=== PATIENT | female | born 1935 | race Caucasian/White ===

== ENCOUNTER 2018-11-22 20:02 | Inpatient (IN) | payer MEDICARE ==
[~2018-11-22] VITALS: Ht 149.9 cm; Wt 59.1 kg
[~2018-11-22 20:02] MED LIST: AMBIEN10 MG PO; ATENOLOL-CHLOR1 EACH PO; ATENOLOL50 MG PO; BUPROPION HCL150 MG PO; CITALOPRAM HBR20 MG PO; CLONIDINE HCL0.2 MG PO; COLCRYS0.6 MG PO; GLYBURIDE5 MG PO; HYDROCODON-ACE1 EA12 PO; KLOR-CON 88 MEQ PO; LISINOPRIL PO; OMEPRAZOLE20 MG PO; POTASSIUM CHLOR8 ME1 PO; PROMETHAZINE HC25 M1 PO; ULTRAM50 MG PO
[2018-11-22] MEDS ORDERED: SODIUM CHLORIDE 0.9% 500ML 500 ML IV ONE (20:30)
[2018-11-22] MEDS ORDERED: ACETAMINOPHEN 325 MG TAB PO ONE (20:45)
[2018-11-22 20:52] LABS: BASOPHILS % 0.3 % (0.0-1.0); EOSINOPHILS # (AUTO) 0.1 (0.0-0.4); EOSINOPHILS % 0.8 % (0.0-6.0); HEMATOCRIT 27.2 % (34.2-44.1); HEMOGLOBIN 9.1 g/dL (12.0-16.0); LYMPHOCYTES # (AUTO) 1.4 (1.0-3.2); LYMPHOCYTES % 14.6 % (18.0-39.1); MEAN CORPUSCULAR HEMOGLOBIN 30.7 pg (28-32); MEAN CORPUSCULAR HGB CONC 33.5 g/dL (31-35); MEAN CORPUSCULAR VOLUME 91.9 fL (81-99); MONOCYTES # (AUTO) 0.7 (0.2-0.8); MONOCYTES % 7.5 % (4.4-11.3); NEUTROPHILS # (AUTO) 7.1 (2.1-6.9); NEUTROPHILS % 76.3 % (38.7-80.0); PLATELET COUNT 198 x10e3/uL (140-360); RED BLOOD COUNT 2.96 x10e6/uL (3.6-5.1); RED CELL DISTRIBUTION WIDTH 13.6 % (11.7-14.4)
[2018-11-22 21:01] LABS: INR 0.99; PROTHROMBIN TIME 13.6 seconds (11.9-14.5)
[2018-11-22 21:02] LABS: PARTIAL THROMBOPLASTIN TIME 31.7 seconds (23.8-35.5)
[2018-11-22 21:09] LABS: ALBUMIN 3.2 g/dL (3.5-5.0); ALBUMIN/GLOBULIN RATIO 0.9 (0.8-2.0); ALKALINE PHOSPHATASE 100 IU/L (40-150); ANION GAP 13.1 mmol/L (8-16); BLOOD UREA NITROGEN 20 mg/dL (7-26); BUN/CREATININE RATIO 14 (6-25); CALCIUM 8.4 mg/dL (8.4-10.2); CARBON DIOXIDE 23 mmol/L (22-29); CHLORIDE 105 mmol/L (98-107); CREATINE KINASE 79 IU/L (29-168); CREATININE, SERUM 1.44 mg/dL (0.57-1.11); EST GLOMERULAR FILTRATION RATE 35 ML/MIN (60-); GLUCOSE 109 mg/dL (74-118); POTASSIUM 3.1 mmol/L (3.5-5.1); SODIUM 138 mmol/L (136-145)
--- NOTE | 2018-11-22 21:09 | Diagnostic Imaging Report ---
EXAMINATION: Head CT without contrast. HISTORY:Fall. COMPARISON:None. TECHNIQUE: Multidetector axial images were obtained from the foramen magnum to the vertex without contrast. The images were reconstructed using brain and bone algorithms. Thin section brain images were reformatted into coronal and sagittal planes. Dose modulation, iterative reconstruction, and/or weight based adjustment of the mA/kV was utilized to reduce the radiation dose to as low as reasonably achievable. Intravenous contrast: None IMAGE QUALITY: Acceptable. FINDINGS: Skull/scalp: No lytic or blastic. lesions. No surgical changes. 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 Nonspecific bilateral frontoparietal confluent and patchy white matter hypodensity are likely related to small vessel ischemic changes. No acute hemorrhage, mass or acute major vascular territorial infarct. Arteries: No density suggestive of thrombosis. Atherosclerotic calcification in bilateral carotid siphon. Dural sinuses: No abnormal density suggestive of thrombosis. Ventricles: No hydrocephalus or displacement. Extra-axial spaces: No abnormal density. Brain volume: Generalized age-related cerebral volume loss. Craniocervical junction: No mass, Chiari malformation, or basilar invagination. Sella: No mass. Paranasal/mastoid sinuses: Imaged portions unremarkable. IMPRESSION: 1. No acute posttraumatic intracranial abnormality. 2. Generalized age-related cerebral volume loss. 3. Moderate supratentorial white matter microvascular ischemic changes. Signed by: Dr. Pamela Forman M.D. on 11/22/2018 9:06 PM
[2018-11-22 21:10] LABS: ALANINE AMINOTRANSFERASE < 6 IU/L (0-55)
--- NOTE | 2018-11-22 21:15 | Diagnostic Imaging Report ---
History: Fall. Comparison studies: None Technique: Axial images were obtained through the cervical region.. Coronal and sagittal images reconstructed from the axial data. Dose modulation, iterative reconstruction, and/or weight based adjustment of the mA/kV was utilized to reduce the radiation dose to as low as reasonably achievable. Intravenous contrast: None Findings: Fractures: None. Soft tissue injuries: None. Atlantoaxial articulation: Intact. Alignment: Loss of normal cervical lordosis is either positional or due to muscle spasm. No scoliosis. 2 mm grade 1 anterolisthesis at C3-C4 and 1.5 mm grade 1 retrolisthesis at C4-C5 are likely degenerative. Cervicomedullary junction: No abnormalities. The foramen magnum is patent. Soft tissues: No abnormalities. Vertebrae: No fractures, infection or neoplasm. Degenerative changes: C3-C4: Mild to moderate degenerative disc disease. Mild right foraminal stenosis due to facet and uncovertebral arthrosis. C4-C5: Severe degenerative disc disease. Posterior disc osteophyte complex without significant canal stenosis. Moderate bilateral foraminal stenosis due to facet and uncovertebral arthrosis. C5-C6: Severe degenerative disc disease. Posterior disc osteophyte complex without canal stenosis. Severe right and moderate left foraminal stenosis due to facet and uncovertebral arthrosis. C6-C7: Severe degenerative disc disease. C7-T1: Moderate to severe degenerative disc disease. IMPRESSION: 1. No acute cervical spine fracture or dislocation. Loss of normal cervical lordosis is either positional or due to muscle spasm. 2. Ligament, spinal cord and or vascular abnormalities cannot be excluded on the basis of this examination. 3. Grade 1 anterolisthesis at C3-C4 and grade 1 L listhesis at C4-C5 is likely degenerative. 4. Cervical spondylosis as detailed above. Signed by: Dr. Pamela Forman M.D. on 11/22/2018 9:11 PM
--- NOTE | 2018-11-22 21:28 | Diagnostic Imaging Report ---
HIP LEFT 2-3 VW (+/- PELVIS) - 3 views HISTORY: Pain. Fall. COMPARISON: None available. FINDINGS: Bones: No acute displaced fracture. Impacted left femoral neck. Osseous alignment is within normal limits. Joints: The joint spaces are well-maintained. Soft tissues: The soft tissues appear unremarkable. IMPRESSION: Impacted left femoral neck, concerning for possible fracture. Lateral view were suboptimal. Signed by: Dr. Leo Linder M.D. on 11/22/2018 9:25 PM
--- NOTE | 2018-11-22 21:29 | Diagnostic Imaging Report ---
EXAMINATION: CHEST SINGLE (PORTABLE) INDICATION: ^FALL, FEVER COMPARISON: Chest x-ray 08/05/2014. FINDINGS: AP view TUBES and LINES: None. LUNGS: Lungs are well inflated. Bilateral peribronchial cuffing. There is no evidence of pneumonia or pulmonary edema. PLEURA: No pleural effusion or pneumothorax. HEART AND MEDIASTINUM: The cardiomediastinal silhouette is unremarkable. BONES AND SOFT TISSUES: No acute osseous lesion. Soft tissues are unremarkable. Left axillary surgical clips. UPPER ABDOMEN: No free air under the diaphragm. There are cholecystectomy clips. IMPRESSION: Bilateral peribronchial cuffing, which could represent viral etiology or reactive airway disease. Signed by: Dr. Leo Linder M.D. on 11/22/2018 9:26 PM
--- NOTE | 2018-11-22 21:30 | Diagnostic Imaging Report ---
FEMUR ONE VIEW LEFT - 1 views HISTORY: Pain. Fall COMPARISON: None available. FINDINGS: Bones: No acute displaced fracture. Impacted left femoral neck. Osseous alignment is within normal limits. Joints: Moderate to severe degenerative changes in the knee. Soft tissues: The soft tissues appear unremarkable. IMPRESSION: 1. Impacted left femoral neck, concerning for possible fracture. 2. Moderate to severe degenerative changes of the left knee. Signed by: Dr. Leo Linder M.D. on 11/22/2018 9:27 PM
[2018-11-22] MEDS ORDERED: POTASSIUM CHLORIDE 20 MEQ TAB CR PO ONE (21:45)
--- NOTE | 2018-11-22 22:29 | Diagnostic Imaging Report ---
EXAM: CT Chest WITHOUT contrast INDICATION: ^FEVER, ? RUL MASS COMPARISON: Chest x-ray 11/22/2017. 07/16/2014. CT chest 05/23/2014. TECHNIQUE: Chest was scanned utilizing a multidetector helical scanner from the lung apex through the level of the adrenal glands without administration of IV contrast. Absence of intravenous contrast decreases sensitivity for detection of lymphadenopathy and vascular pathology. Coronal and sagittal reformations were obtained. Routine protocol was performed. IV CONTRAST: None COMPLICATIONS: None RADIATION DOSE: Total DLP: 371.93 mGy*cm Estimated effective dose: (DLP x 0.014 x size factor) mSv CTDIvol has been reviewed. It is below the limits set by the Radiation Protocol Committee (RPC). Dose modulation, iterative reconstruction, and/or weight based adjustment of the mA/kV was utilized to reduce the radiation dose to as low as reasonably achievable. FINDINGS: LINES/ TUBES: None. LUNGS AND AIRWAYS: There is bibasilar atelectasis. Very mild bronchial wall thickening. Airways are normal. PLEURA: The pleural spaces are clear. HEART AND MEDIASTINUM: The thyroid gland is normal. No mediastinal, hilar or axillary lymphadenopathy. The heart is mildly enlarged. There is no pericardial effusion. Severe coronary artery calcifications of the LAD. Main pulmonary artery measures 2.4 cm. Ascending aorta measures 3.1 cm. UPPER ABDOMEN: Cholecystectomy. Small sliding hiatal hernia. Upper abdomen is otherwise unremarkable. BONES: The visualized bony thorax is within normal limits. SOFT TISSUES: Unremarkable. IMPRESSION: 1. Mild bronchial wall thickening, likely related to reactive airway disease. 2. Right upper lobe density seen on chest x-ray 11/22/2018 is unchanged compared to chest x-ray 07/16/[address] chest 05/23/2014. This correlates with vessels. Signed by: Dr. Leo Linder M.D. on 11/22/2018 10:26 PM
[2018-11-22] MEDS ORDERED: KCL 20MEQ/.9 SOD CHL 1,000 ML IV ONE (22:30)
[2018-11-22] MEDS: HYDRALAZINE HCL 20 MG/ML VIAL IV STA (22:30)
[2018-11-22] MEDS ORDERED: DEXTROSE 50% SYRINGE 50 ML IV PRN (22:30)
[2018-11-22] MEDS: MAGNESIUM SULFATE 2GM/50ML 50 ML IV ONE (22:32)
--- OUTSIDE RECORDS SUMMARY | 2018-11-22 23:17 | XMS REPORT ---
Author Author [facility] Address Unknown Phone Unavailable Care Team Providers [facility] Patient Care Secretary Name Role Phone Ria KOHLER Unavailable Unavailable Problems This patient has no known problems. Allergies, Adverse Reactions, Alerts This patient has no known allergies or adverse reactions. Medications This patient has no known medications. Results Test Description Test Time Test Comments Text Results Atomic Results Result Comments CT CHEST WO 2018-11-22 22:16:00 [place] [address] Patient Name: ROSEMARY POSADA MR #: [id number] : 1935 Age/Sex: 83/F Req #: [id number] Adm Physician: Ordered by: LG KOHLER MD Report #: [id number] Location: ER Room/Bed: Procedure: [id number] CT/CT CHEST WO Exam Date: 11/22/18 Exam Time: 6 REPORT STATUS: Signed EXAM: CT Chest WITHOUT contrast INDICATION: FEVER, ? RUL MASS COMPARISON: Chest x-ray 11/22/2017. 07/16/2014. CT chest 05/23/2014. TECHNIQUE: Chest was scanned utilizing a multidetector helical scanner from the lung apex through the level of the adrenal glands without administration of IV contrast. Absence of intravenous contrast decreases sensitivity for detection of lymphadenopathy and vascular pathology. Coronal and sagittal reformations were obtained. Routine protocol was performed. IV CONTRAST: None COMPLICATIONS: None RADIATION DOSE: Total DLP: 371.93 mGy*cm Estimated effective dose: (DLP x 0.014 x size factor) mSv CTDIvol has been reviewed. It is below the limits set by the Radiation Protocol Committee (RPC). Dose modulation, iterative reconstruction, and/or weight based adjustment of the mA/kV was utilized to reduce the radiation dose to as low as reasonably achievable. FINDINGS: LINES/ TUBES: None. LUNGS AND AIRWAYS: There is bibasilar atelectasis. Very mild bronchial wall thickening. Airways are normal. PLEURA: The pleural spaces are clear. HEART AND MEDIASTINUM: The thyroid gland is normal. No mediastinal, hilar or axillary lymphadenopathy. The heart is mildly enlarged. There is no pericardial effusion. Severe coronary artery calcifications of the LAD. Main pulmonary artery measures 2.4 cm. Ascending aorta measures 3.1 cm. UPPER ABDOMEN: Cholecystectomy. Small sliding hiatal hernia. Upper abdomen is otherwise unremarkable. BONES: The visualized bony thorax is within normal limits. SOFT TISSUES: Unre markable. IMPRESSION: 1. Mild bronchial wall thickening, likely related to reactive airway disease. 2. Right upper lobe density seen on chest x-ray 11/22/2018 is unchanged compared to chest x-ray 07/16/[address] chest 05/23/2014. This correlates with vessels. Signed by: Dr. James Linder M.D. on 11/22/2018 10:26 PM Dictated By: JAMES LINDER MD 25 Transcribed By: ELODIA on 11/22/182225 COPY TO: LG KOHLER MD FEMUR ONE VIEW LEFT 2018-11-22 21:26:00 [place] [address] Patient Name: ROSEMARY POSADA MR #: [id number] : 1935 Age/Sex: 83/F Req #: [id number] Adm Physician: Ordered by: LG KOHLER MD Report #: [id number] Location: ER Room/Bed: Procedure: DX/FEMUR ONE VIEW LEFT Exam Date: Exam Time: REPORT STATUS: Signed FEMUR ONE VIEW LEFT - 1 views HISTORY: Pain. Fall COMPARISON: None available. FINDINGS: Bones: No acute displaced fracture. Impacted left femoral neck. Osseous alignment is within normal limits. Joints: Moderate to severe degenerative changes in the knee. Soft tissues: The soft tissues appear unremarkable. IMPRESSION: 1. Impacted left femoral neck, concerning for possible fracture. 2. Moderate to severe degenerative changes of the left knee. Signed by: Dr. James Linder M.D. on 11/22/2018 9:27 PM Dictated By: JAMES LINDER MD 26 Transcribed By: ELODIA on 11/22/182126 COPY TO: LG KOHLER MD CHEST SINGLE (PORTABLE) 2018-11-22 21:25:00 [place] [address] Patient Name: ROSEMARY POSADA MR #: [id number] : 1935 Age/Sex: 83/F Req #: [id number] Adm Physician: Ordered by: LG KOHLER MD Report #: [id number] Location: ER Room/Bed: Procedure: [id number] DX/CHEST SINGLE (PORTABLE) Exam Date: 11/22/18 Exam Time: 2049 REPORT STATUS: Signed EXAMINATION: CHEST SINGLE (PORTABLE) INDICA TION: FALL, FEVER COMPARISON: Chest x-ray 08/05/2014. FINDINGS: AP view TUBES and LINES: None. LUNGS: Lungs are well inflated. Bilateral peribronchial cuffing. There is no evidence of pneumonia or pulmonary edema. PLEURA: No pleural effusion or pneumothorax. HEART AND MEDIASTINUM: The cardiomediastinal silhouette is unremarkable. BONES AND SOFT TISSUES: No acute osseous lesion. Soft tissues are unremarkable. Left axillary surgical clips. UPPER ABDOMEN: No free air under the diaphragm. There are cholecystectomy clips. IMPRESSION: Bilateral peribronchial cuffing, which could represent viral etiology or reactive airway disease. Signed by: Dr. James Linder M.D. on 11/22/2018 9:26 PM Dictated By: JAMES LINDER MD 25 Transcribed By: ELODIA on 11/22/182125 COPY TO: LG KOHLER MD HIP LEFT 2-3 VW (+/- PELVIS) 2018-11-22 21:24:00 [place] [address] Patient Name: ROSEMARY POSADA MR #: [id number] : 1935 Age/Sex: 83/F Req #: [id number] Adm Physician: Ordered by: LG KOHLER MD Report #: [id number] Location: ER Room/Bed: Procedure: [id number] DX/HIP LEFT 2-3 VW (+/- PELVIS) Exam Date: Exam Time: REPORT STATUS: Signed HIP LEFT 2-3 VW (+/- PELVIS) - 3 views HISTORY: Pain. Fall. COMPARISON: None available. FINDINGS: Bones: No acute displaced fracture. Impacted left femoral neck. Osseous alignment is within normal limits. Joints: The joint spaces are well-maintained. Soft tissues: The soft tissues appear unremarkable. IMPRESSION: Impacted left femoral neck, concerning for possible fracture. Lateral view were suboptimal. Signed by: Dr. James Linder M.D. on 11/22/2018 9:25 PM Dictated By: JAMES LINDER MD 24 Transcribed By: ELODIA on 11/22/182124 COPY TO: LG KOHLER MD CT CERVICAL SPINE WO 2018-11-22 21:06:00 [place] [address] Patient Name: ROSEMARY POSADA MR #: [id number] : 1935 Age/Sex: 83/F Req #: [id number] Adm Physician: Ordered by: LG KOHLER MD Report #: [id number] Location: ER Room/Bed: Procedure: [id number] CT/CT CERVICAL SPINE WO Exam Date: 11/22/18 Exam Time: 2046 REPORT STATUS: Signed History: Fall. Comparison studies: None Tech nique: Axial images were obtained through the cervical region.. Coronal and sagittal images reconstructed from the axial data. Dose modulation, iterative reconstruction, and/or weight based adjustment of the mA/kV was utilized to reduce the radiation dose to as low as reasonably achievable. Intravenous contrast: None Findings: Fractures: None. Soft tissue injuries: None. Atlantoaxial articulation: Intact. Alignment: Loss of normal cervical lordosis is either positional or due to muscle spasm. No scoliosis. 2 mm grade 1 anterolisthesis at C3-C4 and 1.5 mm grade 1 retrolisthesis at C4-C5 are likely degenerative. Cervicomedullary junction: No abnormalities. The foramen magnum is patent. Soft tissues: No abnormalities. Vertebrae: No fractures, infection or neoplasm. Degenerative changes: C3-C4: Mild to moderate degenerative disc disease. Mild right foraminal stenosis due to facet and uncovertebral arthrosis. C4-C5: Severe degenerative disc disease. Posterior disc osteophyte complex without significant canal stenosis. Moderate bilateral foraminal stenosis due to facet and uncovertebral arthrosis. C5-C6: Severe degenerative disc disease. Posterior disc osteophyte complex without canal stenosis. Severe right and moderate left foraminal stenosis due to facet and uncovertebral arthrosis. C6-C7: Severe degenerative disc disea se. C7-T1: Moderate to severe degenerative disc disease. IMPRESSION: 1. No acute cervical spine fracture or dislocation. Loss of normal cervical lordosis is either positional or due to muscle spasm. 2. Ligament, spinal cord and or vascular abnormalities cannot be excluded on the basis of this examination. 3. Grade 1 anterolisthesis at C3-C4 and grade 1 L listhesis at C4-C5 is likely degenerative. 4. Cervical spondylosis as detailed above. Signed by: Dr. Pamela Forman M.D. on 11/22/2018 9:11 PM Dictated By: PAMELA FORMAN MD 10 Transcribed By: ELODIA on 11/22/182110 COPY TO: LG KOHLER MD CT BRAIN WO 2018-11-22 21:02:00 [place] [address] Patient Name: ROSEMARY POSADA MR #: [id number] : 1935 Age/Sex: 83/F Req #: [id number] Adm Physician: Ordered by: LG KOHLER MD Report #: [id number] Location: Room/Bed: Procedure: [id number] CT/CT BRAIN WO Exam Date: 11/22/18 Exam Time: 2046 REPORT STATUS: Signed EXAMINATION: Head CT without contrast. HISTORY:Fall. COMPARISON:None. TECHNIQUE: Multidetector axial images were obtained from the foramen magnum to the vertex without contrast. The images were reconstructed using brain and bone algorithms. Thin section brain images were reformatted into coronal and sagittal planes. Dose modulation, iterative reconstruction, and/or weight based adjustment of the mA/kV was utilized to reduce the radiation dose to as low as reasonably achievable. Intravenous contrast: None IMAGE QUALITY: Acceptable. FINDINGS: Skull/scalp: No lytic or blastic. lesions. No surgical changes. 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 Nonspecific bilateral frontoparietal confluent and patchy white matter hypodensity are likely related to small vessel ischemic changes. No acute hemorrhage, mass or acute major vascular territorial infarct. Arteries: No density suggestive of thrombosis. Atherosclerotic calcification in bilateral carotid siphon. Dural sinuses: No abnormal density suggestive of thrombosis. Ventricles: No hydrocephalus or displacement. Extra- axial spaces: No abnormal density. Brain volume: Generalized age-related cerebral volume loss. Craniocervical junction: No mass, Chiari malformation, or basilar invagination. Sella: No mass. Paranasal/mastoid sinuses: Imaged portions unremarkable. IMPRESSION: 1. No acute posttraumatic intracranial abnormality. 2. Generalized age- related cerebral volume loss. 3. Moderate supratentorial white matter microvascular ischemic changes. Signed by: Dr. Pamela Forman M.D. on 11/22/2018 9:06 PM Dictated By: PAMELA FORMAN MD 05 Transcribed By: ELODIA on 11/22/182105 COPY TO: LG KOHLER MD
[2018-11-22 23:55] LABS: BILIRUBIN,URINE NEGATIVE (NEGATIVE); CLARITY,URINE CLEAR (CLEAR); COLOR,URINE YELLOW (YELLOW); KETONES,URINE NEGATIVE (NEGATIVE); LEUKOCYTE ESTERASE ,URINE NEGATIVE (NEGATIVE); NITRITE,URINE NEGATIVE (NEGATIVE); PROTEIN,URINE DIPSTICK NEGATIVE (NEGATIVE); URINE UROBILINOGEN 0.2 mg/dL (0.2 - 1)
--- NOTE | 2018-11-22 23:55 | NUR ---
Received from Emergency Room via stretcher.Patient is alert and oriented. Assisted transfer to bed. Oriented to room. Call light within reach.
[2018-11-22 23:59] LABS: EPITHELIAL CELLS,URINE RARE /LPF; RBC,URINE 0-5 /HPF (0-5); WBC,URINE (MAN) 0-5 /HPF (0-5)
[2018-11-23] VITALS (10 sets, daily range): BP systolic 164–190; BP diastolic 70–80
--- NOTE | 2018-11-23 00:15 | NUR ---
Foot pumps, JENNIFER hose, bucks traction applied to both lower extremities as ordered.
[2018-11-23] MEDS: MORPHINE SULFATE INJ 4 MG/ML INJ 1ML IV PRN ×5 (00:51→17:54)
[2018-11-23] MEDS: ONDANSETRON HCL INJ 2MG/ML 2ML 2 MG/ML VIAL IV PRN ×4 (01:25→17:54)
[2018-11-23] MEDS ORDERED: ATENOLOL50 MG PO (04:26)
[2018-11-23] MEDS ORDERED: DICYCLOMINE HCL10 MG (04:32)
[2018-11-23] MEDS ORDERED: CITALOPRAM HBR20 MG PO (04:32)
[2018-11-23] MEDS: HYDRALAZINE HCL 20 MG/ML VIAL IV PRN ×3 (05:23→16:20)
[2018-11-23] MEDS ORDERED: TRAMADOL HCL 50 MG TAB PO PRN (06:30)
[2018-11-23 06:37] LABS: BASOPHILS # (AUTO) 0.1 (0.0-0.1); BASOPHILS % 0.5 % (0.0-1.0); EOSINOPHILS # (AUTO) 0.2 (0.0-0.4); EOSINOPHILS % 1.3 % (0.0-6.0); HEMOGLOBIN 9.7 g/dL (12.0-16.0); LYMPHOCYTES # (AUTO) 2.4 (1.0-3.2); LYMPHOCYTES % 21.4 % (18.0-39.1); MEAN CORPUSCULAR HGB CONC 32.3 g/dL (31-35); MEAN CORPUSCULAR VOLUME 92.9 fL (81-99); MONOCYTES # (AUTO) 0.9 (0.2-0.8); MONOCYTES % 7.6 % (4.4-11.3); NEUTROPHILS # (AUTO) 7.7 (2.1-6.9); NEUTROPHILS % 68.7 % (38.7-80.0); PLATELET COUNT 235 x10e3/uL (140-360); RED BLOOD COUNT 3.23 x10e6/uL (3.6-5.1); RED CELL DISTRIBUTION WIDTH 13.8 % (11.7-14.4)
[2018-11-23 06:46] LABS: ALBUMIN 3.3 g/dL (3.5-5.0); ALBUMIN/GLOBULIN RATIO 0.9 (0.8-2.0); ANION GAP 11.7 mmol/L (8-16); CALCIUM 8.8 mg/dL (8.4-10.2); CREATININE, SERUM 1.38 mg/dL (0.57-1.11); MAGNESIUM 1.7 MG/DL (1.3-2.1); POTASSIUM 4.7 mmol/L (3.5-5.1)
[2018-11-23 07:08] LABS: CREATINE KINASE MB 3.2 ng/mL (0-5.0)
[2018-11-23] MEDS: INSULIN LISPRO 100 UNIT/1 ML 3ML VIAL SQ SCH ×4 (07:30→21:00)
[2018-11-23] MEDS: POTASSIUM CHLORIDE 20 MEQ TAB CR PO SCH (08:48)
[2018-11-23] MEDS: ATENOLOL 100 MG TAB PO SCH (08:48)
[2018-11-23] MEDS ORDERED: CHLORTHALIDONE 25 MG TAB PO SCH (09:00)
[2018-11-23] MEDS ORDERED: PANTOPRAZOLE SOD 40 MG TABEC PO SCH (09:00)
--- NOTE | 2018-11-23 11:17 | History and Physical ---
CHIEF COMPLAINT: An 83-year-old female comes in with status post fall and sustaining a left femoral fracture. HISTORY OF PRESENTING ILLNESS: Ms. Sherrell Bass with a history of hypertension, history of diet-controlled diabetes mellitus, was in usual state of health until the patient was going to the bathroom, sat down on the commode and she got up, she fell and sustained a left hip injury. The patient stayed at home for about a day. The pain was not bearable and exacerbated on walking. The patient came in, was found to have left femoral hip fracture. PAST MEDICAL HISTORY: History of hypertension, history of diabetes mellitus, history of reflux esophagitis, history of chronic insomnia, history of endometrial cancer. PAST SURGICAL HISTORY: History of hysterectomy and cholecystectomy. The patient had a hysterectomy in 2008. MEDICATIONS: She takes at home, atenolol 50 mg daily, atenolol/chlorthalidone 100/25, citalopram 20, clonidine 0.2 mg at bedtime, dicyclomine 10 mg as needed, omeprazole 20 mg daily, potassium chloride 80 mEq daily, tramadol 50 mg daily p.r.n. as needed, and zolpidem 10 mg at bedtime and 40 mg of lisinopril. ALLERGIES: THE PATIENT IS NOT ALLERGIC TO ANY MEDICATION. REVIEW OF SYSTEMS: Negative for chest pain. No shortness of breath. No nausea. No vomiting. No diarrhea. No constipation. No rectal bleeding. No hematochezia. No hematemesis. The patient has a history of chronic fever especially at nighttime and has been having this. No etiology has been noted. PHYSICAL EXAMINATION: VITAL SIGNS: Temperature is 97, blood pressure is 184/80, and pulse oximetry is 95%. CVS: S1, S2 normal. Regular rate and rhythm. ABDOMEN: Nontender and nondistended. EXTREMITIES: Right lower extremity in traction, tender to palpate in the hip. LABORATORY DATA: Initial white count is 2.33, hemoglobin of 9.1, hematocrit of 27.2, no left shift present. Chemistry; sodium of 138, potassium 3.1, magnesium is 1. Coags; PT, INR normal. Urine all within normal limits. Influenza A and B negative. ASSESSMENT: Right hip closed fracture. Orthopedic consult with Dr. Hdz has been done. The patient's hypokalemia has been corrected. Hypomagnesemia has been corrected. Fever, we will continue to monitor the patient. Tylenol is on order. For hypertension, we will restart all her medications. For diabetes, we will do Chem sticks q.a.c. and at bedtime and continue to monitor the patient. Further recommendation per clinical course, and also the patient will be on-call surgery depending on Dr. Hdz. MD ROGELIO Azevedo/MIRTAL /[id number]
[2018-11-23] MEDS: TRAMADOL HCL 50 MG TAB PO PRN (11:50)
--- NOTE | 2018-11-23 14:08 | NUR ---
PT REQUESTING MEDICATION FOR INDIGESTION. PAGED DR. FREEMAN AT THIS TIME. AWAITING CALL BACK.
[2018-11-23] MEDS: PANTOPRAZOLE SOD 40 MG TABEC PO SCH (14:56)
[2018-11-23 15:00] LABS: CREATINE KINASE MB 4.3 ng/mL (0-5.0)
[2018-11-23] MEDS: CLONIDINE HCL 0.2 MG TAB PO SCH (20:55)
[2018-11-23] MEDS: CITALOPRAM HYDROBROMIDE 20 MG TAB PO SCH (20:55)
[2018-11-23] MEDS: DIPHENHYDRAMINE HCL 25 MG CAP PO PRN (20:55)
[2018-11-23] MEDS: ZOLPIDEM TARTRATE 10 MG TAB PO SCH (20:55)
[2018-11-24] VITALS (8 sets, daily range): BP systolic 120–190; BP diastolic 56–79
[2018-11-24 06:04] LABS: BASOPHILS % 0.3 % (0.0-1.0); EOSINOPHILS % 0.3 % (0.0-6.0); HEMATOCRIT 29.5 % (34.2-44.1); HEMOGLOBIN 9.2 g/dL (12.0-16.0); LYMPHOCYTES % 7.5 % (18.0-39.1); MEAN CORPUSCULAR HEMOGLOBIN 30.1 pg (28-32); MEAN CORPUSCULAR HGB CONC 31.2 g/dL (31-35); MONOCYTES % 7.7 % (4.4-11.3); NEUTROPHILS # (AUTO) 11.2 (2.1-6.9); NEUTROPHILS % 83.7 % (38.7-80.0); PLATELET COUNT 219 x10e3/uL (140-360); RED BLOOD COUNT 3.06 x10e6/uL (3.6-5.1); RED CELL DISTRIBUTION WIDTH 14.3 % (11.7-14.4)
[2018-11-24 06:08] LABS: MEAN CORPUSCULAR VOLUME 96.4 fL (81-99)
[2018-11-24 06:25] LABS: ANION GAP 13.7 mmol/L (8-16); CALCIUM 9.5 mg/dL (8.4-10.2); CREATININE, SERUM 2.07 mg/dL (0.57-1.11); POTASSIUM 4.7 mmol/L (3.5-5.1)
[2018-11-24] MEDS: ONDANSETRON HCL INJ 2MG/ML 2ML 2 MG/ML VIAL IV PRN ×4 (07:19→20:09)
[2018-11-24] MEDS: INSULIN LISPRO 100 UNIT/1 ML 3ML VIAL SQ SCH ×4 (07:30→21:00)
[2018-11-24] MEDS: PANTOPRAZOLE SOD 40 MG TABEC PO SCH ×2 (09:00→16:30)
[2018-11-24] MEDS: POTASSIUM CHLORIDE 20 MEQ TAB CR PO SCH (09:00)
[2018-11-24] MEDS: ATENOLOL 100 MG TAB PO SCH (09:01)
--- NOTE | 2018-11-24 10:06 | Progress Note ---
DATE: 11/24/2018 SUBJECTIVE: An 83-year-old female comes in with a hip fracture. The patient is currently asymptomatic. Slept well. The patient is on traction at this time. No chest pain. No shortness of breath. No nausea, vomiting, or diarrhea. No palpitation. PHYSICAL EXAMINATION: VITAL SIGNS: Temperature is 99.0. The patient's T-max is 99.8 that was yesterday at 1930, blood pressure is 146/72, respirations of 20, and pulse of 96. HEENT: Normocephalic, atraumatic. CVS: S1 and S2 regular. ABDOMEN: Nontender, nondistended. EXTREMITIES: No clubbing, no cyanosis, and no edema. The patient is on traction at this time and hip tenderness is noted. LABORATORY DATA: Today's white count is 13,000, hemoglobin of 9.2, and hematocrit of 29.5. There was left shift present today. Chemistry shows 140 sodium, potassium 4.7, BUN of 23, creatinine of 2.07 compared to yesterday's 1.38. MICROBIOLOGY: Urine culture preliminary shows no growth. Blood culture has been negative too. ASSESSMENT AND PLAN: Right hip fracture. The patient has been seen by Dr. Hdz. Consult has been put. The patient is scheduled for surgery in the morning. Hypomagnesemia corrected. The patient's fever, we will continue to monitor. Continue with Tylenol. The patient is diabetic. Chemsticks and insulin sliding scale. Hypertension, we will restart her medications. Her kidney functions have gone a little on the lower side. We will go ahead and increase her hydration to 100 mL an hour and check her labs in the morning. The patient also has irregular rhythm at this time. We will go ahead and have her placed on telemetry. Further recommendation per clinical course. We will continue to monitor the patient as far as renal function. We will check her BMP in the morning. MD ROGELIO Azevedo/MODL /[id number]
--- NOTE | 2018-11-24 13:38 | NUR ---
PAGED DR. PRITCHETT TO NOTIFY REGARDING NEW CONSULT. SPOKE TO
[2018-11-24] MEDS: LEVOFLOXACIN 250MG/D5W 50ML 50 ML IV SCH (14:45)
[2018-11-24] MEDS: SODIUM CHLORIDE 0.9% 1000ML 1,000 ML IV SCH (14:45)
[2018-11-24] MEDS: MORPHINE SULFATE INJ 4 MG/ML INJ 1ML IV PRN (14:45)
[2018-11-24] MEDS: DIPHENHYDRAMINE HCL 25 MG CAP PO PRN (15:00)
[2018-11-24] MEDS ORDERED: ENOXAPARIN SOD INJ 40 MG/0.4 ML SYR SC ONE (16:00)
[2018-11-24] MEDS ORDERED: ENOXAPARIN 30 MG/0.3 ML SYR SC ONE (16:00)
[2018-11-24] MEDS: HYDRALAZINE HCL 20 MG/ML VIAL IV PRN (16:30)
[2018-11-24] MEDS: ZOLPIDEM TARTRATE 10 MG TAB PO SCH (20:10)
[2018-11-24] MEDS: CITALOPRAM HYDROBROMIDE 20 MG TAB PO SCH (20:10)
[2018-11-24] MEDS: TRAMADOL HCL 50 MG TAB PO PRN (20:10)
[2018-11-24] MEDS: CLONIDINE HCL 0.2 MG TAB PO SCH (20:47)
[2018-11-24] MEDS: ACETAMINOPHEN 325 MG TAB PO PRN (21:57)
[2018-11-25] VITALS (8 sets, daily range): BP systolic 110–197; BP diastolic 56–84
[2018-11-25] MEDS: SODIUM CHLORIDE 0.9% 1000ML 1,000 ML IV SCH (03:02)
[2018-11-25] MEDS: BISACODYL 5 MG TAB EC PO SCH ×4 (06:15→23:56)
[2018-11-25 06:44] LABS: BASOPHILS % 0.4 % (0.0-1.0); EOSINOPHILS # (AUTO) 0.2 (0.0-0.4); EOSINOPHILS % 2.5 % (0.0-6.0); HEMATOCRIT 23.3 % (34.2-44.1); HEMOGLOBIN 7.3 g/dL (12.0-16.0); LYMPHOCYTES # (AUTO) 1.3 (1.0-3.2); MEAN CORPUSCULAR HEMOGLOBIN 30.3 pg (28-32); MEAN CORPUSCULAR HGB CONC 31.3 g/dL (31-35); MEAN CORPUSCULAR VOLUME 96.7 fL (81-99); MONOCYTES % 11.5 % (4.4-11.3); NEUTROPHILS # (AUTO) 6.4 (2.1-6.9); NEUTROPHILS % 71.2 % (38.7-80.0); PLATELET COUNT 162 x10e3/uL (140-360); RED BLOOD COUNT 2.41 x10e6/uL (3.6-5.1); RED CELL DISTRIBUTION WIDTH 13.9 % (11.7-14.4)
[2018-11-25 06:59] LABS: ANION GAP 10.4 mmol/L (8-16); CALCIUM 8.8 mg/dL (8.4-10.2); CREATININE, SERUM 2.14 mg/dL (0.57-1.11); POTASSIUM 4.4 mmol/L (3.5-5.1)
[2018-11-25] MEDS: INSULIN LISPRO 100 UNIT/1 ML 3ML VIAL SQ SCH ×4 (07:30→20:51)
--- NOTE | 2018-11-25 07:31 | NUR ---
infectious has cleared pt for sx
--- NOTE | 2018-11-25 07:39 | NUR ---
paged md degroot for possible sx spoke with md campos regarding low hbg count new orders received to transfuse at this time
[2018-11-25] MEDS ORDERED: SODIUM CHLORIDE 0.9% 250ML 250 ML IV ONE (08:00)
--- NOTE | 2018-11-25 08:10 | NUR ---
spoke with md degroot. has scheduled sx for tomorrow due to pt hgb status
[2018-11-25] MEDS: PANTOPRAZOLE SOD 40 MG TABEC PO SCH ×2 (09:00→16:34)
[2018-11-25] MEDS: ATENOLOL 100 MG TAB PO SCH (09:00)
[2018-11-25] MEDS: POTASSIUM CHLORIDE 20 MEQ TAB CR PO SCH (09:00)
--- NOTE | 2018-11-25 10:30 | NUR ---
1st unit of blood now started. verified with rhonda landry at bedside
--- NOTE | 2018-11-25 12:30 | NUR ---
1st unit of blood transfusion complete . pt had no s.s of a/r , will continue to monitor
[2018-11-25] MEDS: MORPHINE SULFATE INJ 4 MG/ML INJ 1ML IV PRN ×2 (12:37→18:07)
[2018-11-25] MEDS: ONDANSETRON HCL INJ 2MG/ML 2ML 2 MG/ML VIAL IV PRN (12:37)
--- NOTE | 2018-11-25 13:20 | NUR ---
2ND UNIT OF BLOOD STARTED. VERIFIED WITH RN LUIZA AT BEDSIDE
[2018-11-25] MEDS: HYDRALAZINE HCL 20 MG/ML VIAL IV PRN ×2 (13:36→23:31)
[2018-11-25] MEDS ORDERED: FUROSEMIDE INJ 10 MG/ML 2 ML VIAL IV ONE (14:30)
[2018-11-25] MEDS: LEVOFLOXACIN 250MG/D5W 50ML 50 ML IV SCH (15:53)
[2018-11-25] MEDS: ONDANSETRON HCL 4 MG ORAL DISINTEGRATING TAB PO PRN (18:07)
[2018-11-25 20:02] LABS: HEMATOCRIT 36.9 % (34.2-44.1); HEMOGLOBIN 12.4 g/dL (12.0-16.0)
[2018-11-25] MEDS: ZOLPIDEM TARTRATE 10 MG TAB PO SCH (20:50)
[2018-11-25] MEDS: CLONIDINE HCL 0.2 MG TAB PO SCH (20:50)
[2018-11-25] MEDS: CITALOPRAM HYDROBROMIDE 20 MG TAB PO SCH (20:50)
[2018-11-25] MEDS: LISINOPRIL 20 MG TAB PO SCH (20:51)
[2018-11-25] MEDS ORDERED: LISINOPRIL 40 MG PO SCH (21:00)
[2018-11-26] VITALS (14 sets, daily range): BP systolic 107–188; BP diastolic 52–105
[2018-11-26] MEDS: BISACODYL 5 MG TAB EC PO SCH ×5 (04:11→23:19)
[2018-11-26 06:02] LABS: BASOPHILS # (AUTO) 0.1 (0.0-0.1); BASOPHILS % 0.4 % (0.0-1.0); EOSINOPHILS # (AUTO) 0.1 (0.0-0.4); EOSINOPHILS % 0.8 % (0.0-6.0); HEMATOCRIT 37.8 % (34.2-44.1); LYMPHOCYTES % 7.6 % (18.0-39.1); MEAN CORPUSCULAR HEMOGLOBIN 31.1 pg (28-32); MEAN CORPUSCULAR HGB CONC 34.4 g/dL (31-35); MEAN CORPUSCULAR VOLUME 90.4 fL (81-99); MONOCYTES # (AUTO) 1.3 (0.2-0.8); MONOCYTES % 9.9 % (4.4-11.3); NEUTROPHILS # (AUTO) 10.5 (2.1-6.9); NEUTROPHILS % 80.9 % (38.7-80.0); PLATELET COUNT 207 x10e3/uL (140-360); RED BLOOD COUNT 4.18 x10e6/uL (3.6-5.1); RED CELL DISTRIBUTION WIDTH 14.1 % (11.7-14.4)
[2018-11-26 06:16] LABS: ANION GAP 16.2 mmol/L (8-16); CREATININE, SERUM 1.96 mg/dL (0.57-1.11); POTASSIUM 3.2 mmol/L (3.5-5.1)
--- NOTE | 2018-11-26 06:54 | NUR ---
INFORMED DR. FREEMAN REGARDING POTASSIUM READING 3.2. NEW ORDER RCV FOR POTASSIUM 40MG IV TO BE GIVEN OVER 4 HOURS.
[2018-11-26] MEDS ORDERED: POTASSIUM CHLORIDE 20MEQ/100ML 200 ML IV ONE (07:00)
[2018-11-26] MEDS ORDERED: CEFAZOLIN SOD 2 GM/D5W 50ML 50 ML IV ONE (07:00)
[2018-11-26] MEDS ORDERED: CEFAZOLIN SOD 1 GM VIAL IV ONE (07:00)
[2018-11-26] MEDS: PANTOPRAZOLE SOD 40 MG TABEC PO SCH ×2 (07:30→16:30)
[2018-11-26] MEDS: INSULIN LISPRO 100 UNIT/1 ML 3ML VIAL SQ SCH ×4 (07:30→21:00)
--- NOTE | 2018-11-26 07:35 | NUR ---
Rcvd patient in report this am. Patient is awake in bed at this time. Patient is NPO at this time. Patient in bucks traction as well. No s/s of distress noted
[2018-11-26] MEDS: POTASSIUM CHLORIDE 20MEQ/100ML 100 ML IV SCH ×2 (07:50→09:34)
[2018-11-26] MEDS: HYDRALAZINE HCL 20 MG/ML VIAL IV PRN (07:57)
[2018-11-26] MEDS: POTASSIUM CHLORIDE 20 MEQ TAB CR PO SCH (08:17)
[2018-11-26] MEDS: SODIUM CHLORIDE 0.9% 1000ML 1,000 ML IV SCH ×3 (08:45→14:27)
[2018-11-26] MEDS: BISACODYL 10 MG SUPP PR PRN (09:34)
[2018-11-26] MEDS: ONDANSETRON HCL 4 MG ORAL DISINTEGRATING TAB PO PRN (09:41)
[2018-11-26] MEDS: MORPHINE SULFATE INJ 4 MG/ML INJ 1ML IV PRN (09:41)
--- NOTE | 2018-11-26 10:47 | NUR ---
Patient c/o severe constipation. Suppository given and patient requesting an enema. Call placed to MD for orders. Orders noted
[2018-11-26] MEDS: MINERAL OIL 132 ML BTL PR PRN (11:13)
--- NOTE | 2018-11-26 12:57 | NUR ---
Patient went to OR at this time. Family at bedside
[2018-11-26] MEDS ORDERED: BACITRACIN 50,000 UNIT VIAL ONE (13:02)
[2018-11-26] MEDS ORDERED: LIDOCAINE HCL 2% LOCAL INJ 5 ML SDV VIAL INJ ONE (13:15)
[2018-11-26] MEDS ORDERED: SEVOFLURANE INHAL SOLN 250 ML PEN BTL ONE (13:15)
[2018-11-26] MEDS ORDERED: EPHEDRINE SULFATE INJ 50 MG/10 ML SYR ONE (13:15)
[2018-11-26] MEDS ORDERED: ONDANSETRON HCL INJ 2MG/ML 2ML 2 MG/ML VIAL ONE (13:15)
[2018-11-26] MEDS ORDERED: PROPOFOL IV EMULSION 10 MG/ML 20 ML VIAL ONE (13:15)
[2018-11-26] MEDS ORDERED: ROCURONIUM BROMIDE 10 MG/ML 5ML VIAL ONE (13:15)
[2018-11-26] MEDS: LEVOFLOXACIN 250MG/D5W 50ML 50 ML IV SCH (14:00)
[2018-11-26] MEDS ORDERED: HYDROMORPHONE 0.2MG/ML-SOD CHL 30ML PCA SYRINGE IV PRN (14:30)
[2018-11-26] MEDS ORDERED: ACETAMINOPHEN 650 MG SUPP PR PRN (14:30)
[2018-11-26] MEDS ORDERED: NALOXONE HCL INJ 0.4 MG/ML AMP IV PRN (14:30)
[2018-11-26] MEDS ORDERED: HYDROMORPHONE 0.2MG/ML-SOD CHL 30ML PCA SYRINGE IV ONE (15:50)
--- NOTE | 2018-11-26 15:51 | NUR ---
Report given to KATHERIN Hilliard. Patient to transfer to ICU after surgery. Family informed and aware
--- NOTE | 2018-11-26 16:58 | Diagnostic Imaging Report ---
Radiographs of the left hip and pelvis - 2 views HISTORY: Pain. Postop COMPARISON: 11/22/2018 FINDINGS: Bones: Osseous alignment is within normal limits. Joints: Surgical screws through the proximal left femur are intact. There are associated postsurgical changes about the left hip. Soft tissues: The soft tissues appear unremarkable. IMPRESSION: Surgical screws through the proximal left femur are intact. There are associated postsurgical changes about the left hip Signed by: Dr. Alexis Ibarra M.D. on 11/26/2018 4:55 PM
--- NOTE | 2018-11-26 17:09 | NUR ---
GAVE PACKET OF INFORMATION WITH COMMUNITY [employer]OURCES FOR ASSISTANCE WITH LOW TO NO INCOME TO PATIENT. RESOURCES THAT PATIENT MAY BE ABLE TO FOLLOW UP UPON DISCHARGE. PT EDUCATED ON EACH RESOURCE AND UNDERSTANDING HOW TO FOLLOW UP TO SEE IF QUALIFIED FOR EACH RESOURCE. Addendum: 11/27/18 at 0754 by Mariama Parry CM INCORRECT PT ENTRY THIS DOES NOT APPLY FOR THIS PT
[2018-11-26] MEDS ORDERED: PIPERACILLIN/TAZO 2.25 GM 50 ML IV SCH (18:00)
[2018-11-26] MEDS ORDERED: CEFAZOLIN SOD 1 GM/NS 50ML 50 ML IV SCH (18:00)
[2018-11-26] MEDS: ACETAMINOPHEN 1000 MG/100 ML IV SCH (18:04)
[2018-11-26] MEDS ORDERED: MIDAZOLAM HCL 2 MG/2 ML VIAL ONE (19:54)
[2018-11-26] MEDS ORDERED: FENTANYL CITRATE/PF 100MCG/2 ML INJ ONE (19:54)
[2018-11-26] MEDS: PIPERACILLIN/TAZO 2.25 GM 50 ML IV SCH (20:00)
[2018-11-26] MEDS: ZOLPIDEM TARTRATE 10 MG TAB PO SCH (21:00)
[2018-11-26] MEDS: ATENOLOL 100 MG TAB PO SCH (21:00)
[2018-11-26] MEDS: LISINOPRIL 20 MG TAB PO SCH (21:00)
[2018-11-26] MEDS: CITALOPRAM HYDROBROMIDE 20 MG TAB PO SCH (21:00)
[2018-11-26] MEDS: CLONIDINE HCL 0.2 MG TAB PO SCH (21:00)
[2018-11-27] VITALS (21 sets, daily range): BP systolic 124–163; BP diastolic 51–75
[2018-11-27] MEDS: SODIUM CHLORIDE 0.9% 1000ML 1,000 ML IV SCH ×3 (05:14→20:39)
[2018-11-27] MEDS: PIPERACILLIN/TAZO 2.25 GM 50 ML IV SCH ×3 (05:22→20:39)
[2018-11-27 05:24] LABS: HEMOGLOBIN 11.6 g/dL (12.0-16.0)
[2018-11-27] MEDS ORDERED: CHLORASEPTIC SPRAY 177 ML BTL MM PRN (05:30)
--- NOTE | 2018-11-27 05:52 | Diagnostic Imaging Report ---
Abdomen/KUB INDICATION: ^VOMITING ^[id number] ^0525 COMPARISON: CT abdomen/pelvis 11/22/2018. FINDINGS: Portable, supine image obtained at 0536 hours. Medical Devices: Nasogastric tube is looped in the distal stomach with the tip in the fundus. Cholecystectomy clips are present. Bowel: Large amount of stool in the right colon. Small bowel loops are distended measuring up to 3 cm in diameter. No pneumatosis Free air: None Calcifications: None over the renal shadows or along the expected course of the ureters Organomegaly: None Lung bases: Bibasilar atelectasis Bones: Dynamic compression screws through the proximal left femur are intact IMPRESSION: Large stool burden. Distended small bowel loops suggestive of ileus or partial small bowel obstruction. Signed by: Dr. Esther Vernon MD on 11/27/2018 5:48 AM
--- NOTE | 2018-11-27 05:58 | Diagnostic Imaging Report ---
EXAMINATION: CHEST SINGLE (PORTABLE) COMPARISON: CT chest 11/22/2018 INDICATION: ^VOMITING ^[id number] ^0525 DISCUSSION: Frontal view of the chest obtained at 0536 hours. HEART AND MEDIASTINUM: Stable cardiomegaly. Tortuous aorta LINES: Enteric tube extends past the diaphragm and is looped in the distal stomach with the tip oriented towards the fundus LUNGS: Right infrahilar airspace opacity. No new findings in the left lung. PLEURA: No pleural effusion or pneumothorax. BONES AND SOFT TISSUES: No focal osseous lesion. There are surgical clips in the left axilla. IMPRESSION: Right infrahilar airspace opacity may represent atelectasis or infiltrate. Stable cardiomegaly. No evidence of CHF. Signed by: Dr. Esther Vernon MD on 11/27/2018 5:55 AM
[2018-11-27] MEDS: ACETAMINOPHEN 1000 MG/100 ML IV SCH ×3 (06:17→12:39)
[2018-11-27 07:04] LABS: ALBUMIN 2.2 g/dL (3.5-5.0); ALBUMIN/GLOBULIN RATIO 0.6 (0.8-2.0)
[2018-11-27 07:13] LABS: BASOPHILS # (AUTO) 0.1 (0.0-0.1); BASOPHILS % 0.5 % (0.0-1.0); EOSINOPHILS % 0.1 % (0.0-6.0); HEMOGLOBIN 11.6 g/dL (12.0-16.0); LYMPHOCYTES # (AUTO) 0.6 (1.0-3.2); LYMPHOCYTES % 5.1 % (18.0-39.1); MEAN CORPUSCULAR HEMOGLOBIN 30.5 pg (28-32); MEAN CORPUSCULAR HGB CONC 32.2 g/dL (31-35); MEAN CORPUSCULAR VOLUME 94.7 fL (81-99); MONOCYTES # (AUTO) 0.7 (0.2-0.8); NEUTROPHILS # (AUTO) 10.6 (2.1-6.9); PLATELET COUNT 183 x10e3/uL (140-360); RED CELL DISTRIBUTION WIDTH 14.4 % (11.7-14.4)
[2018-11-27] MEDS: PANTOPRAZOLE SOD 40 MG TABEC PO SCH ×2 (07:30→16:30)
[2018-11-27] MEDS: INSULIN LISPRO 100 UNIT/1 ML 3ML VIAL SQ SCH ×4 (07:30→20:39)
[2018-11-27 07:34] LABS: CALCIUM 7.5 mg/dL (8.4-10.2); CREATININE, SERUM 2.87 mg/dL (0.57-1.11)
--- NOTE | 2018-11-27 07:54 | NUR ---
RECEIVED SNF ORDER FOR THIS PT WILL FOLLOW UP TO SEE IF STILL ACTIVE AND QUALIFIES
[2018-11-27] MEDS ORDERED: RIVAROXABAN 10 MG TABLET PO SCH (08:00)
--- NOTE | 2018-11-27 08:03 | NUR ---
PAGED FOR NEW CONSULT, SPOKE TO REPORTED KUB RESULTS AND LAB VALUES. RECEIVED ORDERS.
--- NOTE | 2018-11-27 08:09 | NUR ---
PAGED FOR NEW CONSULT.
[2018-11-27] MEDS: POTASSIUM CHLORIDE 20 MEQ TAB CR PO SCH (08:10)
[2018-11-27] MEDS ORDERED: MAGNESIUM SULFATE 2GM/50ML 50 ML IV ONE (08:30)
[2018-11-27] MEDS: RIVAROXABAN 10 MG TABLET PO SCH (08:55)
[2018-11-27] MEDS: BISACODYL 5 MG TAB EC PO SCH ×3 (12:00→20:40)
[2018-11-27] MEDS: BISACODYL 10 MG SUPP PR PRN (12:04)
[2018-11-27 12:28] LABS: BAND NEUTROPHILS % (MANUAL) 2 %; LYMPHOCYTES % (MANUAL) 10 % (19-48); NEUTROPHILS % (MANUAL) 88 % (40-74)
[2018-11-27 12:31] LABS: HYPOCHROMASIA SLIGHT; PLATELET ESTIMATE ADEQUATE; PLATELET MORPHOLOGY COMMENT NORMAL; RBC MORPHOLOGY COMMENT NORMAL
--- NOTE | 2018-11-27 13:02 | NUR ---
WOUND CARE PUP SCREEN STATUS: S/P Compression Fracture Left Hip with Operative Intervention. Pablo Score =11 Strict PUP Active LOS=4 days Age= 83 Alternating Pressure Air Mattress to Current Weight HOB < / = 30 Degrees Blanchable Redness to Bilateral Heels. Foot Pumps in Place. Patient Position: Left, Pillow Assist. PATIENT VISIT / SKIN CHECK: No Pressure Ulcers Identified. RECOMMENDATION: - Continue Alternating Pressure Air Mattress - Bilateral Heel Protectors / Offload Heels with Pillows while in Bed. - Continue to Turn and Reposition Every 2 Hours - Continue HOB < or = to 30 Degrees. - Continue Strict PUP Protocol Addendum: 11/27/18 at 1306 by Keith Thomas RN Amended: Links added.
--- NOTE | 2018-11-27 13:54 | Consultation ---
DATE OF CONSULTATION: 11/26/2018 REASON FOR CONSULTATION: Arrhythmia. CONSULTING PHYSICIAN: Dr. Guzman. HISTORY OF PRESENT ILLNESS: This is a pleasant 83-year-old female, who presented status post fall. According to the patient and daughter at the bedside, she was getting out of the bathroom when she accidentally fell sustaining pain to the left side of the hip. In the emergency room, she had an ultrasound done that showed left hip fracture. In 2013, she had history of AFib and was not treated with any anticoagulation. According to the daughter, she had low potassium, had AFib and it went away. She is independent and lives at home with grandson and she drives. She is status post left hip surgery and doing good. She was found with low hemoglobin and received 2 units of PRBC and ileus also. She is n.p.o. with NG tube to low suction. She also had low potassium and low magnesium, which has been replaced. She denied any chest pain, any palpitation, any diaphoresis, any headache, nausea, or vomiting. Troponin was negative. EKG showed incomplete right bundle-branch block and in and out of paroxysmal AFib. PAST MEDICAL HISTORY: Paroxysmal AFib, hypertension, diabetes, uterine cancer, GERD, reflux, chronic insomnia. PAST SURGICAL HISTORY: Hysterectomy, cholecystectomy. FAMILY HISTORY: Positive for CAD. SOCIAL HISTORY: No smoking. No drinking. She lives at home with grandson. MEDICATIONS: See med list. ALLERGIES: SHE IS NOT ALLERGIC TO ANY MEDICATION. REVIEW OF SYSTEMS: Negative except those mentioned above. PHYSICAL EXAMINATION: VITAL SIGNS: Temperature 98.1, heart rate 102, blood pressure 124/51, respirations 12, oxygen saturation 98% on 2 L nasal cannula. GENERAL: She is awake, alert, and oriented x3. HEENT: Mucous membrane dry. NECK: Supple. LUNGS: Bilateral clear to auscultation. CARDIOVASCULAR: Irregular. S1, S2 present. ABDOMEN: Soft. NEUROLOGICAL: Intact. EXTREMITIES: With no edema. LABS: Sodium 138, potassium 4.1, chloride 105, CO2 of 20, BUN 45, creatinine 2.87, glucose 136. White blood cell 12.0, hemoglobin 11.6, hematocrit 36.0, platelets 183. PT 13.6, PTT 31.5, INR 0.99. IMPRESSION: 1. Fall. 2. Status post hip replacement surgery. 3. Paroxysmal atrial fibrillation and incomplete right bundle-branch block. 4. Ileus. 5. Low potassium. 6. Low magnesium. 7. Hypertension. 8. Diabetes. 9. Anemia. PLAN: 1. Magnesium and potassium have been replaced. 2. We will go ahead and get an echocardiogram to asses the LV and the valve function. 3. We will check TSH and hemoglobin A1c. 4. She is n.p.o. with NG tube to suction. 5. She is status post hip surgery. 6. Possible p.o. anticoagulation if okay with surgeon. Further cardiac workup pending clinical course. Thank you for this consultation. Dictated by Mimi Albright NP MD BETTYE Riley/PAN /[id number]
[2018-11-27] MEDS: MINERAL OIL 132 ML BTL PR PRN (14:27)
[2018-11-27] MEDS: METOPROLOL TARTRATE INJ 1 MG/ML VIAL IV PRN (15:06)
--- NOTE | 2018-11-27 15:14 | NUR ---
FLEET ENEMA GIVEN, SMALL SIZED STOOL NOTED AFTER.
[2018-11-27] MEDS: HYDRALAZINE HCL 20 MG/ML VIAL IV PRN (18:15)
[2018-11-27] MEDS: LISINOPRIL 20 MG TAB PO SCH (20:39)
[2018-11-27] MEDS: ATENOLOL 100 MG TAB PO SCH (20:39)
[2018-11-27] MEDS: ZOLPIDEM TARTRATE 10 MG TAB PO SCH (20:39)
[2018-11-27] MEDS: CLONIDINE HCL 0.2 MG TAB PO SCH (20:39)
[2018-11-27] MEDS: CITALOPRAM HYDROBROMIDE 20 MG TAB PO SCH (20:39)
--- NOTE | 2018-11-27 23:37 | Consultation ---
DATE OF CONSULTATION: 11/24/2018 REASON FOR CONSULTATION: Fever. HISTORY OF PRESENT ILLNESS: This patient was seen on November 24, 2018. Seen and examined. Chart reviewed. However, during an audit, it was found that there was no consult done. The patient who is well-known to me, she does have history of hypertension, history of diabetes mellitus. She had history of fever before, which we did full workup on her a year ago, came back negative. The patient is coming now after a fall sustaining a left humeral fracture. The patient apparently was in usual state of health. She was getting into the bathroom, she sat down on the commode, she got up and then fell, sustained a fracture. The patient came to the Emergency Room where she was being evaluated and they have plan for her to have surgery. The patient was admitted. PAST MEDICAL HISTORY: Hypertension, diabetes mellitus, reflux esophagitis, insomnia, and endometrial cancer. PAST SURGICAL HISTORY: Hysterectomy and cholecystectomy. ALLERGIES: NKA. SOCIAL HISTORY: There is no smoking, drug abuse, or alcohol abuse. FAMILY HISTORY: Hypertension. REVIEW OF SYSTEMS: HEENT: There is no headache, visual changes, or hearing changes. GI: There is no nausea, no vomiting, no diarrhea. CARDIAC: There is no arrhythmia or chest pain. NEURO: No focal weakness. No seizure activity. SKIN: There are no other rashes. JOINT: No erythema or edema. The patient was admitted with diagnosis of right hip fracture. Orthopedic was consulted, Dr. Hdz. The patient is also known to have hypokalemia and hypomagnesemia, which were also corrected. The patient was noted to have fever and Infectious Disease was consulted. When I saw the patient on November 24, she was lying in bed comfortably. Family at the bedside. No complaints and her physical examination as mentioned above was totally normal except for the pain in the right hip. LABORATORY DATA: Reviewed her laboratory data. Since admission, all reviewed. IMPRESSION AND PLAN: Fever. As the patient had fever before, I was concerned at one point if she has collagen disease, fever. I would recommend to obtain a sedimentation rate, C-reactive protein, SANJUANA, rheumatoid factor. Observe the patient clinically. From Infectious Disease point of view, can proceed with surgery. I will recheck. If she spikes fever again, we will get the blood cultures. Discussed with the patient, answered all her questions. Time spent 60 minutes reviewing records and talking with the patient and discussing with Internal Medicine. Thank you for asking me to see this patient. MD KENN Gayle/PAN /[id number]
[2018-11-28] VITALS (24 sets, daily range): BP systolic 144–189; BP diastolic 50–98
[2018-11-28] MEDS: PIPERACILLIN/TAZO 2.25 GM 50 ML IV SCH (04:25)
[2018-11-28] MEDS: HYDRALAZINE HCL 20 MG/ML VIAL IV PRN ×3 (04:54→13:09)
[2018-11-28 05:10] LABS: BASOPHILS # (AUTO) 0.1 (0.0-0.1); BASOPHILS % 0.5 % (0.0-1.0); EOSINOPHILS % 0.2 % (0.0-6.0); HEMATOCRIT 34.5 % (34.2-44.1); HEMOGLOBIN 11.3 g/dL (12.0-16.0); LYMPHOCYTES # (AUTO) 0.7 (1.0-3.2); LYMPHOCYTES % 3.5 % (18.0-39.1); MEAN CORPUSCULAR HEMOGLOBIN 30.6 pg (28-32); MEAN CORPUSCULAR HGB CONC 32.8 g/dL (31-35); MEAN CORPUSCULAR VOLUME 93.5 fL (81-99); MONOCYTES # (AUTO) 1.1 (0.2-0.8); MONOCYTES % 5.4 % (4.4-11.3); NEUTROPHILS # (AUTO) 17.2 (2.1-6.9); PLATELET COUNT 199 x10e3/uL (140-360); RED BLOOD COUNT 3.69 x10e6/uL (3.6-5.1); RED CELL DISTRIBUTION WIDTH 14.5 % (11.7-14.4)
[2018-11-28] MEDS: SODIUM CHLORIDE 0.9% 1000ML 1,000 ML IV SCH ×2 (05:13→20:52)
[2018-11-28 05:30] LABS: ANION GAP 18.1 mmol/L (8-16); CALCIUM 7.9 mg/dL (8.4-10.2); CREATININE, SERUM 1.91 mg/dL (0.57-1.11); MAGNESIUM 1.6 MG/DL (1.3-2.1); POTASSIUM 3.1 mmol/L (3.5-5.1)
[2018-11-28] MEDS: ACETAMINOPHEN 1000 MG/100 ML IV PRN ×2 (06:19→14:22)
[2018-11-28] MEDS ORDERED: POTASSIUM CHLORIDE 20MEQ/100ML 200 ML IV ONE (06:30)
[2018-11-28] MEDS: INSULIN LISPRO 100 UNIT/1 ML 3ML VIAL SQ SCH ×4 (07:30→20:51)
[2018-11-28] MEDS: PANTOPRAZOLE SOD 40 MG TABEC PO SCH ×2 (07:30→16:30)
[2018-11-28] MEDS: POTASSIUM CHLORIDE 20MEQ/100ML 100 ML IV SCH ×2 (07:59→14:21)
--- NOTE | 2018-11-28 07:59 | Diagnostic Imaging Report ---
EXAMINATION: CHEST SINGLE (PORTABLE) INDICATION: Newly developed bronchi. COMPARISON: Chest radiograph 11/27/2018. FINDINGS: TUBES and LINES: Enteric tube loops and terminates at the gastric fundus. LUNGS: There are moderate lung volumes. There are increasing patchy opacities in the right lower lung. There are new patchy opacities in the right upper lung. Interval development of mild right greater than left interstitial opacities. PLEURA: No pleural effusion or pneumothorax. HEART AND MEDIASTINUM: The cardiomediastinal silhouette is mildly enlarged. The aorta is ectatic. BONES AND SOFT TISSUES: No acute osseous abnormality. UPPER ABDOMEN: No free air under the diaphragm. IMPRESSION: Increasing multifocal opacities in the right lung, suspicious for multifocal pneumonia. Possible mild superimposed pulmonary interstitial edema. Signed by: Dr. Jalen Coles MD on 11/28/2018 7:56 AM
[2018-11-28] MEDS: POTASSIUM CHLORIDE 20 MEQ TAB CR PO SCH (08:00)
[2018-11-28] MEDS: BISACODYL 10 MG SUPP PR PRN (08:00)
--- NOTE | 2018-11-28 08:04 | Diagnostic Imaging Report ---
KUB-portable supine INDICATION: Ileus. COMPARISON: CT abdomen/pelvis 11/22/2018, KUB 11/27/2018 FINDINGS: Enteric tube is looped in the distal stomach with the tip in the fundus. Cholecystectomy clips are present. Large amount of stool in the right colon. Persistent mildly dilated small bowel loops. Air is seen within nondistended colonic loops. No evidence of pneumatosis or free air. No evidence of abnormal calcification. Please refer to the concurrently performed chest radiograph for details of intrathoracic findings. No acute osseous abnormality. Status post ORIF of the left proximal femur with partially threaded screws. IMPRESSION: Similar appearance of mildly dilated small bowel loops with air seen in nondilated colonic loops. Findings may represent nonobstructive ileus or partial small bowel obstruction. Large amount of stool in the proximal colon. Signed by: Dr. Jalen Coles MD on 11/28/2018 8:00 AM
[2018-11-28] MEDS ORDERED: DIATRIZOATE MEGL/DIATRIZOA SOD 30 ML BTL PO ONE (09:07)
[2018-11-28 11:56] LABS: AMYLASE 250 U/L (25-125); LIPASE 11 U/L (8-78)
[2018-11-28] MEDS: BISACODYL 5 MG TAB EC PO SCH ×2 (12:00→17:39)
--- NOTE | 2018-11-28 12:01 | Diagnostic Imaging Report ---
EXAM: CT Abdomen and Pelvis WITHOUT contrast INDICATION: Possible small bowel obstruction on KUB. COMPARISON: KUB 11/28/2018. CT chest without contrast 11/22/2018. TECHNIQUE: Abdomen and pelvis were scanned utilizing a multidetector helical scanner from the lung base to the pubic symphysis without administration of IV contrast. Absence of intravenous contrast decreases sensitivity for detection of focal lesions and vascular pathology. Coronal and sagittal reformations were obtained. Routine protocol was performed. IV CONTRAST: None. ORAL CONTRAST: Gastrografin RADIATION DOSE: Total DLP: 307.5 mGy*cm Dose modulation, iterative reconstruction, and/or weight based adjustment of the mA/kV was utilized to reduce the radiation dose to as low as reasonably achievable. FINDINGS: LINES and TUBES: Enteric tube curls in the stomach, and the tip terminates in the gastric fundus. LOWER THORAX: There is patchy consolidation in the bilateral lower lobes and right middle lobe. Coronary atherosclerosis. HEPATOBILIARY: No focal hepatic lesions. No biliary ductal dilation. Status post cholecystectomy. SPLEEN: No splenomegaly. PANCREAS: Limited evaluation in the absence of contrast without definite abnormality. ADRENALS: No adrenal nodules KIDNEYS/URETERS: No hydronephrosis. No evidence of solid mass. No stones. Nonspecific bilateral perinephric stranding. Simple appearing right-sided renal cysts, measuring up to 3.1 cm. GI TRACT: No abnormal distention, wall thickening, or evidence of bowel obstruction. Moderate amount of stool in the proximal colon. Appendix is normal. PELVIC ORGANS/BLADDER: He catheter terminates in a partially decompressed bladder. Air within the bladder likely reflects instrumentation. LYMPH NODES: No lymphadenopathy. VESSELS: Unremarkable. PERITONEUM / RETROPERITONEUM: No free air or fluid. BONES: Grade 1 anterolisthesis of L4 on L5. No evidence of acute fracture. No suspicious lytic or blastic lesions. Status post ORIF of the left proximal femur with associated streak artifact. IMPRESSION: No evidence of bowel obstruction. Moderate amount of stool in the proximal colon. Patchy consolidation in the bilateral lower lobes and right middle lobe, suspicious for multifocal pneumonia. Signed by: Dr. Jalen Coles MD on 11/28/2018 11:57 AM
--- NOTE | 2018-11-28 12:02 | NUR ---
Nutrition Intervention Note RD Recommendation(s) for Physician: Consider PN if unable to initiate a PO diet within 48hrs. Plan of Care: RD following, monitoring for tolerance and adequacy Nutrition reason for involvement: LOS RD Assessment Initial encounter with patient. Patient with a post op ileus/SBO/fecal impaction with an NGT to suction and awaiting a CT scan with contrast. 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 Pt describes herself as a small eater that eats 5-6 meals a day. Daughter present at bedside who is a staff research associate at [employer]. Pt denies any difficulty chewing or swallowing. Denies any wt changes. Principal Problems/Diagnoses: Fall Hip Fx PMH: HTN, T2DM, cholecystectomy IVF: NS at 50ml/hr GI:NGT output noted Skin: surgical incision Labs: (11/28) lab results reviewed Meds: (11/28)MAR reviewed Malnutrition Evaluation (11/28/2018) The patient does not meet criteria for a specified degree of malnutrition at this time. Will re-evaluate at follow-up as appropriate. Diet Education Needs Assessment: Diet education not indicated. Ht:59 Wt:115lbs BMI:23.2kg/m2 IBW:95lbs Estimated Nutritional Needs: 1306 kcals at 25 kcals/kg/bw 53-63g of protein 1-1.2g/kg/bw Nutrition Prescription (Diet Order): NPO Food Allergies: No known food allergies Diet Adequacy: NPO Nutrition Care Level: High Nutrition Diagnosis: Altered GI function related to post op ileus as evidenced by KUB Goal:Patient will meet 75-100% of estimated needs by follow up Progress: Not Progressing Interventions: Composition, Rate, Route, IVF, Prescription medications Monitoring/Evaluation: Total energy intake, Total protein intake, Formula/Solution, IVF, Prescription medication, Weight change, Michele Neil RD, LD, CNSC
--- NOTE | 2018-11-28 12:30 | NUR ---
RN SPOKE TO AL WITH NOTIFIED OF CT RESULTS, PA STATES HE WILL CALL BACK.
[2018-11-28] MEDS: METOPROLOL TARTRATE INJ 1 MG/ML VIAL IV PRN (14:12)
--- NOTE | 2018-11-28 15:30 | NUR ---
JANET GUZMAN CALLED BACK REGARDING CT RESULTS, LEFT VM.
--- NOTE | 2018-11-28 15:36 | Consultation ---
DATE OF CONSULTATION: 11/28/2018 HISTORY OF PRESENT ILLNESS: This is an 83-year-old, who presented to the hospital initially because of hip fracture, she underwent surgery, however. She apparently has developed increasing abdominal distention. Her workup with the abdominal x-rays show a possibility of nonobstructive ileus or partial small bowel obstruction with large amount of stool in the proximal colon. She has a history of hysterectomy because of endometrial cancer in the past. An NG tube has been placed so far. PAST MEDICAL HISTORY: Her other medical problems significant for history of diabetes, history of reflux, history of chronic insomnia, endometrial cancer status post hysterectomy and cholecystectomy. MEDICATIONS: At home include atenolol, chlorthalidone, citalopram, dicyclomine, omeprazole, potassium, tramadol, zolpidem. ALLERGIES: NONE. SOCIAL HISTORY: There is no alcohol use. FAMILY HISTORY: Noncontributory. REVIEW OF SYSTEMS: At this point, she denies any chest pain. Denies any shortness of breath. Denies any dysphagia or odynophagia. Denies any dysuria, hematuria, or any kind of syncopal episode. PHYSICAL EXAMINATION: GENERAL: The patient is awake, alert, appears to be stable. VITAL SIGNS: Afebrile currently. HEENT: Head is normocephalic, atraumatic. Sclerae are anicteric. NECK: Supple. HEART: Regular. ABDOMEN: Soft, somewhat distended. Hypoactive bowel sounds. There is no rebound or mass. EXTREMITIES: Demonstrates no clubbing. LABORATORY DATA: As of today, white blood cells 19.56, hemoglobin of 11.3. Potassium 3.1, BUN 43, creatinine of 1.91. IMPRESSION: 1. Abdominal distention, possible either ileus or small bowel obstruction. 2. History of hip fracture, status post surgery. 3. History of diabetes and hypertension. RECOMMENDATION: Keep n.p.o. for now. NG tube to low intermittent suction. We will obtain a CT scan with oral contrast only to rule out possibility of small-bowel obstruction. Follow clinically. MD EMILIE Gonzalez/PAN /[id number] cc: Seamus Guzman MD
--- NOTE | 2018-11-28 17:00 | NUR ---
DUCKWORTH REMOVED. DIAPER PLACED
[2018-11-28] MEDS: RIVAROXABAN 10 MG TABLET PO SCH (17:38)
--- NOTE | 2018-11-28 17:53 | NUR ---
500 GASTRIC CONTENT NOTED, PT HAS BEEN HAVING ICE CHIPS ALL DAY.
--- NOTE | 2018-11-28 18:32 | Operative Report ---
DATE OF PROCEDURE: 11/26/2018 SURGEON: Adelso Hdz MD PREOPERATIVE DIAGNOSIS: Left hip valgus impacted femoral neck fracture. POSTOPERATIVE DIAGNOSIS: Left hip valgus impacted femoral neck fracture. OPERATION/PROCEDURE PERFORMED: The patient underwent a closed reduction and percutaneous screw fixation of the left femoral neck fracture. LIFT MECHANIC: Dolores Nash. ANESTHESIA: General endotracheal intubation anesthesia. IV FLUIDS: Per the anesthesia record. BRIEF DISCUSSION OF THE PATIENT'S OPERATIVE PROCEDURE: Ms. Bass was taken the operating room, placed in supine position on the operating table. Following induction of general anesthesia as well as endotracheal intubation, the patient's left lower extremity is placed in a well-padded longitudinal traction and the right lower extremity was placed in a well-padded lithotomy position. Fluoroscopic evaluation of the left hip joint demonstrated a valgus impacted femoral neck fracture. The patient's leg was manipulated under anesthesia and traction and this resulted in anatomic realignment of the patient's femoral neck injury. The patient's lower extremities prepped and draped in standard surgical fashion. An incision was created over the lateral hip. This incision was carried through skin only. Blunt dissection used to deepen the incision to the level of the lateral aspect of the femur. Three pins from the 7.3 cannulated screw system were inserted from lateral to medial through the neck into the head of the femur. The position of the stents was checked using fluoroscopy. Measurements were taken and three 7.3 cannulated screws were then inserted across the patient's fracture site. The patient's position of the screws as well as reduction of fracture was again assessed using fluoroscopy and found to be appropriate. The wound was copiously irrigated. The wound was closed in a multilayer fashion. Sterile dressings were applied. The patient was then awakened, taken to postanesthesia care in stable condition. Dolores Nash acted as 1st orthotic assistant for this case, was necessary for both prepping and draping the patient as well as the retraction of soft tissues, that allowed this case to be successful. Adelso Hdz MD EBR/MODL /[id number]
--- NOTE | 2018-11-28 19:00 | NUR ---
Bedside report received from Virginia PANDEY. Pt resting in bed with eyes closed, awakes and opens eyes to voice, pts daughter at the bedside, care plan reviewed at this time. Virginia PANDEY refilled SPORTS BOOKMAKER medication at this time and we checked SPORTS BOOKMAKER together (refer to paper documentation in pts chart: Pain management medication administration record and nursing flow sheet). Pt reports no pain to her left hip at this time but does report mild tenderness to her left nare where she has a NGT placed per md orders, site assessed at this time and is wdp. Pt call light within reach, bed in lowest and locked position, family to remain at the bedside. Addendum: 11/28/18 at 2102 by Mariama Starks RN Amended: Links added.
[2018-11-28] MEDS: ZOLPIDEM TARTRATE 10 MG TAB PO SCH (20:10)
[2018-11-28] MEDS: CITALOPRAM HYDROBROMIDE 20 MG TAB PO SCH (20:10)
[2018-11-28] MEDS: CLONIDINE HCL 0.2 MG TAB PO SCH (20:10)
[2018-11-28] MEDS: ATENOLOL 100 MG TAB PO SCH (20:11)
[2018-11-28] MEDS: LISINOPRIL 20 MG TAB PO SCH (20:11)
--- NOTE | 2018-11-28 22:15 | NUR ---
Bedside report given to Krupa Baez RN.
--- NOTE | 2018-11-28 22:30 | NUR ---
Assumed care. Assessment unchanged from earlier assessment. Dilaudid CAR RESTORER for pain control and NS @ 50ml/hr.
[2018-11-29] VITALS (36 sets, daily range): BP systolic 161–202; BP diastolic 55–115
--- NOTE | 2018-11-29 | NUR ---
Refused fingerstick blood sugar.
[2018-11-29] MEDS: HYDRALAZINE HCL 20 MG/ML VIAL IV PRN ×6 (00:20→22:11)
--- NOTE | 2018-11-29 05:00 | NUR ---
More alert now. Able to answer all neuro questions. Dr. Guzman here. Awaiting lab results. Addendum: 11/29/18 at 0545 by Loni Arevalo RN Error wrong chart
--- NOTE | 2018-11-29 05:00 | NUR ---
Dr. Guzman here. Pt has been unable to void. Bladder scan done. 492ml urine in bladder. Was going to straight cath but pt was able to void approx 300ml.
[2018-11-29] MEDS: BISACODYL 5 MG TAB EC PO SCH ×4 (05:04→17:15)
[2018-11-29 06:06] LABS: BASOPHILS # (AUTO) 0.1 (0.0-0.1); BASOPHILS % 0.4 % (0.0-1.0); EOSINOPHILS # (AUTO) 0.1 (0.0-0.4); EOSINOPHILS % 0.3 % (0.0-6.0); HEMATOCRIT 31.6 % (34.2-44.1); HEMOGLOBIN 10.7 g/dL (12.0-16.0); LYMPHOCYTES # (AUTO) 0.9 (1.0-3.2); LYMPHOCYTES % 4.2 % (18.0-39.1); MEAN CORPUSCULAR HEMOGLOBIN 30.8 pg (28-32); MEAN CORPUSCULAR HGB CONC 33.9 g/dL (31-35); MEAN CORPUSCULAR VOLUME 91.1 fL (81-99); MONOCYTES # (AUTO) 1.1 (0.2-0.8); MONOCYTES % 4.7 % (4.4-11.3); NEUTROPHILS # (AUTO) 18.5 (2.1-6.9); PLATELET COUNT 227 x10e3/uL (140-360); RED BLOOD COUNT 3.47 x10e6/uL (3.6-5.1); RED CELL DISTRIBUTION WIDTH 14.6 % (11.7-14.4)
[2018-11-29 06:24] LABS: CALCIUM 8.9 mg/dL (8.4-10.2); CREATININE, SERUM 1.57 mg/dL (0.57-1.11)
[2018-11-29] MEDS: INSULIN LISPRO 100 UNIT/1 ML 3ML VIAL SQ SCH ×4 (07:30→21:00)
[2018-11-29] MEDS: PANTOPRAZOLE SOD 40 MG TABEC PO SCH ×2 (07:30→17:15)
[2018-11-29] MEDS: POTASSIUM CHLORIDE 20 MEQ TAB CR PO SCH (08:15)
[2018-11-29] MEDS: ATENOLOL 100 MG TAB PO SCH ×2 (08:15→21:40)
[2018-11-29] MEDS ORDERED: POTASSIUM CHLORIDE 20MEQ/100ML 100 ML IV ONE (08:30)
[2018-11-29] MEDS ORDERED: POTASSIUM CHLORIDE 20MEQ/100ML 200 ML IV ONE (08:30)
--- NOTE | 2018-11-29 09:19 | NUR ---
updated Dr. Guzman with patient am labs and ID plan of care. no new orders. notified Audra LANG of elevated bp 200/62.administered iv prn hydralizine. new orders received to give po atenolol now (scheduled at 2100) and can give prn hydralize q2hrs instead of Q4hrs. pt c/o ngt bothering her throat. denies any pain at this time. 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 Addendum: 11/29/18 at 0922 by Korin Carter RN also new order from cardiology to give iv kcl 20meq along with po potassium.
--- NOTE | 2018-11-29 10:49 | NUR ---
patient does not want blood glucose accuchecks taken. pt states her blood glucose has been controlled for over 2 years now. she does not follow up with them at home daily either. pt educated on blood glucose accuchecks. will notify staff if she feels symptomatic. reviewed s/s hypoglycemia with patient and daughter.
[2018-11-29 14:08] LABS: BAND NEUTROPHILS % (MANUAL) 3 %; LYMPHOCYTES % (MANUAL) 1 % (19-48); METAMYELOCYTES % (MANUAL) 2 % (0-0); MONOCYTES % (MANUAL) 6 % (3.4-9.0); MYELOCYTES % (MANUAL) 2 % (0-0); NEUTROPHILS % (MANUAL) 86 % (40-74); PLATELET MORPHOLOGY COMMENT NORMAL; RBC MORPHOLOGY COMMENT NORMAL
[2018-11-29 14:09] LABS: HYPOCHROMASIA SLIGHT; PLATELET ESTIMATE ADEQUATE
[2018-11-29] MEDS: RIVAROXABAN 10 MG TABLET PO SCH (17:15)
[2018-11-29] MEDS: HYDRALAZINE HCL 25 MG TAB PO SCH (17:15)
[2018-11-29] MEDS: SODIUM CHLORIDE 0.9% 1000ML 1,000 ML IV SCH (21:32)
[2018-11-29] MEDS: ZOLPIDEM TARTRATE 10 MG TAB PO SCH (21:40)
[2018-11-29] MEDS: CITALOPRAM HYDROBROMIDE 20 MG TAB PO SCH (21:40)
[2018-11-29] MEDS: ACETAMINOPHEN 325 MG TAB PO PRN (22:23)
[2018-11-30] VITALS (22 sets, daily range): BP systolic 145–197; BP diastolic 57–93
[2018-11-30] MEDS: HYDRALAZINE HCL 20 MG/ML VIAL IV PRN ×3 (00:34→18:54)
[2018-11-30] MEDS: BISACODYL 5 MG TAB EC PO SCH ×3 (00:34→12:00)
[2018-11-30 05:33] LABS: BASOPHILS # (AUTO) 0.1 (0.0-0.1); BASOPHILS % 0.4 % (0.0-1.0); EOSINOPHILS # (AUTO) 0.2 (0.0-0.4); EOSINOPHILS % 0.7 % (0.0-6.0); HEMATOCRIT 30.8 % (34.2-44.1); HEMOGLOBIN 10.1 g/dL (12.0-16.0); LYMPHOCYTES # (AUTO) 1.2 (1.0-3.2); LYMPHOCYTES % 5.8 % (18.0-39.1); MEAN CORPUSCULAR HEMOGLOBIN 30.2 pg (28-32); MEAN CORPUSCULAR HGB CONC 32.8 g/dL (31-35); MEAN CORPUSCULAR VOLUME 92.2 fL (81-99); MONOCYTES # (AUTO) 1.1 (0.2-0.8); MONOCYTES % 5.2 % (4.4-11.3); NEUTROPHILS # (AUTO) 18.5 (2.1-6.9); PLATELET COUNT 208 x10e3/uL (140-360); RED BLOOD COUNT 3.34 x10e6/uL (3.6-5.1); RED CELL DISTRIBUTION WIDTH 14.7 % (11.7-14.4)
[2018-11-30 06:09] LABS: ANION GAP 15.4 mmol/L (8-16); CALCIUM 9.1 mg/dL (8.4-10.2); CREATININE, SERUM 1.28 mg/dL (0.57-1.11)
[2018-11-30 06:13] LABS: POTASSIUM 2.4 mmol/L (3.5-5.1)
--- NOTE | 2018-11-30 06:17 | NUR ---
Notified Dr. Guzman of critical potassium level. New orders received.
[2018-11-30] MEDS ORDERED: POTASSIUM CHLORIDE 20MEQ/100ML 400 ML IV ONE (06:18)
[2018-11-30] MEDS: POTASSIUM CHLORIDE 20MEQ/100ML 100 ML IV SCH ×5 (07:00→14:00)
--- NOTE | 2018-11-30 07:07 | Diagnostic Imaging Report ---
Abdomen/KUB INDICATION: ^ILEUS COMPARISON: CT abdomen 11/28/2018. FINDINGS: Portable, supine image obtained at 0645 hours. Medical Devices: Enteric tube is looped in the proximal stomach with the tip at the cardia. Cholecystectomy clips are present. Cancellous screws in the proximal left femur Bowel: No dilated small bowel loops. Gaseous distention of the right colon and transverse colon is redemonstrated with the presence of enteric contrast in the right colon. No pneumatosis. Free air: None Calcifications: None Organomegaly: None Lung bases: Clear Bones: Stable degenerative changes of the lumbar spine. IMPRESSION: Gaseous distention of the large bowel. No evidence of small bowel obstruction. Signed by: Dr. Esther Vernon MD on 11/30/2018 7:04 AM
[2018-11-30] MEDS: INSULIN LISPRO 100 UNIT/1 ML 3ML VIAL SQ SCH ×4 (07:30→21:00)
[2018-11-30] MEDS: PANTOPRAZOLE SOD 40 MG TABEC PO SCH ×2 (07:45→16:24)
[2018-11-30] MEDS: HYDRALAZINE HCL 25 MG TAB PO SCH ×3 (07:45→21:24)
[2018-11-30] MEDS ORDERED: HYDRALAZINE HCL 25 MG TAB PO ONE (09:45)
[2018-11-30] MEDS: POTASSIUM CHLORIDE 20 MEQ TAB CR PO SCH (09:52)
--- NOTE | 2018-11-30 09:52 | NUR ---
PATIENT REFUSING BLOOD GLUCOSE STICKS HER DIABETES IS IN REMISSION PER PT AND FAMILY. AWARE
--- NOTE | 2018-11-30 12:36 | NUR ---
Nutrition Intervention Note RD Recommendation(s) for Physician: Consider PN if unable to initiate a PO diet within 48hrs. Weigh Pt Plan of Care: RD following, monitoring for tolerance and adequacy Nutrition reason for involvement: follow up RD Assessment 11/30: NGT clamped and ileus/SBO likely resolved. Pt is ready to eat. PO diet will probably be initiated on tomorrow. Large wt increase noted - 144.[address] may need to reassess energy and protein needs after weight is confirmed. Order to transfer to the floor noted. Initial encounter with patient. Patient with a post op ileus/SBO/fecal impaction with an NGT to suction and awaiting a CT scan with contrast. 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 Pt describes herself as a small eater that eats 5-6 meals a day. Daughter present at bedside who is a staffing recruiter at [employer]. Pt denies any difficulty chewing or swallowing. Denies any wt changes. Principal Problems/Diagnoses: Fall Hip Fx PMH: HTN, T2DM, cholecystectomy IVF: NaCl at 50ml/hr, KCL at 50ml/hr GI:NGT clamped Skin: surgical incision Labs: (11/28) lab results reviewed 11/30 lab results reviewed, Meds: (11/28)MAR reviewed 11/30 MAR reviewed Malnutrition Evaluation (11/28/2018) The patient does not meet criteria for a specified degree of malnutrition at this time. Will re-evaluate at follow-up as appropriate. Diet Education Needs Assessment: Diet education not indicated. Ht:59 Wt:115lbs 11/30 144.44 BMI:23.2kg/m2 IBW:95lbs Estimated Nutritional Needs: 1306 kcals at 25 kcals/kg/bw 53-63g of protein 1-1.2g/kg/bw Nutrition Prescription (Diet Order): NPO Food Allergies: No known food allergies Diet Adequacy: NPO Nutrition Care Level: High Nutrition Diagnosis: Altered GI function related to post op ileus as evidenced by KUB Goal:Patient will meet 75-100% of estimated needs by follow up Progress: Not Progressing Interventions: Composition, Rate, Route, IVF, Prescription medications Monitoring/Evaluation: Total energy intake, Total protein intake, Formula/Solution, IVF, Prescription medication, Weight change, Michele Neil RD, LD, CNSC
[2018-11-30] MEDS: RIVAROXABAN 10 MG TABLET PO SCH (16:24)
--- NOTE | 2018-11-30 18:47 | NUR ---
call placed to concrete stone fabricator MD for GI, awaiting return call
[2018-11-30] MEDS: SODIUM CHLORIDE 0.9% 1000ML 1,000 ML IV SCH (18:54)
[2018-11-30 19:35] LABS: ANION GAP 16.6 mmol/L (8-16); CALCIUM 8.9 mg/dL (8.4-10.2); CREATININE, SERUM 1.19 mg/dL (0.57-1.11); POTASSIUM 3.6 mmol/L (3.5-5.1)
[2018-11-30] MEDS: MORPHINE SULFATE INJ 4 MG/ML INJ 1ML IV PRN (20:31)
[2018-11-30] MEDS: ZOLPIDEM TARTRATE 10 MG TAB PO SCH (21:22)
[2018-11-30] MEDS: CITALOPRAM HYDROBROMIDE 20 MG TAB PO SCH (21:24)
[2018-11-30] MEDS: ATENOLOL 100 MG TAB PO SCH (21:24)
--- NOTE | 2018-11-30 21:45 | NUR ---
Report taken from Padmini Oh.
--- NOTE | 2018-11-30 22:07 | NUR ---
Received pt from [facility] room #187 in a hospital bed.assessment done.no resp.distress.no pain voiced.iv Ns dripping @50 ml\hr.tele #[address]dressing at the left hip is open to air.bed locked and in lowest position.phone and call light within reach.instructed to call for assistance as needed.family member at bed side.
--- NOTE | 2018-11-30 22:42 | NUR ---
Report given to KATHERIN Galvez. Patient transferred to med-surg I(103) by bed @ 2200 with stable condition. Family member went with patient.
[2018-12-01] VITALS (7 sets, daily range): BP systolic 157–218; BP diastolic 69–91
--- NOTE | 2018-12-01 03:00 | NUR ---
Repositioned .had small amount of bowel movement .cleaned and put new diaper .left hip dressing changed.tolerated well.family member at bedside.
[2018-12-01] MEDS: HYDRALAZINE HCL 20 MG/ML VIAL IV PRN ×2 (03:35→16:42)
[2018-12-01 06:31] LABS: CALCIUM 8.4 mg/dL (8.4-10.2); CREATININE, SERUM 1.13 mg/dL (0.57-1.11)
--- NOTE | 2018-12-01 06:50 | NUR ---
Report given to the oncoming rn.walking rounds done.stable condition.
[2018-12-01 07:17] LABS: BASOPHILS # (AUTO) 0.1 (0.0-0.1); BASOPHILS % 0.5 % (0.0-1.0); EOSINOPHILS # (AUTO) 0.2 (0.0-0.4); EOSINOPHILS % 1.1 % (0.0-6.0); HEMOGLOBIN 9.7 g/dL (12.0-16.0); LYMPHOCYTES # (AUTO) 1.1 (1.0-3.2); LYMPHOCYTES % 6.6 % (18.0-39.1); MEAN CORPUSCULAR HEMOGLOBIN 30.2 pg (28-32); MEAN CORPUSCULAR HGB CONC 32.3 g/dL (31-35); MEAN CORPUSCULAR VOLUME 93.5 fL (81-99); MONOCYTES # (AUTO) 1.5 (0.2-0.8); MONOCYTES % 8.8 % (4.4-11.3); NEUTROPHILS # (AUTO) 12.9 (2.1-6.9); NEUTROPHILS % 77.1 % (38.7-80.0); PLATELET COUNT 212 x10e3/uL (140-360); RED BLOOD COUNT 3.21 x10e6/uL (3.6-5.1); RED CELL DISTRIBUTION WIDTH 14.6 % (11.7-14.4)
--- NOTE | 2018-12-01 07:20 | NUR ---
RECEIVED PATIENT AND WALKING ROUNDS COMPLETE. PATIENT ASLEEP AT THIS TIME, NO SIGNS OF DISTRESS. CALL LIGHT IN REACH WILL CONTINUE TO MONITOR.
[2018-12-01] MEDS: HYDRALAZINE HCL 25 MG TAB PO SCH ×3 (07:27→20:41)
[2018-12-01] MEDS: INSULIN LISPRO 100 UNIT/1 ML 3ML VIAL SQ SCH ×4 (07:30→21:00)
[2018-12-01] MEDS ORDERED: POTASSIUM CHLORIDE 20MEQ/100ML 200 ML IV ONE ×2 (08:30→11:45)
--- NOTE | 2018-12-01 09:15 | NUR ---
PATIENT A/O X3, EVEN RESPIRATIONS ON RA. BOWEL SOUNDS ACTIVE, SKIN INTACT. LEFT HIP DRESSING DRY/INTACT. LEFT UA 20 GAUGE IV WITH NS @ 100 CC/HR. DIET ADVANCED TO ADA. PATIENT IS UP WITH ASSIST, VOIDS IN BEDPAN. CALL LIGHT IN REACH, WILL CONTINUE TO MONITOR.
[2018-12-01] MEDS: POTASSIUM CHLORIDE 20 MEQ TAB CR PO SCH (09:23)
[2018-12-01] MEDS: AMLODIPINE BESYLATE 10 MG TAB PO SCH (09:23)
[2018-12-01] MEDS: PANTOPRAZOLE SOD 40 MG TABEC PO SCH ×2 (09:23→16:42)
--- NOTE | 2018-12-01 11:45 | NUR ---
SPOKE WITH DR. NAPIER. NEW ORDER FOR 40 MEQ IV POTASSIUM, REPEAT POTASSIUM LAB THIS AFTERNOON.
[2018-12-01] MEDS: SPIRONOLACTONE 25 MG TAB PO SCH (12:09)
[2018-12-01] MEDS: SODIUM CHLORIDE 0.9% 1000ML 1,000 ML IV SCH (14:21)
[2018-12-01] MEDS: MORPHINE SULFATE INJ 4 MG/ML INJ 1ML IV PRN (14:32)
[2018-12-01] MEDS: ONDANSETRON HCL 4 MG ORAL DISINTEGRATING TAB PO PRN (14:40)
[2018-12-01] MEDS: RIVAROXABAN 10 MG TABLET PO SCH (16:42)
[2018-12-01] MEDS: CITALOPRAM HYDROBROMIDE 20 MG TAB PO SCH (20:40)
[2018-12-01] MEDS: ZOLPIDEM TARTRATE 10 MG TAB PO SCH (20:40)
[2018-12-01] MEDS: ATENOLOL 100 MG TAB PO SCH (20:42)
[2018-12-02] VITALS (8 sets, daily range): BP systolic 130–189; BP diastolic 61–78
--- NOTE | 2018-12-02 00:10 | NUR ---
Repositioned.voided in the bed rojas.no pain voiced.left hip dressing site is dry.family member at bed side.bed locked and in lowest position.phone and call light within reach.requested to call for assistance as needed.
[2018-12-02 06:14] LABS: BASOPHILS # (AUTO) 0.1 (0.0-0.1); BASOPHILS % 0.7 % (0.0-1.0); EOSINOPHILS # (AUTO) 0.2 (0.0-0.4); HEMOGLOBIN 8.8 g/dL (12.0-16.0); LYMPHOCYTES # (AUTO) 1.2 (1.0-3.2); LYMPHOCYTES % 10.2 % (18.0-39.1); MEAN CORPUSCULAR HEMOGLOBIN 30.1 pg (28-32); MEAN CORPUSCULAR HGB CONC 32.6 g/dL (31-35); MEAN CORPUSCULAR VOLUME 92.5 fL (81-99); MONOCYTES # (AUTO) 1.4 (0.2-0.8); MONOCYTES % 11.4 % (4.4-11.3); NEUTROPHILS # (AUTO) 8.1 (2.1-6.9); NEUTROPHILS % 66.8 % (38.7-80.0); PLATELET COUNT 190 x10e3/uL (140-360); RED BLOOD COUNT 2.92 x10e6/uL (3.6-5.1); RED CELL DISTRIBUTION WIDTH 14.4 % (11.7-14.4)
[2018-12-02 06:34] LABS: ANION GAP 11.2 mmol/L (8-16); CALCIUM 7.5 mg/dL (8.4-10.2); CREATININE, SERUM 0.97 mg/dL (0.57-1.11); POTASSIUM 3.2 mmol/L (3.5-5.1)
--- NOTE | 2018-12-02 06:50 | NUR ---
REPORT GIVEN TO THE ONCOMING RN.WALKING ROUNDS DONE.STABLE CONDITION
[2018-12-02] MEDS: INSULIN LISPRO 100 UNIT/1 ML 3ML VIAL SQ SCH ×4 (07:30→19:59)
[2018-12-02 07:52] LABS: EOSINOPHILS % (MANUAL) 1 % (0-7); LYMPHOCYTES % (MANUAL) 9 % (19-48); METAMYELOCYTES % (MANUAL) 1 % (0-0); MONOCYTES % (MANUAL) 5 % (3.4-9.0); MYELOCYTES % (MANUAL) 1 % (0-0); NEUTROPHILS % (MANUAL) 83 % (40-74)
[2018-12-02 07:53] LABS: RBC MORPHOLOGY COMMENT NORMAL
[2018-12-02] MEDS ORDERED: POTASSIUM CHLORIDE 20 MEQ TAB CR PO NR (08:00)
[2018-12-02] MEDS: AMLODIPINE BESYLATE 10 MG TAB PO SCH (09:00)
[2018-12-02] MEDS: HYDRALAZINE HCL 25 MG TAB PO SCH ×3 (09:00→19:58)
[2018-12-02] MEDS: POTASSIUM CHLORIDE 20 MEQ TAB CR PO SCH (09:00)
[2018-12-02] MEDS: PANTOPRAZOLE SOD 40 MG TABEC PO SCH ×2 (09:00→16:00)
[2018-12-02] MEDS: SPIRONOLACTONE 25 MG TAB PO SCH (09:00)
--- NOTE | 2018-12-02 09:00 | NUR ---
assessment complete no distress noted, updated on poc vocied understanding, denies pain at this time, dsg to l hip c/d/i, ivf infusing to l ac 20g no ss of infiltration noted, no other co voiced call light in reach will continue to monitor
--- NOTE | 2018-12-02 09:14 | NUR ---
EDUCATED ABOUT IMM SIGNED COPY LEFT IN CHART WITH COPY LEFT WITH PT AT BEDSIDE.
--- NOTE | 2018-12-02 10:18 | NUR ---
SPOKE WITH DAUGHTER ETTA SHE STATES PLAN IS TO RETURN HOME WITH HOME HEALTH TO FOLLOW UP WITH PT AND PRISON, SHE CHOOSE [facility], WILL FAX CLINICALS AND CONFIRM RECEIPT.
--- NOTE | 2018-12-02 10:29 | NUR ---
SOCIAL WORK INITIAL ASSESSMENT Validation Architect to bedside to discuss plan of care with patient/family. CM/SW role and care transitions discussed. Anticipated discharge plan discussed along with duration of care. CM/SW discussed patients right to make decisions in care. CM/SW work hours given. Patient lives: IN OWN HOME BY SELF WILL HAVE GRANDSON COME STAY AFTER DISCHARGE Admit/Transfer: VIA ED FOR FALL POA/Emergency contact: DAUGHTER ETTA MALLOY Current/Previous Home Health: NONE PCP/Follow-up Care: LYDIA Current/Previous DME: NONE Other Services: NONE Employment Status: RETIRED Areas of Concerns: WILL NEED HOME HEALTH AND A YOUTH WALKER Referral Needs: DAUGHTER CHOSE [facility] Education Needs: NA IMM/HARRIS given and signed (if applicable): IMM Goal for discharge: RETURN HOME CM/SW left business card at the bedside with contact information. Name and number was also written on the patients whiteboard. Patient verbalized understanding of discussion. CM will follow-up with ongoing discharge and transition of care needs.
[2018-12-02] MEDS: MORPHINE SULFATE INJ 4 MG/ML INJ 1ML IV PRN ×2 (11:30→19:42)
[2018-12-02] MEDS: ONDANSETRON HCL 4 MG ORAL DISINTEGRATING TAB PO PRN (11:30)
[2018-12-02] MEDS ORDERED: POTASSIUM CHLORIDE 10MEQ EA PO ONE (13:00)
--- NOTE | 2018-12-02 13:34 | NUR ---
Informed Dr. Guzman that pt does not want to go to SNF on discharge. Wants to go home with home health. gave order for home health.
[2018-12-02] MEDS: RIVAROXABAN 10 MG TABLET PO SCH (16:00)
--- NOTE | 2018-12-02 16:10 | NUR ---
[facility] CALLED AND LET KNOW THEY ARE ACCEPTING THE PATIENT. WILL NEED TO CALL WHEN DISCHARGED SO THEY CAN SERVICES ACCOUNT MANAGER AND SEE PT THE NEXT DAY.
[2018-12-02] MEDS: BISACODYL 5 MG TAB EC PO PRN (19:42)
[2018-12-02] MEDS: ATENOLOL 100 MG TAB PO SCH (19:58)
[2018-12-02] MEDS: ZOLPIDEM TARTRATE 10 MG TAB PO SCH (19:58)
[2018-12-02] MEDS: CITALOPRAM HYDROBROMIDE 20 MG TAB PO SCH (19:58)
[2018-12-03] VITALS (7 sets, daily range): BP systolic 138–176; BP diastolic 64–75
[2018-12-03] MEDS: HYDRALAZINE HCL 20 MG/ML VIAL IV PRN (04:49)
--- NOTE | 2018-12-03 07:05 | NUR ---
BEDSIDE REPORT GIVEN AT THIS TIME. NO SIGNS OF ANY DISCOMFORT.
[2018-12-03] MEDS: INSULIN LISPRO 100 UNIT/1 ML 3ML VIAL SQ SCH ×4 (07:30→20:15)
--- NOTE | 2018-12-03 08:37 | NUR ---
CALLED NURSE AND ASKED HER TO PUT IN ORDER FOR ROLLING WALKER DISCUSSED IN PRIOR ROUNDS, WILL GET WALKER FOR PT SOON GET ORDER.
[2018-12-03] MEDS: POTASSIUM CHLORIDE 20 MEQ TAB CR PO SCH (09:00)
[2018-12-03] MEDS: PANTOPRAZOLE SOD 40 MG TABEC PO SCH ×2 (09:30→16:30)
[2018-12-03] MEDS: SPIRONOLACTONE 25 MG TAB PO SCH (09:45)
[2018-12-03] MEDS: AMLODIPINE BESYLATE 10 MG TAB PO SCH (09:45)
[2018-12-03] MEDS: HYDRALAZINE HCL 25 MG TAB PO SCH ×3 (09:45→20:15)
[2018-12-03] MEDS: MORPHINE SULFATE INJ 4 MG/ML INJ 1ML IV PRN (10:00)
--- NOTE | 2018-12-03 10:00 | NUR ---
PT REPOSITIONED EARLIER. PT CO OF PAIN IN LT KNEE. MEDICATED ORDERED.
--- NOTE | 2018-12-03 10:55 | NUR ---
DELIVERED YOUTH WALKER TO PATIENT GOT GREEN SHEET SIGNED PLACED ON CHART WITH FACE SHEET AND ORDER TO BE SIGNED BY MD AND THEN FILED IN PACU. THERAPY WAS IN ROOM TO ASSIST WITH WALKER SET UP.
[2018-12-03] MEDS ORDERED: METHYLPREDNISOLONE ACETATE 80 MG/ML VIAL IM ONE (13:15)
--- NOTE | 2018-12-03 14:34 | NUR ---
DR CALDERA CAME AND TOLD PT SHE IS NOT ABLE TO RETURN HOME ON OWN EVEN WITH HOME HEALTH, SHE IS IN AGREEMENT TO GO TO [facility], DAUGHTER ETTA SIGNED CHOICE FOR [facility] AFTER BEING OFFERED TO GO TO [facility]. CALLED REP LEVI WHOM IS GOING TO COME [facility] CLINICALS AND EVAL THE PT.
--- NOTE | 2018-12-03 14:50 | NUR ---
PT GIVEN DEPO-MEDROL 80MG IM IN RT BUTTOCKS ORDERED.
--- NOTE | 2018-12-03 16:55 | NUR ---
PT REPOSITIONED AFTER USING THE BEDPAN. PT TOLERATES FAIR/
[2018-12-03] MEDS: RIVAROXABAN 10 MG TABLET PO SCH (17:00)
[2018-12-03] MEDS: DOCUSATE SODIUM 100 MG CAP PO SCH (20:00)
[2018-12-03] MEDS: ZOLPIDEM TARTRATE 10 MG TAB PO SCH (20:15)
[2018-12-03] MEDS: CITALOPRAM HYDROBROMIDE 20 MG TAB PO SCH (20:15)
[2018-12-03] MEDS: ATENOLOL 100 MG TAB PO SCH (20:15)
[2018-12-03] MEDS: BISACODYL 5 MG TAB EC PO PRN (20:16)
[2018-12-04] VITALS (8 sets, daily range): BP systolic 157–177; BP diastolic 69–79
--- NOTE | 2018-12-04 07:23 | NUR ---
Rcvd patient in report this am. Patient is asleep in bed at this time. No s/s of distress noted
[2018-12-04] MEDS: INSULIN LISPRO 100 UNIT/1 ML 3ML VIAL SQ SCH (07:30)
[2018-12-04] MEDS: HYDRALAZINE HCL 25 MG TAB PO SCH ×3 (08:22→20:42)
[2018-12-04] MEDS: POTASSIUM CHLORIDE 20 MEQ TAB CR PO SCH (08:22)
[2018-12-04] MEDS: AMLODIPINE BESYLATE 10 MG TAB PO SCH (08:22)
[2018-12-04] MEDS: SPIRONOLACTONE 25 MG TAB PO SCH (08:22)
[2018-12-04] MEDS: DOCUSATE SODIUM 100 MG CAP PO SCH (08:22)
[2018-12-04] MEDS: PANTOPRAZOLE SOD 40 MG TABEC PO SCH ×2 (08:22→16:39)
[2018-12-04 08:23] LABS: BASOPHILS # (AUTO) 0.1 (0.0-0.1); BASOPHILS % 0.4 % (0.0-1.0); EOSINOPHILS # (AUTO) 0.2 (0.0-0.4); EOSINOPHILS % 1.7 % (0.0-6.0); HEMATOCRIT 28.6 % (34.2-44.1); HEMOGLOBIN 9.5 g/dL (12.0-16.0); LYMPHOCYTES # (AUTO) 1.4 (1.0-3.2); LYMPHOCYTES % 10.1 % (18.0-39.1); MEAN CORPUSCULAR HEMOGLOBIN 30.8 pg (28-32); MEAN CORPUSCULAR HGB CONC 33.2 g/dL (31-35); MEAN CORPUSCULAR VOLUME 92.9 fL (81-99); MONOCYTES # (AUTO) 1.2 (0.2-0.8); MONOCYTES % 8.8 % (4.4-11.3); NEUTROPHILS # (AUTO) 9.7 (2.1-6.9); NEUTROPHILS % 70.6 % (38.7-80.0); PLATELET COUNT 227 x10e3/uL (140-360); RED BLOOD COUNT 3.08 x10e6/uL (3.6-5.1); RED CELL DISTRIBUTION WIDTH 14.1 % (11.7-14.4)
[2018-12-04 08:53] LABS: ALBUMIN 1.8 g/dL (3.5-5.0); ALBUMIN/GLOBULIN RATIO 0.5 (0.8-2.0); ANION GAP 11.8 mmol/L (8-16); CALCIUM 7.8 mg/dL (8.4-10.2); CREATININE, SERUM 1.02 mg/dL (0.57-1.11); POTASSIUM 3.8 mmol/L (3.5-5.1)
--- NOTE | 2018-12-04 10:30 | NUR ---
WAS CALLED AND CONFIRMED WITH AMITA THAT AUTH IS PENDING FOR [facility], CALLED AND TOLD DR FREEMAN STATES PT NEED TO GO [facility] AND TO CHANGE LOCATION, HE SPOKE WITH PT PT AT 430 AM PER DAUGHTER AND WILL AGREE TO [facility] TO CONTINUE WITH HIS SERVICE WILL FAX CLINICALS TO [facility]. SPOKE WITH LALA AT [facility] TO INITIATE REFERRAL.
--- NOTE | 2018-12-04 11:53 | NUR ---
Patient is AAOx3. Post op left ORIF to hip. Dressing clean and dry. Lung lozano clear to auscultation. Bowel sounds present x4. Patient having loose stools. Toe touch weight bearing only. Patient encouraged to sit in chair for lunch but she refused. No c/o pain in her hip. No s/s of distress noted
[2018-12-04 14:25] LABS: EOSINOPHILS % (MANUAL) 1 % (0-7); HYPOCHROMASIA MODERATE; LYMPHOCYTES % (MANUAL) 11 % (19-48); METAMYELOCYTES % (MANUAL) 3 % (0-0); MONOCYTES % (MANUAL) 4 % (3.4-9.0); MYELOCYTES % (MANUAL) 3 % (0-0); NEUTROPHILS % (MANUAL) 78 % (40-74); RBC MORPHOLOGY COMMENT NORMAL
--- NOTE | 2018-12-04 14:25 | NUR ---
Dressing to left hip changed. Meg clean and dry. No drainage noted. No redness noted. patient tolerated well and assisted back to bed
[2018-12-04 14:26] LABS: ANISOCYTOSIS SLIGHT; PLATELET ESTIMATE ADEQUATE; PLATELET MORPHOLOGY COMMENT NORMAL
[2018-12-04] MEDS: HYDROCODONE/APAP 10MG-325MG TAB PO PRN (15:15)
[2018-12-04] MEDS: ONDANSETRON HCL 4 MG ORAL DISINTEGRATING TAB PO PRN (15:16)
[2018-12-04] MEDS: RIVAROXABAN 10 MG TABLET PO SCH (16:39)
--- NOTE | 2018-12-04 18:32 | Consultation ---
DATE OF CONSULTATION: 12/04/2018 REASON FOR CONSULTATION: 1. Status post left femur fracture secondary to fall. 2. Postop ileus. 3. Hypertension. 4. Diabetes. HISTORY: An 83-year-old female, who was in her normal state of health when she fell and fractured her left hip. She was able to get up and go back to bed, but came in the hospital about a day later, found to have hip fracture, underwent surgery by Dr. Hdz. She is doing better, but unfortunately started having an ileus type of symptoms and was also seen by Dr. Nielson, has atrial fibrillation and incomplete right bundle branch block, as well as electrolyte abnormalities, hypertension, and diabetes. I am being asked to evaluate for rehab needs. PAST MEDICAL HISTORY: Hypertension, diabetes, reflux, chronic insomnia, and endometrial cancer. PAST SURGICAL HISTORY: Include hysterectomy and cholecystectomy. ALLERGIES: NO KNOWN DRUG ALLERGIES. HABITS: Denies smoking or drinking. SOCIAL HISTORY: Lives with her grandson, otherwise independent with gait and transfers and ADLs, did not use any kind of assistive device. There is a one Johnny home, grandson stays with her for the most part. FAMILY HISTORY: Positive for coronary artery disease. REVIEW OF SYSTEMS: CONSTITUTIONAL: As per the patient essentially negative except for the above findings. She said she was physically healthy prior to that. LABORATORY DATA: White cell count 13.7, hemoglobin 9.5, hematocrit 28.6, platelets of 227. Sodium is 133, potassium of 3.8, BUN of 15, creatinine 1.02. PHYSICAL EXAMINATION: GENERAL: The patient is awake and alert. No apparent distress at this time. Follows commands. EYES: Gaze conjugate. ORAL: Tongue is midline. NECK: Supple. HEART: Regular. LUNGS: Fair air entry. ABDOMEN: Nontender, nondistended. EXTREMITIES: Functional range of motion to arms as well as the legs. Sensory dos santos denies any numbness or tingling in the hands, feet, or face. Manual muscle testing, upper extremity strength is 4/5 strength bilaterally. Right lower extremity demonstrates 4+/5 strength. Left leg, hip and knee flexion extension was limited with movement secondary to the surgery. She also had 4-/5 strength in left leg. PT dos santos yesterday she did not ambulate with therapy, mod max assist with therapy otherwise with bed mobilities, but gait has not been achieved just yet. IMPRESSION: 1. Left femur fracture secondary to fall. 2. The patient with postop ileus. 3. Anemia. 4. Leukocytosis, which is now down. RECOMMENDATION: I would recommend inpatient rehab not only because of fracture, but because or active ongoing medical issues. We will work on transfers, gait, ADLs in anticipation of mobility and need for mobility training and transfers. We will follow along with you and adjust therapies as indicated. Thank you once again for allowing me to participate in care of this very interesting patient. Precautions, falls. Dallas Fischer DO RPL/MODL /[id number]
[2018-12-04] MEDS: ZOLPIDEM TARTRATE 10 MG TAB PO SCH (20:42)
[2018-12-04] MEDS: CITALOPRAM HYDROBROMIDE 20 MG TAB PO SCH (20:42)
[2018-12-04] MEDS: ATENOLOL 100 MG TAB PO SCH (20:43)
[2018-12-05] VITALS (7 sets, daily range): BP systolic 142–180; BP diastolic 63–79
[2018-12-05] MEDS: HYDRALAZINE HCL 20 MG/ML VIAL IV PRN (01:15)
--- NOTE | 2018-12-05 05:15 | NUR ---
CHANGED DRESSING TO LEFT HIP. NO BLEEDING NOTED. DAILY INTACT.
[2018-12-05 06:02] LABS: BASOPHILS # (AUTO) 0.1 (0.0-0.1); BASOPHILS % 0.6 % (0.0-1.0); EOSINOPHILS # (AUTO) 0.3 (0.0-0.4); EOSINOPHILS % 2.1 % (0.0-6.0); HEMATOCRIT 29.8 % (34.2-44.1); HEMOGLOBIN 9.6 g/dL (12.0-16.0); LYMPHOCYTES # (AUTO) 1.4 (1.0-3.2); LYMPHOCYTES % 11.4 % (18.0-39.1); MEAN CORPUSCULAR HEMOGLOBIN 30.1 pg (28-32); MEAN CORPUSCULAR HGB CONC 32.2 g/dL (31-35); MEAN CORPUSCULAR VOLUME 93.4 fL (81-99); MONOCYTES % 7.6 % (4.4-11.3); NEUTROPHILS # (AUTO) 9.2 (2.1-6.9); PLATELET COUNT 272 x10e3/uL (140-360); RED BLOOD COUNT 3.19 x10e6/uL (3.6-5.1)
--- NOTE | 2018-12-05 07:17 | NUR ---
Rcvd patient in report this am. Patient is asleep in bed at this time. No s/s of distress noted
[2018-12-05] MEDS: PANTOPRAZOLE SOD 40 MG TABEC PO SCH ×2 (08:23→16:28)
[2018-12-05] MEDS: SPIRONOLACTONE 25 MG TAB PO SCH (08:23)
[2018-12-05] MEDS: AMLODIPINE BESYLATE 10 MG TAB PO SCH (08:23)
[2018-12-05] MEDS: HYDRALAZINE HCL 25 MG TAB PO SCH ×3 (08:23→21:13)
[2018-12-05] MEDS: POTASSIUM CHLORIDE 20 MEQ TAB CR PO SCH (08:23)
[2018-12-05] MEDS: DOCUSATE SODIUM 100 MG CAP PO SCH (08:23)
[2018-12-05 10:18] LABS: EOSINOPHILS % (MANUAL) 3 % (0-7); LYMPHOCYTES % (MANUAL) 9 % (19-48); METAMYELOCYTES % (MANUAL) 1 % (0-0); MONOCYTES % (MANUAL) 6 % (3.4-9.0); MYELOCYTES % (MANUAL) 2 % (0-0); NEUTROPHILS % (MANUAL) 79 % (40-74)
[2018-12-05 10:19] LABS: ANISOCYTOSIS SLIGHT; HYPOCHROMASIA MODERATE; PLATELET ESTIMATE ADEQUATE; PLATELET MORPHOLOGY COMMENT NORMAL; RBC MORPHOLOGY COMMENT NORMAL
--- NOTE | 2018-12-05 10:57 | NUR ---
Patient is AAOx3. Patient lung lozano clear to auscultation. Bowel sounds present x4. Patient is post op left hip pinning. Meg to left hip clean and dry. Dressing clean and dry. No c/o pain at this time. Patient resting in bed. Patient is toe touch weight bearing to left leg. No s/s of distress noted
--- NOTE | 2018-12-05 13:02 | NUR ---
per Mayda Mccallum with [facility], still pending insurance auth.
[2018-12-05] MEDS: HYDROCODONE/APAP 10MG-325MG TAB PO PRN (16:29)
--- NOTE | 2018-12-05 17:18 | Progress Note ---
DATE: 12/05/2018 SUBJECTIVE: She is doing okay. She states she does not feel that great, feeling weak, feeling tired. White cell count of 12.5, hemoglobin 9.6, hematocrit 29.8, and platelets of 272. OBJECTIVE: VITAL SIGNS: Temperature 98.2, respirations 20, heart rate 75, blood pressure of 165/70. HEART: Regular. LUNGS: Fair air entry. ABDOMEN: Nontender, nondistended. NECK: No JVD. . Review of the PT notes from yesterday show moderate assist for supine to sit transfers. Slow progression, but she is trying to make progress. Awaiting insurance approval for transfer to inpatient rehab, as she could benefit from a multidisciplinary rehab aspect of the rehab program. Dallas Fischer DO RPL/MODL /[id number]
[2018-12-05] MEDS: ATENOLOL 100 MG TAB PO SCH (21:13)
[2018-12-05] MEDS: ZOLPIDEM TARTRATE 10 MG TAB PO SCH (21:13)
[2018-12-05] MEDS: CITALOPRAM HYDROBROMIDE 20 MG TAB PO SCH (21:13)
[2018-12-06] VITALS (10 sets, daily range): BP systolic 135–183; BP diastolic 63–79
--- NOTE | 2018-12-06 07:00 | NUR ---
BEDSIDE ROUNDING DONE. PT RESTING QUIETLY.
[2018-12-06] MEDS: PANTOPRAZOLE SOD 40 MG TABEC PO SCH ×2 (07:30→16:30)
--- NOTE | 2018-12-06 08:30 | NUR ---
Pt. expressed no spiritual or emotional concerns. Grassroots Organizer provided hospitality and empathic listening. No need to follow at this time. CAMILA SALES Grassroots Organizer Spiritual Care Department O: [phone] Pager: [phone] ([phone] number calling from)
[2018-12-06] MEDS: AMLODIPINE BESYLATE 10 MG TAB PO SCH (09:00)
[2018-12-06] MEDS: DOCUSATE SODIUM 100 MG CAP PO SCH (09:00)
[2018-12-06] MEDS: POTASSIUM CHLORIDE 20 MEQ TAB CR PO SCH (09:00)
[2018-12-06] MEDS: HYDRALAZINE HCL 25 MG TAB PO SCH ×3 (09:00→21:14)
[2018-12-06] MEDS: SPIRONOLACTONE 25 MG TAB PO SCH (09:00)
[2018-12-06 09:42] LABS: ALBUMIN 2.1 g/dL (3.5-5.0); ALBUMIN/GLOBULIN RATIO 0.6 (0.8-2.0); ANION GAP 13.2 mmol/L (8-16); CALCIUM 7.1 mg/dL (8.4-10.2); CREATININE, SERUM 1.13 mg/dL (0.57-1.11); POTASSIUM 4.2 mmol/L (3.5-5.1)
--- NOTE | 2018-12-06 10:00 | NUR ---
PT UP AMBULATING WITH PT AND WALKER.
[2018-12-06] MEDS: HYDROCODONE/APAP 10MG-325MG TAB PO PRN (13:00)
--- NOTE | 2018-12-06 13:34 | NUR ---
Nutrition Intervention Note RD Recommendation(s) for Physician: -Continue current diet. -Re weigh pt Plan of Care: RD following, monitoring for tolerance and adequacy Nutrition reason for involvement:follow up RD Assessment 12/06: Follow up: Pt has been advanced to an 1800 ADA diet. Pt reports she is tolerating the diet well and eating at least 40% of meals. Pt stated she is eating small bites. Pt has no c/o N/V/C/D or any chewing or swallowing issues at this time. According to EMR on 12/06; weight is 70 lbs. Will recommend another weight check, weights appear abnormal. Will continue to monitor. 11/30: NGT clamped and ileus/SBO likely resolved. Pt is ready to eat. PO diet will probably be initiated on tomorrow. Large wt increase noted - 144.[address] may need to reassess energy and protein needs after weight is confirmed. Order to transfer to the floor noted. Initial encounter with patient. Patient with a post op ileus/SBO/fecal impaction with an NGT to suction and awaiting a CT scan with contrast. 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 Pt describes herself as a small eater that eats 5-6 meals a day. Daughter present at bedside who is a senior staff consultant at [employer]. Pt denies any difficulty chewing or swallowing. Denies any wt changes. Principal Problems/Diagnoses: Fall Hip Fx PMH: HTN, T2DM, cholecystectomy IVF: ---- GI: LBM: 12/06 Skin: intact Labs: 12/06: Na 133, Co2 21, Creat 1.13, Ca 7.1 Meds: spironolactone, colace, K-DUR given, protonix, celexa, Malnutrition Evaluation (11/28/2018) The patient does not meet criteria for a specified degree of malnutrition at this time. Will re-evaluate at follow-up as appropriate. Diet Education Needs Assessment: Diet education not indicated. Ht:59 Wt:115lbs 11/30 144.44 12/06: 70.3 lbs BMI:14.1 IBW:95lbs Estimated Nutritional Needs: 8262-4107 kcals at 25 -35kcals/kg/bw (used 52 kg) (115 lbs) 52-78g of protein 1-1.5g/kg/bw (used 52 kg) (115 lbs) Nutrition Prescription (Diet Order): ADA diet 1800 Food Allergies: No known food allergies Diet Adequacy: Meeting calorie needs, Meeting protein needs Nutrition Care Level: Mod Nutrition Diagnosis: Altered GI function related to post op ileus as evidenced by KUB Goal:Patient will meet 75-100% of estimated needs by follow up Progress: Progressing Interventions: carbmodified diet, Recommended Modifications, Prescription medication Monitoring/Evaluation: Total energy intake, Total protein intake, Prescription medication, Weight change,
--- NOTE | 2018-12-06 15:44 | NUR ---
Pt was denied for inpatient rehab. Dr. Fischer was to do P2P today. CM placed call to liaison Carley Melchor to get an update. Left a voicemail with callback number.
--- NOTE | 2018-12-06 16:00 | NUR ---
Updated pt and her son at bedside regarding status of inpatient rehab.
--- NOTE | 2018-12-06 18:45 | NUR ---
NO CHANGES AT THIS TIME IN PT STATUS
[2018-12-06] MEDS: ATENOLOL 100 MG TAB PO SCH (21:14)
[2018-12-06] MEDS: CITALOPRAM HYDROBROMIDE 20 MG TAB PO SCH (21:14)
[2018-12-06] MEDS: ZOLPIDEM TARTRATE 10 MG TAB PO SCH (21:14)
[2018-12-07] VITALS (8 sets, daily range): BP systolic 139–174; BP diastolic 65–77
--- NOTE | 2018-12-07 05:33 | NUR ---
DRESSING TO LEFT HIP DONE.
--- NOTE | 2018-12-07 08:28 | Progress Note ---
DATE: 12/07/2018 SUBJECTIVE: The patient is status post left hip fracture, status post repair, open reduction and internal fixation. The patient also had a small bowel obstruction, which is resolved. The patient has also debility, which she is undergoing physical therapy for and currently with no complaints. OBJECTIVE: GENERAL: Very pleasant lady, alert and oriented x3. VITAL SIGNS: Temperature is 98.7, pulse of 81, respirations of 19, and blood pressure is 164/72. HEENT: Normocephalic, atraumatic. Pupils are reactive to light and accommodation. CVS: S1, S2 normal. Left hip surgical wound is normal, looked dry. No edema. ABDOMEN: Soft. EXTREMITIES: No clubbing, no cyanosis, or no edema. LABORATORY DATA: None done since . On , the white count is 12.57, hemoglobin of 9.6, and hematocrit of 29.8. Chemistry shows sodium of 133 yesterday and potassium 4.2. BUN is normal and creatinine is 1.13. ASSESSMENT: 1. Left hip fracture, status post open reduction and internal fixation. The patient is on antibiotics. 2. Small bowel obstruction, which has resolved. 3. The patient also has type 2 diabetes mellitus. Continue same medications. 4. Leukocytosis, resolving. MEDICATIONS: Currently on hydralazine, atenolol, zolpidem, citalopram, pantoprazole, hydrocodone, Aldactone, amlodipine, potassium, acetaminophen, metoprolol p.r.n., diphenhydramine p.r.n.. PLAN: Plan is to continue monitoring the patient. DISPOSITION: Plan to move to rehab facility is on order. Continue monitoring the patient. MD MARICRUZ AzevedoJ/MODL /[id number]
[2018-12-07] MEDS: PANTOPRAZOLE SOD 40 MG TABEC PO SCH ×2 (08:40→17:40)
[2018-12-07] MEDS: AMLODIPINE BESYLATE 10 MG TAB PO SCH (10:30)
[2018-12-07] MEDS: DOCUSATE SODIUM 100 MG CAP PO SCH (10:30)
[2018-12-07] MEDS: SPIRONOLACTONE 25 MG TAB PO SCH (10:30)
[2018-12-07] MEDS: POTASSIUM CHLORIDE 20 MEQ TAB CR PO SCH (10:30)
[2018-12-07] MEDS: HYDRALAZINE HCL 25 MG TAB PO SCH ×3 (10:30→21:46)
[2018-12-07] MEDS: HYDROCODONE/APAP 10MG-325MG TAB PO PRN (13:54)
--- NOTE | 2018-12-07 19:32 | NUR ---
Received patient in bedside report. No pain reported at this time. No S&S of distress noted. Family member at bedside. Bed locked in lowest position, call light in reach.
[2018-12-07] MEDS: ONDANSETRON HCL 4 MG ORAL DISINTEGRATING TAB PO PRN (20:11)
[2018-12-07] MEDS: CITALOPRAM HYDROBROMIDE 20 MG TAB PO SCH (21:46)
[2018-12-07] MEDS: ATENOLOL 100 MG TAB PO SCH (21:46)
[2018-12-07] MEDS: ZOLPIDEM TARTRATE 10 MG TAB PO PRN (22:58)
--- NOTE | 2018-12-07 23:00 | NUR ---
Spoke to Dr Craft concerning medication, new orders received.
[2018-12-08] VITALS (8 sets, daily range): BP systolic 122–168; BP diastolic 60–72
--- NOTE | 2018-12-08 06:20 | NUR ---
Dressing to L hip changed at this time. Dressing and incision noted to be C/D/I. No redness or drainage. Sterile gauze applied, affixed with Medfix retention tape. Patient tolerated well.
--- NOTE | 2018-12-08 07:00 | NUR ---
bedside rounds complete no distress noted, updated on poc voiced understanding, denies pain at this time, call light in reach will continue to monitor
--- NOTE | 2018-12-08 09:14 | Progress Note ---
DATE: 12/08/2018 SUBJECTIVE: The patient is here for fall with hip fracture, status post open reduction internal fixation. The patient has been walking a bit. No complaints have been noted. The patient's pain is about 2/10 and at the max 5/10 on ambulation. OBJECTIVE: VITAL SIGNS: Temperature is 97.2, pulse of 72, respirations of 19, blood pressure is 152/69, and pulse oximetry of 95%. HEENT: Normocephalic, atraumatic. Pupils are reactive to light and accommodation. CVS: S1 and S2, normal. Regular rate and rhythm. ABDOMEN: Nontender, nondistended. EXTREMITIES: Hip is tender on palpation, but dry wounds. ASSESSMENT: 1. Left hip fracture, status post open reduction and internal fixation. The patient is on antibiotics. 2. Small bowel obstruction, which has resolved. 3. Diabetes mellitus. Continue medications. 4. Leukocytosis, which has resolved. PLAN: Plan is to continue to monitor the patient. The patient is in transition to move to rehab. Dr. Fischer has seen the patient and possible move to [facility] is considered. MD ROGELIO Azevedo/MODL /[id number]
[2018-12-08] MEDS: POTASSIUM CHLORIDE 20 MEQ TAB CR PO SCH (09:25)
[2018-12-08] MEDS: HYDRALAZINE HCL 25 MG TAB PO SCH ×3 (09:25→20:05)
[2018-12-08] MEDS: PANTOPRAZOLE SOD 40 MG TABEC PO SCH ×2 (09:25→16:30)
[2018-12-08] MEDS: SPIRONOLACTONE 25 MG TAB PO SCH (09:25)
[2018-12-08] MEDS: DOCUSATE SODIUM 100 MG CAP PO SCH (09:25)
[2018-12-08] MEDS: AMLODIPINE BESYLATE 10 MG TAB PO SCH (09:25)
--- NOTE | 2018-12-08 09:25 | NUR ---
assessment complete no distress noted, updated on poc voiced understanding, denies pain at this time, l ac 20g no ss of infiltration noted, no other co vocied call light in reach will continue to monitor
--- NOTE | 2018-12-08 19:10 | NUR ---
BEDSIDE SHIFT REPORT PERFORMED. RECEIVED PT (R) SIDE LAYING IN BED, PT IS AAOX3, RR EVEN AND NON-LABORED, ON RA. NO S/SX OF DISTRESS NOTED. LEFT PT (R) SIDE LAYING IN BED, BED IN LOW LOCKED POSITION, SIDE RAILS UPX2, CALL LIGHT AND PHONE WITHIN REACH.
[2018-12-08] MEDS: ZOLPIDEM TARTRATE 10 MG TAB PO PRN (20:05)
[2018-12-08] MEDS: CITALOPRAM HYDROBROMIDE 20 MG TAB PO SCH (20:05)
[2018-12-08] MEDS: ATENOLOL 100 MG TAB PO SCH (20:05)
[2018-12-09] VITALS (8 sets, daily range): BP systolic 121–154; BP diastolic 58–69
[2018-12-09] MEDS: ACETAMINOPHEN 325 MG TAB PO PRN (05:06)
--- NOTE | 2018-12-09 06:27 | NUR ---
DRESSING TO (R) HIP CHANGED AT THIS TIME. REMOVED OLD DRESSING. INCISION NOTED TO BE CDI, DAILY INTACT. APPLIED STERILE 2X2 AND SECURED WITH MEDFIX RETENTION TAPE.
[2018-12-09 06:31] LABS: BASOPHILS # (AUTO) 0.1 (0.0-0.1); BASOPHILS % 0.5 % (0.0-1.0); EOSINOPHILS # (AUTO) 0.2 (0.0-0.4); EOSINOPHILS % 1.2 % (0.0-6.0); HEMATOCRIT 26.8 % (34.2-44.1); HEMOGLOBIN 8.6 g/dL (12.0-16.0); LYMPHOCYTES # (AUTO) 1.3 (1.0-3.2); LYMPHOCYTES % 11.1 % (18.0-39.1); MEAN CORPUSCULAR HGB CONC 32.1 g/dL (31-35); MEAN CORPUSCULAR VOLUME 93.4 fL (81-99); MONOCYTES % 8.6 % (4.4-11.3); NEUTROPHILS # (AUTO) 9.4 (2.1-6.9); NEUTROPHILS % 77.9 % (38.7-80.0); PLATELET COUNT 297 x10e3/uL (140-360); RED BLOOD COUNT 2.87 x10e6/uL (3.6-5.1); RED CELL DISTRIBUTION WIDTH 13.9 % (11.7-14.4)
[2018-12-09] MEDS: HYDROCODONE/APAP 10MG-325MG TAB PO PRN ×2 (06:38→11:16)
[2018-12-09] MEDS: AMLODIPINE BESYLATE 10 MG TAB PO SCH (08:49)
[2018-12-09] MEDS: POTASSIUM CHLORIDE 20 MEQ TAB CR PO SCH (08:49)
[2018-12-09] MEDS: HYDRALAZINE HCL 25 MG TAB PO SCH ×3 (08:49→21:18)
[2018-12-09] MEDS: SPIRONOLACTONE 25 MG TAB PO SCH (08:49)
[2018-12-09] MEDS: PANTOPRAZOLE SOD 40 MG TABEC PO SCH ×2 (08:49→17:23)
[2018-12-09] MEDS: DOCUSATE SODIUM 100 MG CAP PO SCH (08:49)
--- NOTE | 2018-12-09 10:30 | NUR ---
Received message from Mayda Mccallum with [facility] that they have received formal email that denial was upheld after p2p, but pt has been pre-approved for SNF. Spoke to pt and her daughter in law at bedside. Gave them a list of in network facilities. Will follow up later today for choice.
--- NOTE | 2018-12-09 13:29 | NUR ---
Spoke with pt's son, [id number], and pt at bedside. Also had pt's daughter Deidre on the phone. Pt and Deidre decided they do not want pt to go to a SNF. Wants to go home with home health thru [facility]. Pt has walker, BSC, wheelchair at home. Deidre states pt's grandson Parag will stay with her during the day and all the kids will rotate at night. CM will refax orders/clinicals to [facility]. Pt to follow up with Dr. Hdz in 10 days.
[2018-12-09] MEDS: ONDANSETRON HCL 4 MG ORAL DISINTEGRATING TAB PO PRN (19:50)
[2018-12-09] MEDS: CITALOPRAM HYDROBROMIDE 20 MG TAB PO SCH (21:18)
[2018-12-09] MEDS: ZOLPIDEM TARTRATE 10 MG TAB PO PRN (21:19)
[2018-12-09] MEDS: ATENOLOL 100 MG TAB PO SCH (21:19)
[2018-12-10 04:00] VITALS: BP 163/73
[2018-12-10 08:23] VITALS: BP 160/66
--- NOTE | 2018-12-10 09:16 | NUR ---
Called and spoke with Elida at [facility]. Informed her that pt will be discharging today. Updated clinicals faxed. Addendum: 12/10/18 at 0920 by Ana Cesar CM IMM letter delivered and explained to pt. She verbalized understanding of her rights. Signed copy placed in chart. Copy to pt.
[2018-12-10] MEDS: HYDRALAZINE HCL 25 MG TAB PO SCH (09:55)
[2018-12-10] MEDS: SPIRONOLACTONE 25 MG TAB PO SCH (09:55)
[2018-12-10] MEDS: DOCUSATE SODIUM 100 MG CAP PO SCH (09:55)
[2018-12-10] MEDS: PANTOPRAZOLE SOD 40 MG TABEC PO SCH (09:55)
[2018-12-10] MEDS: AMLODIPINE BESYLATE 10 MG TAB PO SCH (09:55)
--- NOTE | 2018-12-12 07:18 | Discharge Summary ---
DISCHARGE DIAGNOSES: 1. Right hip fracture, status post fall, status post repair. 2. Anemia. 3. Ileus. HISTORY OF PRESENT ILLNESS AND HOSPITAL COURSE: See hospital chart for full details. The patient is an elderly lady, who unfortunately tripped at home, fell, sustained a right hip fracture. She came in and had a repair and that went well, but the patient did have evidence of an ileus and an episode of emesis x1 with an NG tube placement of some gastric content of about 500 mL. The patient was placed on prophylactic antibiotics for aspiration pneumonia and the patient did well with this without any respiratory compromise. She also had some ileus, it took 3 days to resolve once the patient is starting to pass gas and and she is able to continue rest of the her hospitalization. The patient was able to start with therapy. She due to insurance reasons. The patient did not want to stay at facility, so the patient was then transferred to home per her wishes as well as family wishes with home physical therapy. The patient did well overall and she is to follow up in 1 to 2 weeks with me as well as with Dr. Hdz of orthopedics. Please see hospital chart for full details. MD CAROL Elkins/PAN /[id number]
== END 2018-12-10 10:30 | disposition home health service (06) | DRG 480 ==
LOC: ER 20:02 → ERHOLD 23:10 → MED/SURG 11-23 00:09 → ICU 11-26 15:50 → IMCU 11-30 15:00 → MED/SURG 11-30 22:00
PROVIDERS: ADMIT Internal Medicine; ATTEND Internal Medicine
PROC: 0QSC04Z Reposition Left Lower Femur with Internal Fixation Device, Open Approach (ICD-10-PCS; principal; 2018-11-22)
PROC: 0QHC05Z Insertion of External Fixation Device into Left Lower Femur, Open Approach (ICD-10-PCS; 2018-11-22)
DX: S72.002A Fracture of unspecified part of neck of left femur, initial encounter for closed fracture (principal); J69.0 Pneumonitis due to inhalation of food and vomit; K56.7 Ileus, unspecified; K91.89 Other postprocedural complications and disorders of digestive system; E83.42 Hypomagnesemia; E87.6 Hypokalemia; I10 Essential (primary) hypertension; W01.0XXA Fall on same level from slipping, tripping and stumbling without subsequent striking against object, initial encounter; I48.0 Paroxysmal atrial fibrillation; Z79.01 Long term (current) use of anticoagulants; K21.9 Gastro-esophageal reflux disease without esophagitis; G47.00 Insomnia, unspecified; I45.10 Unspecified right bundle-branch block; D64.9 Anemia, unspecified; E11.22 Type 2 diabetes mellitus with diabetic chronic kidney disease; I12.9 Hypertensive chronic kidney disease with stage 1 through stage 4 chronic kidney disease, or unspecified chronic kidney disease; N18.3 Chronic kidney disease, stage 3 (moderate); R19.7 Diarrhea, unspecified; M25.572 Pain in left ankle and joints of left foot
CPT/HCPCS: 36415; 70450; 71045; 71250; 72125; 74018; 74176; 80048; 80053; 81001; 82150; 82550; 82553; 82948; 83036; 83605; 83690; 83735; 84132; 84443; 84484; 85014; 85018; 85025; 85610; 85651; 85730; 86039; 86140; 86431; 86850; 86900; 86920; 87040; 87086; 87400; 93005; 93306; 93970; 93971; 97139; 99284; C1713; J0360; J0690; J1040; J1650; J1940; J1956; J2001; J2250; J2270; J2405; J2543; J3475; J3480; J7030; J7040; J7050; P9016

== ENCOUNTER → 2020-02-06 | Outpatient (CLI) | payer MEDICARE ==
[~2020-02-06] MED LIST changes: +DIATRIZOATE MEGL/DIATRIZOA SOD 30 ML BTL PO ONE; +DICYCLOMINE HCL10 MG
--- NOTE | 2020-02-06 13:32 | Diagnostic Imaging Report ---
EXAM: CT Abdomen and Pelvis WITHOUT intravenous contrast INDICATION: Acute abdomen COMPARISON: CT abdomen and pelvis of 11/28/2018 TECHNIQUE: Abdomen and pelvis were scanned utilizing a multidetector helical scanner from the lung base to the pubic symphysis without administration of IV contrast. Coronal and sagittal reformations were obtained. IV CONTRAST: None ORAL CONTRAST: Gastrografin COMPLICATIONS: None RADIATION DOSE: Total DLP: 159 mGy*cm Dose modulation, iterative reconstruction, and/or weight based adjustment of the mA/kV was utilized to reduce the radiation dose to as low as reasonably achievable. FINDINGS: LOWER THORAX: No focal lung base consolidation. HEPATOBILIARY: No focal liver lesion. Status post cholecystectomy. SPLEEN: No splenomegaly. PANCREAS: No focal masses or ductal dilatation. ADRENALS: No adrenal nodules. KIDNEYS/URETERS: Hypodense 1.5 cm posterior right midpole lesion most likely represents a cyst. PELVIC ORGANS/BLADDER: Unremarkable. PERITONEUM / RETROPERITONEUM: No free air or fluid. LYMPH NODES: No lymphadenopathy. VESSELS: Diffuse atherosclerotic calcifications of the nonaneurysmal abdominal aorta and major branches. GI TRACT: Diverticulosis without CT evidence of diverticulitis. No abnormal bowel thickening. No bowel obstruction. Normal appendix. BONES AND SOFT TISSUES: No acute osseous injury. No suspicious lytic or blastic lesions. Partially visualized ORIF hardware of the right proximal femur. Mild degenerative changes of the visualized spine with grade 1 anterolisthesis at L4-5. IMPRESSION: No acute findings in the abdomen or pelvis. Diverticulosis without CT evidence of diverticulitis. The above findings were discussed with Dr. Guzman on 02/06/2020 1:22 PM, who responded indicating that the communication was understood. Signed by: Indigo Le MD on 02/06/2020 1:29 PM
== END ==
LOC: CT 12:06
PROVIDERS: ATTEND Internal Medicine
DX: R10.0 Acute abdomen (principal)
CPT/HCPCS: 74176

== ENCOUNTER → 2020-08-19 | Outpatient (CLI) | payer OTHER ==
[~2020-08-19] MED LIST changes: +COVID-19 VACC, MRNA(MODERNA)/PF 100 MCG/0.5 ML VIAL IM ONE; -DIATRIZOATE MEGL/DIATRIZOA SOD 30 ML BTL PO ONE
== END ==
LOC: VACCPMC 16:00
DX: Z23 Encounter for immunization (principal); Z20.822 Contact with and (suspected) exposure to COVID-19

== ENCOUNTER → 2020-09-17 | Outpatient (CLI) | payer OTHER | END | DRG 951 | LOC: VACCPMC 10:09 | DX: Z23 Encounter for immunization (principal); Z20.822 Contact with and (suspected) exposure to COVID-19 | CPT/HCPCS: 0012A; 91301 ==

== ENCOUNTER 2023-12-01 14:39 | Inpatient (IN) | payer MEDICARE ==
[~2023-12-01] VITALS: Ht 149.9 cm; Wt 44.5 kg
[~2023-12-01 14:39] MED LIST changes: -COVID-19 VACC, MRNA(MODERNA)/PF 100 MCG/0.5 ML VIAL IM ONE; +LEVOTHYROXINE50 MCG PO; +METOCLOPRAMIDE10 MG PO; +MONTELUKAST SOD10 MG PO; +PROTONIX20 MG PO
[2023-12-01] MEDS ORDERED: PROMETHAZINE 12.5MG/ NACL 0.9% 12.5 MG/50 ML BAG IV ONE (17:30)
[2023-12-01] MEDS ORDERED: PROMETHAZINE HCL (IM) 25 MG/ML VIAL IM ONE (17:46)
[2023-12-01] MEDS: SODIUM CHLORIDE 0.9% 1000ML 1,000 ML IV SCH (17:46)
[2023-12-01] MEDS: PROMETHAZINE HCL (IM) 25 MG/ML VIAL IM ONE (17:46)
[2023-12-01] MEDS ORDERED: SODIUM CHLORIDE 0.9% 1000ML 0 ML ONE (17:47)
[2023-12-01] MEDS ORDERED: SODIUM CHLORIDE 0.9% 1000ML 1,000 ML IV SCH (18:00)
[2023-12-01] MEDS ORDERED: SODIUM BICARBONATE 8.4% 50 ML VIAL IV STA (18:08)
[2023-12-01] MEDS ORDERED: ZOLPIDEM TARTRATE 10 MG TAB PO PRN (18:15)
[2023-12-01] MEDS: FAMOTIDINE 20 MG/2 ML VIAL IV SCH (18:49)
[2023-12-01] MEDS ORDERED: SODIUM CHLORIDE 0.9% 1000ML 1,000 ML ONE (18:50)
[2023-12-01] MEDS ORDERED: FAMOTIDINE 20 MG/2 ML VIAL IV ONE (18:50)
[2023-12-01] MEDS ORDERED: SODIUM BICARBONATE 4.2% 10 ML SYRINGE ONE (18:50)
[2023-12-01] MEDS ORDERED: SODIUM BICARBONATE 8.4% 50 ML VIAL ONE (18:50)
[2023-12-01] MEDS: SODIUM BICARBONATE 8.4% IV SCH (19:02)
[2023-12-01] MEDS: SODIUM CHLORIDE 0.9% IV SCH (19:02)
[2023-12-01 19:30] VITALS: BP_SYST 151; BP_DIAS 54; BP_DIAS 56; PULSE 99; RESP 16; TEMP 97.9; O2SAT 99
[2023-12-01 20:00] VITALS: BP 151/59; PULSE 54; RESP 15; TEMP 97.9; O2SAT 99
[2023-12-01] MEDS ORDERED: MAGOX 400400 MG PO (20:42)
[2023-12-01] MEDS ORDERED: ONDANSETRON ODT8 MG PO (20:46)
[2023-12-02] VITALS (8 sets, daily range): BP systolic 106–142; BP diastolic 47–68; PULSE 51–66; RESP 17–20; TEMP 97.5–98.8; O2SAT 99–100
[2023-12-02] MEDS: SODIUM CHLORIDE 0.9% 1000ML 1,000 ML IV SCH (05:37)
[2023-12-02 08:48] LABS: BASOPHILS # (AUTO) 0.1 (0.0-0.1); BASOPHILS % 0.8 % (0.0-1.0); EOSINOPHILS # (AUTO) 0.2 (0.0-0.4); EOSINOPHILS % 2.4 % (0.0-6.0); HEMOGLOBIN 7.4 g/dL (12.0-16.0); LYMPHOCYTES # (AUTO) 1.4 (1.0-3.2); LYMPHOCYTES % 17.8 % (18.0-39.1); MEAN CORPUSCULAR HEMOGLOBIN 31.5 pg (28-32); MEAN CORPUSCULAR HGB CONC 32.5 g/dL (31-35); MONOCYTES # (AUTO) 0.6 (0.2-0.8); NEUTROPHILS # (AUTO) 5.4 (2.1-6.9); NEUTROPHILS % 70.6 % (38.7-80.0); PLATELET COUNT 239 x10e3/uL (140-360); RED BLOOD COUNT 2.35 x10e6/uL (3.6-5.1); RED CELL DISTRIBUTION WIDTH 13.2 % (11.7-14.4); WHITE BLOOD COUNT 7.59 x10e3/uL (4.8-10.8)
[2023-12-02 08:52] LABS: HEMATOCRIT 22.8 % (34.2-44.1)
[2023-12-02 09:07] LABS: ALBUMIN 2.5 g/dL (3.5-5.0); ANION GAP 14.8 mmol/L (8-16); BILIRUBIN,TOTAL 0.5 mg/dL (0.2-1.2); CALCIUM 7.7 mg/dL (8.4-10.2); CREATININE, SERUM 5.73 mg/dL (0.57-1.11); MAGNESIUM 2.2 MG/DL (1.3-2.1); POTASSIUM 4.8 mmol/L (3.5-5.1); TOTAL PROTEIN 4.9 g/dL (6.5-8.1)
[2023-12-02] MEDS: SODIUM BICARBONATE 8.4% 50 ML in SODIUM CHLORIDE 0.9% 1000ML 1,000 ML IV SCH (15:41)
[2023-12-02 22:50] LABS: % IRON SATURATION 51 % (15-50); IRON 58 ug/dL (50-170); TOTAL IRON BINDING CAPACITY 113 ug/dL (261-478); TRANSFERRIN 81 mg/dL (180-382)
[2023-12-02] MEDS: DICYCLOMINE HCL 20 MG TAB PO STA (23:05)
[2023-12-02] MEDS: METOCLOPRAMIDE HCL 10 MG/2ML VIAL IV SCH (23:06)
[2023-12-03] VITALS (13 sets, daily range): BP systolic 140–192; BP diastolic 52–67; PULSE 57–67; RESP 16–18; TEMP 98.1–98.9; O2SAT 99–100
[2023-12-03 05:39] LABS: BASOPHILS # (AUTO) 0.1 (0.0-0.1); BASOPHILS % 0.9 % (0.0-1.0); EOSINOPHILS # (AUTO) 0.2 (0.0-0.4); EOSINOPHILS % 2.5 % (0.0-6.0); HEMATOCRIT 23.9 % (34.2-44.1); HEMOGLOBIN 7.6 g/dL (12.0-16.0); LYMPHOCYTES # (AUTO) 1.4 (1.0-3.2); LYMPHOCYTES % 16.6 % (18.0-39.1); MEAN CORPUSCULAR HEMOGLOBIN 31.3 pg (28-32); MEAN CORPUSCULAR HGB CONC 31.8 g/dL (31-35); MEAN CORPUSCULAR VOLUME 98.4 fL (81-99); MONOCYTES # (AUTO) 0.7 (0.2-0.8); MONOCYTES % 7.7 % (4.4-11.3); NEUTROPHILS # (AUTO) 6.1 (2.1-6.9); NEUTROPHILS % 71.8 % (38.7-80.0); PLATELET COUNT 250 x10e3/uL (140-360); RED BLOOD COUNT 2.43 x10e6/uL (3.6-5.1); WHITE BLOOD COUNT 8.55 x10e3/uL (4.8-10.8)
[2023-12-03 06:24] LABS: ANION GAP 13.1 mmol/L (8-16); CALCIUM 7.8 mg/dL (8.4-10.2); CREATININE, SERUM 4.78 mg/dL (0.57-1.11); POTASSIUM 4.1 mmol/L (3.5-5.1)
[2023-12-03] MEDS ORDERED: ZOLPIDEM TARTRATE 10 MG TAB ONE (10:00)
[2023-12-03] MEDS ORDERED: Sodium Chloride 0.9% 50ML Bag ONE (10:00)
[2023-12-03] MEDS ORDERED: METOCLOPRAMIDE HCL 10 MG/2ML VIAL ONE (10:00)
[2023-12-03] MEDS ORDERED: FOLIC ACID 1 MG TAB ONE (10:00)
[2023-12-03] MEDS ORDERED: DICYCLOMINE HCL 10 MG CAP ONE (10:00)
[2023-12-03] MEDS ORDERED: MULTIVITAMINS IV SCH (10:45)
[2023-12-03] MEDS ORDERED: [UNRECOGNIZED DRUG - OTHER] IV SCH (10:45)
[2023-12-03] MEDS ORDERED: FOLIC ACID IV SCH (10:45)
[2023-12-03] MEDS: [UNRECOGNIZED DRUG - OTHER] IV SCH (11:00)
[2023-12-03] MEDS: MULTIVITAMINS IV SCH (11:00)
[2023-12-03] MEDS: FOLIC ACID IV SCH (11:00)
[2023-12-03] MEDS: DICYCLOMINE HCL 20 MG TAB PO SCH (12:37)
[2023-12-03] MEDS: FOLIC ACID 1 MG TAB PO SCH (12:37)
[2023-12-03] MEDS: HYDRALAZINE HCL 20 MG/ML VIAL IV PRN (16:38)
[2023-12-03] MEDS: SODIUM CHLORIDE 0.9% 250ML 250 ML IV ONE (19:05)
[2023-12-03] MEDS: ZOLPIDEM TARTRATE 10 MG TAB PO PRN (23:10)
[2023-12-04] VITALS (9 sets, daily range): BP systolic 131–218; BP diastolic 46–99; PULSE 64–70; RESP 16–20; TEMP 98.3–100.5; O2SAT 93–100
[2023-12-04] MEDS: AMLODIPINE BESYLATE 5 MG TAB PO SCH (04:54)
[2023-12-04 05:43] LABS: BASOPHILS # (AUTO) 0.1 (0.0-0.1); BASOPHILS % 0.6 % (0.0-1.0); EOSINOPHILS # (AUTO) 0.1 (0.0-0.4); EOSINOPHILS % 1.1 % (0.0-6.0); HEMATOCRIT 30.3 % (34.2-44.1); HEMOGLOBIN 10.1 g/dL (12.0-16.0); LYMPHOCYTES # (AUTO) 1.7 (1.0-3.2); LYMPHOCYTES % 16.3 % (18.0-39.1); MEAN CORPUSCULAR HEMOGLOBIN 31.1 pg (28-32); MEAN CORPUSCULAR HGB CONC 33.3 g/dL (31-35); MEAN CORPUSCULAR VOLUME 93.2 fL (81-99); MONOCYTES % 9.4 % (4.4-11.3); NEUTROPHILS # (AUTO) 7.4 (2.1-6.9); NEUTROPHILS % 71.8 % (38.7-80.0); PLATELET COUNT 208 x10e3/uL (140-360); RED BLOOD COUNT 3.25 x10e6/uL (3.6-5.1); RED CELL DISTRIBUTION WIDTH 14.9 % (11.7-14.4); WHITE BLOOD COUNT 10.24 x10e3/uL (4.8-10.8)
[2023-12-04 06:07] LABS: ALBUMIN 2.6 g/dL (3.5-5.0); ANION GAP 15.1 mmol/L (8-16); BILIRUBIN,TOTAL 0.8 mg/dL (0.2-1.2); CREATININE, SERUM 3.98 mg/dL (0.57-1.11); POTASSIUM 4.1 mmol/L (3.5-5.1); TOTAL PROTEIN 5.3 g/dL (6.5-8.1)
[2023-12-04] MEDS: NIFEDIPINE CR 30 MG TAB PO SCH (13:12)
[2023-12-04] MEDS: CLONIDINE HCL 0.2 MG/24 HR 1 EA PATCH TOP SCH (13:13)
[2023-12-04 17:16] LABS: BILIRUBIN,URINE NEGATIVE (NEGATIVE); CLARITY,URINE CLEAR (CLEAR); COLOR,URINE YELLOW (YELLOW); GLUCOSE, URINE NEGATIVE (NEGATIVE); KETONES,URINE NEGATIVE (NEGATIVE); LEUKOCYTE ESTERASE ,URINE TRACE (NEGATIVE); NITRITE,URINE NEGATIVE (NEGATIVE); PH,URINE 6.5 (5 - 7); PROTEIN,URINE DIPSTICK 1+ (NEGATIVE); URINE UROBILINOGEN 0.2 mg/dL (0.2 - 1)
[2023-12-04 17:30] LABS: BACTERIA,URINE FEW /HPF; EPITHELIAL CELLS,URINE FEW /LPF; RBC,URINE 0-5 /HPF (0-5); RENAL EPITHELIAL CELLS,URINE FEW
[2023-12-04] MEDS: SIMETHICONE 80 MG CHEW PO PRN (18:53)
[2023-12-04] MEDS: ACETAMINOPHEN 325 MG TAB PO PRN (18:53)
[2023-12-04] MEDS: BUMETANIDE INJ 0.25MG/ML 4ML VIAL IV ONE ×2 (19:14→22:06)
[2023-12-04] MEDS ORDERED: BUMETANIDE 1 MG TAB PO ONE (19:55)
[2023-12-04] MEDS: SODIUM BICARBONATE 8.4% SYRING 150 ML in DEXTROSE 5% 1,000 ML IV SCH (22:05)
[2023-12-04] MEDS ORDERED: FOLIC ACID IV SCH (23:00)
[2023-12-04] MEDS ORDERED: MULTIVITAMINS IV SCH (23:00)
[2023-12-04] MEDS ORDERED: [UNRECOGNIZED DRUG - OTHER] IV SCH (23:00)
[2023-12-05] VITALS (7 sets, daily range): BP systolic 124–144; BP diastolic 50–75; PULSE 69–102; RESP 16–19; TEMP 97.4–98.9; O2SAT 94–100
[2023-12-05 05:40] LABS: BASOPHILS # (AUTO) 0.1 (0.0-0.1); BASOPHILS % 0.6 % (0.0-1.0); EOSINOPHILS # (AUTO) 0.2 (0.0-0.4); EOSINOPHILS % 1.8 % (0.0-6.0); HEMATOCRIT 33.3 % (34.2-44.1); HEMOGLOBIN 10.8 g/dL (12.0-16.0); LYMPHOCYTES # (AUTO) 2.4 (1.0-3.2); LYMPHOCYTES % 18.6 % (18.0-39.1); MEAN CORPUSCULAR HEMOGLOBIN 29.8 pg (28-32); MEAN CORPUSCULAR HGB CONC 32.4 g/dL (31-35); MONOCYTES # (AUTO) 1.1 (0.2-0.8); MONOCYTES % 8.7 % (4.4-11.3); NEUTROPHILS # (AUTO) 8.9 (2.1-6.9); NEUTROPHILS % 69.8 % (38.7-80.0); PLATELET COUNT 230 x10e3/uL (140-360); RED BLOOD COUNT 3.62 x10e6/uL (3.6-5.1); RED CELL DISTRIBUTION WIDTH 14.9 % (11.7-14.4); WHITE BLOOD COUNT 12.79 x10e3/uL (4.8-10.8)
[2023-12-05 06:01] LABS: ALBUMIN 2.7 g/dL (3.5-5.0); ALBUMIN/GLOBULIN RATIO 0.9 (0.8-2.0); ANION GAP 15.5 mmol/L (8-16); BILIRUBIN,TOTAL 0.4 mg/dL (0.2-1.2); CALCIUM 8.2 mg/dL (8.4-10.2); CREATININE, SERUM 3.52 mg/dL (0.57-1.11); POTASSIUM 3.5 mmol/L (3.5-5.1); TOTAL PROTEIN 5.6 g/dL (6.5-8.1); URIC ACID 9.9 mg/dL (2.6-8.0)
[2023-12-05] MEDS ORDERED: DICYCLOMINE HCL 20 MG TAB ONE ×2 (08:23→10:23)
[2023-12-05] MEDS ORDERED: NIFEDIPINE CR 30 MG TAB ONE (08:23)
[2023-12-05] MEDS ORDERED: METOCLOPRAMIDE HCL 10 MG/2ML VIAL ONE (08:23)
[2023-12-05] MEDS ORDERED: FOLIC ACID 1 MG TAB ONE (08:23)
[2023-12-05] MEDS ORDERED: Sodium Chloride 0.9% 50ML Bag ONE (08:23)
[2023-12-05] MEDS ORDERED: BUMETANIDE INJ 0.25MG/ML 4ML VIAL ONE ×2 (08:23→10:11)
[2023-12-05] MEDS ORDERED: POTASSIUM CHLORIDE 20 MEQ TAB CR PO ONE (08:23)
[2023-12-05] MEDS: POTASSIUM CHLORIDE 20 MEQ TAB CR PO ONE (10:16)
[2023-12-05] MEDS: BUMETANIDE INJ 0.25MG/ML 4ML VIAL IV ONE (10:17)
[2023-12-05] MEDS: SODIUM BICARBONATE 650 MG TAB PO SCH (17:45)
[2023-12-06] VITALS (9 sets, daily range): BP systolic 121–191; BP diastolic 50–91; PULSE 64–82; RESP 16–19; TEMP 98–98.9; O2SAT 94–98
[2023-12-06 05:57] LABS: BASOPHILS # (AUTO) 0.1 (0.0-0.1); BASOPHILS % 0.9 % (0.0-1.0); EOSINOPHILS # (AUTO) 0.4 (0.0-0.4); EOSINOPHILS % 3.2 % (0.0-6.0); HEMATOCRIT 31.6 % (34.2-44.1); HEMOGLOBIN 10.8 g/dL (12.0-16.0); LYMPHOCYTES # (AUTO) 2.7 (1.0-3.2); LYMPHOCYTES % 23.4 % (18.0-39.1); MEAN CORPUSCULAR HGB CONC 34.2 g/dL (31-35); MEAN CORPUSCULAR VOLUME 90.8 fL (81-99); MONOCYTES # (AUTO) 1.1 (0.2-0.8); MONOCYTES % 9.8 % (4.4-11.3); NEUTROPHILS # (AUTO) 7.1 (2.1-6.9); NEUTROPHILS % 62.3 % (38.7-80.0); PLATELET COUNT 213 x10e3/uL (140-360); RED BLOOD COUNT 3.48 x10e6/uL (3.6-5.1); RED CELL DISTRIBUTION WIDTH 14.6 % (11.7-14.4); WHITE BLOOD COUNT 11.37 x10e3/uL (4.8-10.8)
[2023-12-06 06:58] LABS: ALBUMIN 2.7 g/dL (3.5-5.0); ANION GAP 15.7 mmol/L (8-16); BILIRUBIN,TOTAL 0.5 mg/dL (0.2-1.2); CALCIUM 8.2 mg/dL (8.4-10.2); CREATININE, SERUM 3.53 mg/dL (0.57-1.11); POTASSIUM 3.7 mmol/L (3.5-5.1); TOTAL PROTEIN 5.5 g/dL (6.5-8.1)
[2023-12-06] MEDS ORDERED: FOLIC ACID 1 MG TAB PO ONE (08:38)
[2023-12-06] MEDS ORDERED: SODIUM BICARBONATE 650 MG TAB PO ONE (08:38)
[2023-12-06] MEDS ORDERED: DICYCLOMINE HCL 20 MG TAB PO ONE ×2 (08:39→20:40)
[2023-12-06] MEDS ORDERED: NIFEDIPINE CR 30 MG TAB PO ONE (08:39)
[2023-12-06] MEDS ORDERED: Sodium Chloride 0.9% 50ML Bag IV ONE (08:39)
[2023-12-06] MEDS ORDERED: ACETAMINOPHEN 325 MG TAB PO ONE (11:12)
[2023-12-06] MEDS: PROMETHAZINE HCL (IM) 25 MG/ML VIAL IM PRN (17:45)
[2023-12-06] MEDS ORDERED: METOCLOPRAMIDE HCL 10 MG/2ML VIAL IV ONE (20:39)
[2023-12-06] MEDS ORDERED: ZOLPIDEM TARTRATE 10 MG TAB PO ONE (20:40)
[2023-12-07] VITALS (7 sets, daily range): BP systolic 137–168; BP diastolic 51–66; PULSE 68–79; RESP 17–18; TEMP 98–98.8; O2SAT 95–100
[2023-12-07 06:30] LABS: BASOPHILS # (AUTO) 0.1 (0.0-0.1); BASOPHILS % 0.8 % (0.0-1.0); EOSINOPHILS # (AUTO) 0.4 (0.0-0.4); EOSINOPHILS % 3.1 % (0.0-6.0); HEMATOCRIT 35.8 % (34.2-44.1); HEMOGLOBIN 11.6 g/dL (12.0-16.0); LYMPHOCYTES # (AUTO) 3.7 (1.0-3.2); LYMPHOCYTES % 27.4 % (18.0-39.1); MEAN CORPUSCULAR HEMOGLOBIN 30.6 pg (28-32); MEAN CORPUSCULAR HGB CONC 32.4 g/dL (31-35); MEAN CORPUSCULAR VOLUME 94.5 fL (81-99); MONOCYTES # (AUTO) 1.2 (0.2-0.8); MONOCYTES % 8.9 % (4.4-11.3); NEUTROPHILS # (AUTO) 7.9 (2.1-6.9); NEUTROPHILS % 59.4 % (38.7-80.0); PLATELET COUNT 220 x10e3/uL (140-360); RED BLOOD COUNT 3.79 x10e6/uL (3.6-5.1); RED CELL DISTRIBUTION WIDTH 14.2 % (11.7-14.4); WHITE BLOOD COUNT 13.34 x10e3/uL (4.8-10.8)
[2023-12-07 07:24] LABS: ALBUMIN 2.9 g/dL (3.5-5.0); ALBUMIN/GLOBULIN RATIO 0.9 (0.8-2.0); ANION GAP 20.1 mmol/L (8-16); BILIRUBIN,TOTAL 0.5 mg/dL (0.2-1.2); CALCIUM 8.3 mg/dL (8.4-10.2); CREATININE, SERUM 3.71 mg/dL (0.57-1.11); POTASSIUM 4.1 mmol/L (3.5-5.1); TOTAL PROTEIN 6.2 g/dL (6.5-8.1)
[2023-12-07] MEDS: DEXTROSE 5%/0.45% SOD CHL 1,000 ML IV SCH (17:30)
[2023-12-08] VITALS (8 sets, daily range): BP systolic 138–185; BP diastolic 57–84; PULSE 70–81; RESP 17–20; TEMP 97.6–99.8; O2SAT 96–100
[2023-12-08 06:38] LABS: BASOPHILS # (AUTO) 0.1 (0.0-0.1); BASOPHILS % 0.7 % (0.0-1.0); EOSINOPHILS # (AUTO) 0.3 (0.0-0.4); EOSINOPHILS % 3.5 % (0.0-6.0); HEMATOCRIT 30.6 % (34.2-44.1); LYMPHOCYTES # (AUTO) 2.2 (1.0-3.2); LYMPHOCYTES % 27.4 % (18.0-39.1); MEAN CORPUSCULAR HEMOGLOBIN 30.8 pg (28-32); MEAN CORPUSCULAR HGB CONC 32.7 g/dL (31-35); MEAN CORPUSCULAR VOLUME 94.2 fL (81-99); MONOCYTES # (AUTO) 0.7 (0.2-0.8); MONOCYTES % 8.6 % (4.4-11.3); NEUTROPHILS # (AUTO) 4.8 (2.1-6.9); NEUTROPHILS % 59.6 % (38.7-80.0); PLATELET COUNT 173 x10e3/uL (140-360); RED BLOOD COUNT 3.25 x10e6/uL (3.6-5.1); WHITE BLOOD COUNT 8.07 x10e3/uL (4.8-10.8)
[2023-12-08 07:11] LABS: ALBUMIN 2.3 g/dL (3.5-5.0); ALBUMIN/GLOBULIN RATIO 0.9 (0.8-2.0); ANION GAP 14.1 mmol/L (8-16); BILIRUBIN,TOTAL 0.3 mg/dL (0.2-1.2); CALCIUM 7.4 mg/dL (8.4-10.2); CREATININE, SERUM 3.45 mg/dL (0.57-1.11)
[2023-12-08 07:20] LABS: POTASSIUM 3.1 mmol/L (3.5-5.1)
[2023-12-08] MEDS: FOLIC ACID 1 MG TAB ONE (08:29)
[2023-12-08] MEDS: METOCLOPRAMIDE HCL 10 MG/2ML VIAL ONE (08:29)
[2023-12-08] MEDS: NIFEDIPINE CR 30 MG TAB ONE (08:30)
[2023-12-08] MEDS: NIFEDIPINE CR 30 MG TAB PO SCH (17:19)
[2023-12-08] MEDS: POTASSIUM CHLORIDE 20 MEQ TAB CR PO ONE (17:19)
[2023-12-09] VITALS (7 sets, daily range): BP systolic 130–152; BP diastolic 62–74; PULSE 76–92; RESP 16–17; TEMP 97.8–98.7; O2SAT 97–100
[2023-12-09 08:10] LABS: BASOPHILS # (AUTO) 0.1 (0.0-0.1); BASOPHILS % 0.7 % (0.0-1.0); EOSINOPHILS # (AUTO) 0.3 (0.0-0.4); EOSINOPHILS % 2.6 % (0.0-6.0); HEMATOCRIT 32.6 % (34.2-44.1); HEMOGLOBIN 10.4 g/dL (12.0-16.0); LYMPHOCYTES # (AUTO) 2.5 (1.0-3.2); LYMPHOCYTES % 23.7 % (18.0-39.1); MEAN CORPUSCULAR HEMOGLOBIN 29.9 pg (28-32); MEAN CORPUSCULAR HGB CONC 31.9 g/dL (31-35); MEAN CORPUSCULAR VOLUME 93.7 fL (81-99); MONOCYTES # (AUTO) 0.9 (0.2-0.8); MONOCYTES % 8.3 % (4.4-11.3); NEUTROPHILS # (AUTO) 6.8 (2.1-6.9); PLATELET COUNT 189 x10e3/uL (140-360); RED BLOOD COUNT 3.48 x10e6/uL (3.6-5.1); RED CELL DISTRIBUTION WIDTH 13.8 % (11.7-14.4); WHITE BLOOD COUNT 10.61 x10e3/uL (4.8-10.8)
[2023-12-09 08:21] LABS: ALBUMIN 2.4 g/dL (3.5-5.0); ALBUMIN/GLOBULIN RATIO 0.8 (0.8-2.0); ANION GAP 14.4 mmol/L (8-16); BILIRUBIN,TOTAL 0.3 mg/dL (0.2-1.2); CALCIUM 7.4 mg/dL (8.4-10.2); CREATININE, SERUM 3.06 mg/dL (0.57-1.11); POTASSIUM 3.4 mmol/L (3.5-5.1); TOTAL PROTEIN 5.4 g/dL (6.5-8.1)
[2023-12-09] MEDS: POTASSIUM CHLORIDE 20 MEQ TAB CR PO ONE (09:40)
[2023-12-09] MEDS ORDERED: PROMETHAZINE 12.5MG/ NACL 0.9% 12.5 MG/50 ML BAG IV PRN (10:30)
[2023-12-09] MEDS: [UNRECOGNIZED DRUG - OTHER] IV PRN (12:15)
[2023-12-09] MEDS: PROMETHAZINE IV PRN (12:15)
[2023-12-10] VITALS: BP 139/61; PULSE 84; RESP 16; TEMP 97.7; O2SAT 97
[2023-12-10 05:28] LABS: BASOPHILS # (AUTO) 0.1 (0.0-0.1); BASOPHILS % 0.6 % (0.0-1.0); EOSINOPHILS # (AUTO) 0.2 (0.0-0.4); EOSINOPHILS % 2.4 % (0.0-6.0); HEMATOCRIT 30.1 % (34.2-44.1); HEMOGLOBIN 9.4 g/dL (12.0-16.0); LYMPHOCYTES % 22.1 % (18.0-39.1); MEAN CORPUSCULAR HEMOGLOBIN 29.8 pg (28-32); MEAN CORPUSCULAR HGB CONC 31.2 g/dL (31-35); MEAN CORPUSCULAR VOLUME 95.6 fL (81-99); MONOCYTES # (AUTO) 0.8 (0.2-0.8); MONOCYTES % 9.2 % (4.4-11.3); NEUTROPHILS # (AUTO) 5.9 (2.1-6.9); NEUTROPHILS % 65.5 % (38.7-80.0); PLATELET COUNT 176 x10e3/uL (140-360); RED BLOOD COUNT 3.15 x10e6/uL (3.6-5.1); RED CELL DISTRIBUTION WIDTH 13.7 % (11.7-14.4); WHITE BLOOD COUNT 9.02 x10e3/uL (4.8-10.8)
[2023-12-10 05:29] VITALS: BP 128/53; PULSE 77; RESP 18; TEMP 97.3; O2SAT 96
[2023-12-10 06:34] LABS: ALBUMIN 2.2 g/dL (3.5-5.0); ALBUMIN/GLOBULIN RATIO 0.8 (0.8-2.0); ANION GAP 14.3 mmol/L (8-16); BILIRUBIN,TOTAL 0.4 mg/dL (0.2-1.2); CREATININE, SERUM 2.9 mg/dL (0.57-1.11); TOTAL PROTEIN 4.8 g/dL (6.5-8.1)
[2023-12-10 06:35] LABS: POTASSIUM 3.3 mmol/L (3.5-5.1)
[2023-12-10 08:26] VITALS: BP 154/75; PULSE 75; RESP 18; TEMP 98.4; O2SAT 100
[2023-12-10 09:12] VITALS: BP 154/75; PULSE 75; RESP 18; TEMP 98.4; O2SAT 100
[2023-12-10 09:39] VITALS: BP 154/75; PULSE 75
== END 2023-12-10 11:07 | disposition home or self-care (01) | DRG 683 ==
LOC: FSED 14:50 → ERHOLD 18:03 → MED/SURG3 19:37
PROVIDERS: ADMIT Internal Medicine; ATTEND Internal Medicine
PROC: 30233N1 Transfusion of Nonautologous Red Blood Cells into Peripheral Vein, Percutaneous Approach (ICD-10-PCS; principal; 2023-12-03)
DX: N17.0 Acute kidney failure with tubular necrosis (principal); E44.0 Moderate protein-calorie malnutrition; E87.20 Acidosis, unspecified; K56.609 Unspecified intestinal obstruction, unspecified as to partial versus complete obstruction; Z68.1 Body mass index [BMI] 19.9 or less, adult; I12.9 Hypertensive chronic kidney disease with stage 1 through stage 4 chronic kidney disease, or unspecified chronic kidney disease; E11.22 Type 2 diabetes mellitus with diabetic chronic kidney disease; N18.4 Chronic kidney disease, stage 4 (severe); N17.9 Acute kidney failure, unspecified; D63.1 Anemia in chronic kidney disease; E86.0 Dehydration; K52.9 Noninfective gastroenteritis and colitis, unspecified; D50.0 Iron deficiency anemia secondary to blood loss (chronic); K29.80 Duodenitis without bleeding; K21.9 Gastro-esophageal reflux disease without esophagitis; R15.9 Full incontinence of feces; E03.9 Hypothyroidism, unspecified; R94.31 Abnormal electrocardiogram [ECG] [EKG]; R53.81 Other malaise; M19.90 Unspecified osteoarthritis, unspecified site; E53.8 Deficiency of other specified B group vitamins; Z79.890 Hormone replacement therapy; Z85.42 Personal history of malignant neoplasm of other parts of uterus; Z92.3 Personal history of irradiation; Z90.49 Acquired absence of other specified parts of digestive tract; Z90.710 Acquired absence of both cervix and uterus
CPT/HCPCS: 0223U; 36415; 71045; 71250; 74176; 76770; 80048; 80053; 80076; 81001; 81003; 82553; 82607; 82746; 82948; 83540; 83735; 83880; 84100; 84466; 84484; 84550; 85025; 85045; 86140; 86850; 86900; 86920; 93005; 99284; J0694; J2550; J2765; J7030; J7070; P9016

== ENCOUNTER 2024-02-28 12:29 | Inpatient (IN) | payer MEDICARE ==
[~2024-02-28] VITALS: Ht 154.9 cm; Wt 54.9 kg
[~2024-02-28 12:29] MED LIST changes: +CARAFATE1 GM/10 ML PO; +DICYCLOMINE HCL20 MG PO; +MAGOX 400400 MG PO; +ONDANSETRON ODT8 MG PO
[2024-02-28 12:34] VITALS: TEMP 98.4
[2024-02-28 13:51] LABS: BASOPHILS # (AUTO) 0.1 (0.0-0.1); BASOPHILS % 0.7 % (0.0-1.0); EOSINOPHILS # (AUTO) 0.1 (0.0-0.4); EOSINOPHILS % 1.5 % (0.0-6.0); HEMATOCRIT 37.4 % (34.2-44.1); HEMOGLOBIN 12.4 g/dL (12.0-16.0); LYMPHOCYTES # (AUTO) 1.8 (1.0-3.2); LYMPHOCYTES % 21.3 % (18.0-39.1); MEAN CORPUSCULAR HEMOGLOBIN 30.5 pg (28-32); MEAN CORPUSCULAR HGB CONC 33.2 g/dL (31-35); MEAN CORPUSCULAR VOLUME 92.1 fL (81-99); MONOCYTES # (AUTO) 0.4 (0.2-0.8); MONOCYTES % 5.4 % (4.4-11.3); NEUTROPHILS # (AUTO) 5.8 (2.1-6.9); NEUTROPHILS % 70.7 % (38.7-80.0); PLATELET COUNT 191 x10e3/uL (140-360); RED BLOOD COUNT 4.06 x10e6/uL (3.6-5.1); RED CELL DISTRIBUTION WIDTH 16.7 % (11.7-14.4); WHITE BLOOD COUNT 8.22 x10e3/uL (4.8-10.8)
[2024-02-28] MEDS: SODIUM CHLORIDE 0.9% 1000ML 1,000 ML IV ONE (13:54)
[2024-02-28] MEDS: ONDANSETRON HCL INJ 2MG/ML 2ML 2 MG/ML VIAL IV ONE (13:54)
[2024-02-28 13:55] LABS: INR 0.88; PROTHROMBIN TIME 12.6 seconds (11.9-14.5)
[2024-02-28 13:56] LABS: PARTIAL THROMBOPLASTIN TIME 30.9 seconds (23.8-35.5)
[2024-02-28] MEDS ORDERED: MAGNESIUM SULFATE 2GM/50ML 50 ML IV ONE (15:00)
[2024-02-28 15:05] LABS: ANION GAP 18.8 mmol/L (8-16); BILIRUBIN,TOTAL 0.6 mg/dL (0.2-1.2); CALCIUM 8.4 mg/dL (8.4-10.2); CREATININE, SERUM 2.66 mg/dL (0.57-1.11); MAGNESIUM 1.5 MG/DL (1.3-2.1); POTASSIUM 3.8 mmol/L (3.5-5.1)
[2024-02-28 15:06] LABS: ALBUMIN 2.8 g/dL (3.5-5.0); ALBUMIN/GLOBULIN RATIO 0.9 (0.8-2.0); TOTAL PROTEIN 5.8 g/dL (6.5-8.1); TROPONIN I 0.022 ng/mL (0-0.300)
[2024-02-28] MEDS ORDERED: ONDANSETRON HCL INJ 2MG/ML 2ML 2 MG/ML VIAL IV PRN (15:15)
[2024-02-28 15:30] LABS: BILIRUBIN,URINE SMALL (NEGATIVE); CLARITY,URINE SL CLOUDY (CLEAR); COLOR,URINE YELLOW (YELLOW); GLUCOSE, URINE NEGATIVE (NEGATIVE); KETONES,URINE TRACE (NEGATIVE); LEUKOCYTE ESTERASE ,URINE TRACE (NEGATIVE); NITRITE,URINE NEGATIVE (NEGATIVE); PH,URINE 5.5 (5 - 7); PROTEIN,URINE DIPSTICK NEGATIVE (NEGATIVE); URINE UROBILINOGEN 0.2 mg/dL (0.2 - 1)
[2024-02-28 15:31] LABS: AMORPHOUS SEDIMENT,URINE FEW (FEW); BACTERIA,URINE MODERATE /HPF
[2024-02-28] MEDS: MAGNESIUM SULF 1GRAM/DEXTROSE 100 ML IV ONE (15:42)
[2024-02-28 15:47] VITALS: PULSE 62; RESP 16
[2024-02-28] MEDS ORDERED: Vancomycin IV 1 GM in SODIUM CHLORIDE 0.9% 250ML 250 ML IV ONE (16:00)
[2024-02-28 16:56] VITALS: BP 164/71; PULSE 64; RESP 18; TEMP 97.8; O2SAT 100
[2024-02-28 17:48] VITALS: BP 164/71; PULSE 64; RESP 18; TEMP 97.8; O2SAT 100
[2024-02-28 17:52] VITALS: BP 164/71; PULSE 64; RESP 18; TEMP 97.8; O2SAT 100
[2024-02-28] MEDS: Vancomycin IV 1 GM in SODIUM CHLORIDE 0.9% 250ML 250 ML IV ONE (18:11)
[2024-02-28] MEDS: SODIUM CHLORIDE 0.9% 1000ML 1,000 ML IV SCH (18:12)
[2024-02-28 20:34] VITALS: BP 163/74; PULSE 60; RESP 17; TEMP 97.7; O2SAT 100
[2024-02-28] MEDS: ZOLPIDEM TARTRATE 5 MG TAB PO PRN (21:49)
[2024-02-29] VITALS (8 sets, daily range): BP systolic 144–211; BP diastolic 63–77; PULSE 59–97; RESP 16–20; TEMP 97.6–98.3; O2SAT 97–100
[2024-02-29] MEDS ORDERED: ONDANSETRON HCL INJ 2MG/ML 2ML 2 MG/ML VIAL IV PRN (04:45)
[2024-02-29 06:33] LABS: RED BLOOD COUNT 3.25 x10e6/uL (3.6-5.1); WHITE BLOOD COUNT 6.31 x10e3/uL (4.8-10.8)
[2024-02-29 06:34] LABS: BASOPHILS % 0.6 % (0.0-1.0); EOSINOPHILS # (AUTO) 0.2 (0.0-0.4); EOSINOPHILS % 3.2 % (0.0-6.0); HEMATOCRIT 30.7 % (34.2-44.1); HEMOGLOBIN 9.9 g/dL (12.0-16.0); LYMPHOCYTES # (AUTO) 1.5 (1.0-3.2); LYMPHOCYTES % 23.8 % (18.0-39.1); MEAN CORPUSCULAR HEMOGLOBIN 30.5 pg (28-32); MEAN CORPUSCULAR HGB CONC 32.2 g/dL (31-35); MEAN CORPUSCULAR VOLUME 94.5 fL (81-99); MONOCYTES # (AUTO) 0.4 (0.2-0.8); MONOCYTES % 6.5 % (4.4-11.3); NEUTROPHILS # (AUTO) 4.1 (2.1-6.9); NEUTROPHILS % 65.4 % (38.7-80.0); PLATELET COUNT 153 x10e3/uL (140-360); RED CELL DISTRIBUTION WIDTH 16.8 % (11.7-14.4)
[2024-02-29] MEDS: LEVOTHYROXINE SODIUM 50 MCG TAB PO SCH (06:40)
[2024-02-29 07:23] LABS: ANION GAP 16.3 mmol/L (8-16); POTASSIUM 3.3 mmol/L (3.5-5.1)
[2024-02-29 07:24] LABS: BILIRUBIN,TOTAL 0.3 mg/dL (0.2-1.2); CALCIUM 7.1 mg/dL (8.4-10.2); CREATININE, SERUM 2.13 mg/dL (0.57-1.11); TOTAL PROTEIN 4.1 g/dL (6.5-8.1)
[2024-02-29 08:41] LABS: TROPONIN I 0.018 ng/mL (0-0.300)
[2024-02-29] MEDS: MONTELUKAST SODIUM 10 MG TAB PO SCH (09:00)
[2024-02-29] MEDS: HYDRALAZINE HCL 20 MG/ML VIAL IV PRN (13:58)
[2024-02-29 16:21] LABS: TROPONIN I 0.02 ng/mL (0-0.300)
[2024-02-29] MEDS: SODIUM BICARBONATE 8.4% VIAL 100 ML in DEXTROSE 5% 1,000 ML IV SCH (17:47)
[2024-02-29] MEDS: CITALOPRAM HYDROBROMIDE 20 MG TAB PO SCH (20:22)
[2024-03-01] VITALS (7 sets, daily range): BP systolic 137–190; BP diastolic 52–85; PULSE 63–67; RESP 16–20; TEMP 98.1–98.6; O2SAT 99–100
[2024-03-01] MEDS ORDERED: ALPRAZOLAM 0.25 MG TAB PO PRN (09:15)
[2024-03-01] MEDS: ACETAMINOPHEN 325 MG TAB PO PRN (13:58)
[2024-03-01] MEDS: ALPRAZOLAM 0.25 MG TAB PO PRN ×2 (14:14→20:24)
[2024-03-01 17:42] LABS: BASOPHILS # (AUTO) 0.1 (0.0-0.1); BASOPHILS % 0.6 % (0.0-1.0); EOSINOPHILS # (AUTO) 0.1 (0.0-0.4); EOSINOPHILS % 1.2 % (0.0-6.0); HEMATOCRIT 32.9 % (34.2-44.1); HEMOGLOBIN 11.5 g/dL (12.0-16.0); LYMPHOCYTES # (AUTO) 1.7 (1.0-3.2); LYMPHOCYTES % 16.2 % (18.0-39.1); MEAN CORPUSCULAR HEMOGLOBIN 30.7 pg (28-32); MONOCYTES # (AUTO) 0.7 (0.2-0.8); MONOCYTES % 6.4 % (4.4-11.3); NEUTROPHILS # (AUTO) 7.7 (2.1-6.9); NEUTROPHILS % 75.1 % (38.7-80.0); PLATELET COUNT 203 x10e3/uL (140-360); RED BLOOD COUNT 3.74 x10e6/uL (3.6-5.1); RED CELL DISTRIBUTION WIDTH 16.6 % (11.7-14.4); WHITE BLOOD COUNT 10.29 x10e3/uL (4.8-10.8)
[2024-03-01 18:06] LABS: ALBUMIN 2.3 g/dL (3.5-5.0); ALBUMIN/GLOBULIN RATIO 0.9 (0.8-2.0); ANION GAP 18.6 mmol/L (8-16); BILIRUBIN,TOTAL 0.3 mg/dL (0.2-1.2); CALCIUM 7.6 mg/dL (8.4-10.2); CREATININE, SERUM 1.77 mg/dL (0.57-1.11); TOTAL PROTEIN 4.9 g/dL (6.5-8.1)
[2024-03-01 18:15] LABS: POTASSIUM 2.6 mmol/L (3.5-5.1)
[2024-03-01] MEDS: POTASSIUM CHLORIDE 20 MEQ TAB CR PO ONE (20:25)
[2024-03-01] MEDS: POTASSIUM CHLORIDE 20MEQ/100ML 100 ML IV ONE (20:26)
[2024-03-01] MEDS: MAALOX/LIDOCAINE/BENADRYL/NYST 30 ML BTL PO SCH (21:00)
[2024-03-02] VITALS (9 sets, daily range): BP systolic 126–188; BP diastolic 60–80; PULSE 63–92; RESP 16–18; TEMP 98.1–99.3; O2SAT 97–100
[2024-03-02 09:23] LABS: CALCIUM 7.5 mg/dL (8.4-10.2); CREATININE, SERUM 1.61 mg/dL (0.57-1.11)
[2024-03-02] MEDS: ATENOLOL 50 MG TAB PO SCH (10:20)
[2024-03-02] MEDS: ONDANSETRON HCL 4 MG ORAL DISINTEGRATING TAB PO PRN (10:21)
[2024-03-02] MEDS: CHLORTHALIDONE 25 MG TAB PO SCH (11:08)
[2024-03-02] MEDS: CLONIDINE HCL 0.1 MG TAB PO ONE (14:06)
[2024-03-02] MEDS: D5.45%NS/KCL 20MEQ 1,000 ML IV SCH (15:29)
[2024-03-02] MEDS: ACETAMINOPHEN 325 MG TAB PO PRN (15:31)
[2024-03-02] MEDS: CLONIDINE HCL 0.2 MG TAB PO SCH (20:32)
[2024-03-02] MEDS: LISINOPRIL 20 MG TAB PO SCH (20:33)
[2024-03-03] VITALS (8 sets, daily range): BP systolic 120–177; BP diastolic 59–86; PULSE 59–87; RESP 16–22; TEMP 97.5–98.6; O2SAT 96–100
[2024-03-03 05:02] LABS: EOSINOPHILS # (AUTO) 0.2 (0.0-0.4); EOSINOPHILS % 3.9 % (0.0-6.0); HEMATOCRIT 26.3 % (34.2-44.1); LYMPHOCYTES # (AUTO) 1.2 (1.0-3.2); LYMPHOCYTES % 28.6 % (18.0-39.1); MEAN CORPUSCULAR HEMOGLOBIN 30.9 pg (28-32); MEAN CORPUSCULAR HGB CONC 34.2 g/dL (31-35); MEAN CORPUSCULAR VOLUME 90.4 fL (81-99); MONOCYTES # (AUTO) 0.4 (0.2-0.8); MONOCYTES % 8.5 % (4.4-11.3); NEUTROPHILS # (AUTO) 2.4 (2.1-6.9); NEUTROPHILS % 57.8 % (38.7-80.0); PLATELET COUNT 131 x10e3/uL (140-360); RED BLOOD COUNT 2.91 x10e6/uL (3.6-5.1); RED CELL DISTRIBUTION WIDTH 16.7 % (11.7-14.4); WHITE BLOOD COUNT 4.13 x10e3/uL (4.8-10.8)
[2024-03-03 05:10] LABS: INR 1.08; PROTHROMBIN TIME 14.8 seconds (11.9-14.5)
[2024-03-03 05:41] LABS: ALBUMIN 1.7 g/dL (3.5-5.0); ALBUMIN/GLOBULIN RATIO 0.9 (0.8-2.0); ANION GAP 8.8 mmol/L (8-16); BILIRUBIN,TOTAL 0.2 mg/dL (0.2-1.2); CREATININE, SERUM 1.58 mg/dL (0.57-1.11); TOTAL PROTEIN 3.7 g/dL (6.5-8.1)
[2024-03-03 05:43] LABS: CALCIUM 6.3 mg/dL (8.4-10.2); POTASSIUM 2.8 mmol/L (3.5-5.1)
[2024-03-03] MEDS: POTASSIUM CHLORIDE 20MEQ/100ML 200 ML IV ONE (08:01)
[2024-03-03] MEDS ORDERED: ETOMIDATE 2 MG/ML 10 ML INJ IV ONE (12:05)
[2024-03-03] MEDS ORDERED: LABETALOL HCL 5 MG/ML 20ML VIAL ONE (12:05)
[2024-03-03] MEDS ORDERED: LIDOCAINE HCL 2% LOCAL INJ 5 ML SDV VIAL INJ ONE (12:05)
[2024-03-03] MEDS ORDERED: ONDANSETRON HCL INJ 2MG/ML 2ML 2 MG/ML VIAL ONE (12:05)
[2024-03-03] MEDS ORDERED: SEVOFLURANE INHAL SOLN 250 ML PEN BTL ONE (12:05)
[2024-03-03] MEDS ORDERED: SUCCINYLCHOLINE CHLORIDE 20 MG/ML 10ML VIAL ONE (12:05)
[2024-03-03] MEDS ORDERED: FENTANYL CITRATE/PF 100MCG/2 ML INJ ONE (13:18)
[2024-03-03] MEDS: POTASSIUM CHLORIDE 20MEQ/100ML 100 ML IV ONE (17:19)
[2024-03-03] MEDS: PROMETHAZINE 12.5MG/ NACL 0.9% 12.5 MG/50 ML BAG IV PRN (20:07)
[2024-03-03] MEDS: METOCLOPRAMIDE HCL 10 MG/2ML VIAL IV ONE (22:56)
[2024-03-04] VITALS (7 sets, daily range): BP systolic 96–143; BP diastolic 46–85; PULSE 72–78; RESP 18–20; TEMP 97.9–98.3; O2SAT 96–98
[2024-03-04 05:48] LABS: BASOPHILS % 0.5 % (0.0-1.0); EOSINOPHILS % 0.4 % (0.0-6.0); HEMATOCRIT 35.2 % (34.2-44.1); HEMOGLOBIN 11.6 g/dL (12.0-16.0); LYMPHOCYTES # (AUTO) 0.7 (1.0-3.2); LYMPHOCYTES % 8.5 % (18.0-39.1); MEAN CORPUSCULAR HEMOGLOBIN 30.5 pg (28-32); MEAN CORPUSCULAR VOLUME 92.6 fL (81-99); MONOCYTES # (AUTO) 0.6 (0.2-0.8); MONOCYTES % 7.3 % (4.4-11.3); NEUTROPHILS # (AUTO) 6.8 (2.1-6.9); NEUTROPHILS % 83.1 % (38.7-80.0); PLATELET COUNT 155 x10e3/uL (140-360); RED CELL DISTRIBUTION WIDTH 16.6 % (11.7-14.4)
[2024-03-04 05:51] LABS: WHITE BLOOD COUNT 8.21 x10e3/uL (4.8-10.8)
[2024-03-04 06:13] LABS: ALBUMIN 1.9 g/dL (3.5-5.0); ALBUMIN/GLOBULIN RATIO 0.8 (0.8-2.0); ANION GAP 15.2 mmol/L (8-16); BILIRUBIN,TOTAL 0.3 mg/dL (0.2-1.2); CREATININE, SERUM 1.97 mg/dL (0.57-1.11); POTASSIUM 4.2 mmol/L (3.5-5.1); TOTAL PROTEIN 4.2 g/dL (6.5-8.1)
[2024-03-04 06:35] LABS: CALCIUM 6.4 mg/dL (8.4-10.2); MAGNESIUM 0.9 MG/DL (1.3-2.1)
[2024-03-04] MEDS: MAGNESIUM SULFATE 2GM/50ML 50 ML IV ONE ×2 (08:01→13:58)
[2024-03-04] MEDS: CALCIUM GLUC 1 G/50 ML NACL 50 ML IV ONE ×2 (10:15→13:58)
[2024-03-04] MEDS: HYDROCODONE/APAP 10MG-325MG TAB PO PRN (19:28)
[2024-03-04] MEDS: ONDANSETRON HCL INJ 2MG/ML 2ML 2 MG/ML VIAL IV PRN (22:55)
[2024-03-04] MEDS: Morphine 2mg Syringe 2 MG/ML SYR IV PRN (22:55)
[2024-03-05] VITALS (87 sets, daily range): BP systolic 81–133; BP diastolic 34–69; PULSE 65–99; RESP 14–33; TEMP 97.7–99.7; O2SAT 93–99
[2024-03-05] MEDS: SODIUM CHLORIDE 0.9% 1000ML 1,000 ML IV SCH ×2 (00:13→05:03)
[2024-03-05] MEDS: SODIUM CHLORIDE 0.9% 500ML 500 ML IV ONE ×3 (02:39→08:13)
[2024-03-05 08:08] LABS: ALBUMIN 1.8 g/dL (3.5-5.0); ALBUMIN/GLOBULIN RATIO 0.6 (0.8-2.0); BILIRUBIN,TOTAL 0.3 mg/dL (0.2-1.2); CALCIUM 7.2 mg/dL (8.4-10.2); CREATININE, SERUM 2.61 mg/dL (0.57-1.11); POTASSIUM 4.8 mmol/L (3.5-5.1); TOTAL PROTEIN 4.6 g/dL (6.5-8.1)
[2024-03-05 08:26] LABS: BASOPHILS % 0.2 % (0.0-1.0); EOSINOPHILS % 0.1 % (0.0-6.0); HEMATOCRIT 26.5 % (34.2-44.1); HEMOGLOBIN 8.7 g/dL (12.0-16.0); LYMPHOCYTES # (AUTO) 0.4 (1.0-3.2); LYMPHOCYTES % 4.3 % (18.0-39.1); MEAN CORPUSCULAR HEMOGLOBIN 30.5 pg (28-32); MEAN CORPUSCULAR HGB CONC 32.8 g/dL (31-35); MONOCYTES # (AUTO) 0.6 (0.2-0.8); MONOCYTES % 6.7 % (4.4-11.3); NEUTROPHILS # (AUTO) 8.1 (2.1-6.9); NEUTROPHILS % 88.4 % (38.7-80.0); PLATELET COUNT 137 x10e3/uL (140-360); RED BLOOD COUNT 2.85 x10e6/uL (3.6-5.1); RED CELL DISTRIBUTION WIDTH 16.9 % (11.7-14.4); WHITE BLOOD COUNT 9.22 x10e3/uL (4.8-10.8)
[2024-03-05] MEDS: NOREPINEPHRINE 8 MG/D5W 250 ML 250 ML IV PRN (08:42)
[2024-03-05 08:47] LABS: ANION GAP 9.8 mmol/L (8-16)
[2024-03-05] MEDS ORDERED: ATENOLOL 50 MG TAB PO SCH (09:00)
[2024-03-05] MEDS: MUPIROCIN 2% OINT 22 GM TUBE TOP SCH (09:00)
[2024-03-05 09:10] LABS: LYMPHOCYTES % (MANUAL) 6 % (19-48); MONOCYTES % (MANUAL) 2 % (3.4-9.0); NEUTROPHILS % (MANUAL) 92 % (40-74)
[2024-03-05 09:11] LABS: PLATELET ESTIMATE SLIGHTLY DECREASED; PLATELET MORPHOLOGY COMMENT NORMAL; RBC MORPHOLOGY COMMENT NORMAL
[2024-03-05] MEDS: SODIUM CHLORIDE 0.9% 1000ML 1,000 ML IV ONE (14:55)
[2024-03-05] MEDS: PIPERACILLIN/TAZOBACTAM 4.5 GM in SODIUM CHLORIDE 0.9% 100 ML IV SCH (15:19)
[2024-03-05] MEDS ORDERED: ACETAMINOPHEN 1000 MG/100 ML IV PRN (16:45)
[2024-03-05] MEDS: ACETAMINOPHEN 1000 MG/100 ML IV PRN (17:01)
[2024-03-05 17:30] LABS: CREATININE, SERUM 2.47 mg/dL (0.57-1.11); POTASSIUM 3.5 mmol/L (3.5-5.1)
[2024-03-05 17:42] LABS: ANION GAP 12.5 mmol/L (8-16)
[2024-03-05] MEDS: BUMETANIDE INJ 0.25MG/ML 4ML VIAL IV ONE (18:02)
[2024-03-05] MEDS: SODIUM BICARBONATE 8.4% VIAL 150 ML in DEXTROSE 5% 1,000 ML IV SCH (18:29)
[2024-03-05] MEDS: CENTRAL TPN FORMULA 1 BAG IV SCH (20:00)
[2024-03-06] VITALS (71 sets, daily range): BP systolic 101–168; BP diastolic 44–75; PULSE 59–99; RESP 12–25; TEMP 97.1–99.1; O2SAT 96–99
[2024-03-06 06:33] LABS: BASOPHILS # (AUTO) 0.1 (0.0-0.1); BASOPHILS % 0.4 % (0.0-1.0); EOSINOPHILS # (AUTO) 0.1 (0.0-0.4); EOSINOPHILS % 0.8 % (0.0-6.0); HEMOGLOBIN 8.8 g/dL (12.0-16.0); LYMPHOCYTES # (AUTO) 0.8 (1.0-3.2); MEAN CORPUSCULAR HEMOGLOBIN 30.6 pg (28-32); MEAN CORPUSCULAR HGB CONC 32.6 g/dL (31-35); MEAN CORPUSCULAR VOLUME 93.8 fL (81-99); MONOCYTES # (AUTO) 0.6 (0.2-0.8); MONOCYTES % 4.9 % (4.4-11.3); NEUTROPHILS # (AUTO) 10.8 (2.1-6.9); NEUTROPHILS % 85.3 % (38.7-80.0); PLATELET COUNT 131 x10e3/uL (140-360); RED BLOOD COUNT 2.88 x10e6/uL (3.6-5.1); RED CELL DISTRIBUTION WIDTH 17.2 % (11.7-14.4); WHITE BLOOD COUNT 12.65 x10e3/uL (4.8-10.8)
[2024-03-06 06:53] LABS: ALBUMIN 1.4 g/dL (3.5-5.0); ALBUMIN/GLOBULIN RATIO 0.5 (0.8-2.0); ANION GAP 12.3 mmol/L (8-16); BILIRUBIN,TOTAL 0.3 mg/dL (0.2-1.2); CREATININE, SERUM 2.63 mg/dL (0.57-1.11)
[2024-03-06 07:06] LABS: POTASSIUM 3.3 mmol/L (3.5-5.1)
[2024-03-06 07:07] LABS: CALCIUM 6.9 mg/dL (8.4-10.2)
[2024-03-06] MEDS: POTASSIUM CHLORIDE 20MEQ/100ML 100 ML IV ONE (08:24)
[2024-03-06] MEDS: MAGNESIUM SULFATE 2GM/50ML 50 ML IV ONE (08:24)
[2024-03-06 08:32] LABS: BAND NEUTROPHILS % (MANUAL) 4 %; LYMPHOCYTES % (MANUAL) 3 % (19-48); MONOCYTES % (MANUAL) 8 % (3.4-9.0); NEUTROPHILS % (MANUAL) 85 % (40-74); PLATELET ESTIMATE SLIGHTLY DECREASED; PLATELET MORPHOLOGY COMMENT NORMAL; RBC MORPHOLOGY COMMENT NORMAL
[2024-03-06] MEDS: BUMETANIDE INJ 0.25MG/ML 4ML VIAL IV ONE (10:24)
[2024-03-06] MEDS: SODIUM BICARBONATE 8.4% SYRING 150 ML in STERILE WATER IV SOLN 1,000 ML IV SCH (11:34)
[2024-03-06] MEDS ORDERED: METRONIDAZOLE 500MG/NS 100ML 100 ML IV SCH (14:00)
[2024-03-06] MEDS: ACETAMINOPHEN 1000 MG/100 ML IV PRN (19:47)
[2024-03-06] MEDS: CENTRAL TPN FORMULA 1 BAG IV SCH (19:48)
[2024-03-07] VITALS (46 sets, daily range): BP systolic 115–184; BP diastolic 49–112; PULSE 59–78; RESP 12–25; TEMP 96.9–97.8; O2SAT 95–100
[2024-03-07 06:01] LABS: BASOPHILS % 0.4 % (0.0-1.0); EOSINOPHILS # (AUTO) 0.3 (0.0-0.4); EOSINOPHILS % 3.2 % (0.0-6.0); HEMATOCRIT 25.8 % (34.2-44.1); HEMOGLOBIN 8.5 g/dL (12.0-16.0); LYMPHOCYTES # (AUTO) 0.9 (1.0-3.2); LYMPHOCYTES % 9.3 % (18.0-39.1); MEAN CORPUSCULAR HEMOGLOBIN 30.5 pg (28-32); MEAN CORPUSCULAR HGB CONC 32.9 g/dL (31-35); MEAN CORPUSCULAR VOLUME 92.5 fL (81-99); MONOCYTES # (AUTO) 0.3 (0.2-0.8); MONOCYTES % 2.9 % (4.4-11.3); NEUTROPHILS # (AUTO) 7.8 (2.1-6.9); NEUTROPHILS % 83.9 % (38.7-80.0); PLATELET COUNT 122 x10e3/uL (140-360); RED BLOOD COUNT 2.79 x10e6/uL (3.6-5.1); RED CELL DISTRIBUTION WIDTH 16.9 % (11.7-14.4); WHITE BLOOD COUNT 9.34 x10e3/uL (4.8-10.8)
[2024-03-07 06:35] LABS: ALBUMIN 1.3 g/dL (3.5-5.0); ALBUMIN/GLOBULIN RATIO 0.5 (0.8-2.0); ANION GAP 10.1 mmol/L (8-16); BILIRUBIN,TOTAL 0.2 mg/dL (0.2-1.2); CALCIUM 7.4 mg/dL (8.4-10.2); CREATININE, SERUM 2.61 mg/dL (0.57-1.11); MAGNESIUM 2.2 MG/DL (1.3-2.1); POTASSIUM 4.1 mmol/L (3.5-5.1); TOTAL PROTEIN 3.8 g/dL (6.5-8.1)
[2024-03-07 07:37] LABS: BAND NEUTROPHILS % (MANUAL) 1 %; EOSINOPHILS % (MANUAL) 4 % (0-7); LYMPHOCYTES % (MANUAL) 8 % (19-48); NEUTROPHILS % (MANUAL) 86 % (40-74); PLATELET ESTIMATE SLIGHTLY DECREASED; PLATELET MORPHOLOGY COMMENT NORMAL; RBC MORPHOLOGY COMMENT NORMAL; REACTIVE LYMPHOCYTES 1
[2024-03-07] MEDS: METOCLOPRAMIDE HCL 10 MG/2ML VIAL IV PRN (09:28)
[2024-03-07] MEDS: CENTRAL TPN FORMULA 1 BAG IV SCH (20:45)
[2024-03-07] MEDS: ACETAMINOPHEN 1000 MG/100 ML IV PRN (20:59)
[2024-03-07] MEDS: ZOLPIDEM TARTRATE 5 MG TAB PO PRN (23:00)
[2024-03-08] VITALS (33 sets, daily range): BP systolic 88–191; BP diastolic 33–125; PULSE 63–83; RESP 14–25; TEMP 96.3–99; O2SAT 97–100
[2024-03-08 06:08] LABS: BASOPHILS # (AUTO) 0.1 (0.0-0.1); BASOPHILS % 0.4 % (0.0-1.0); EOSINOPHILS # (AUTO) 0.2 (0.0-0.4); EOSINOPHILS % 1.3 % (0.0-6.0); HEMATOCRIT 28.8 % (34.2-44.1); HEMOGLOBIN 9.6 g/dL (12.0-16.0); LYMPHOCYTES % 6.9 % (18.0-39.1); MEAN CORPUSCULAR HEMOGLOBIN 30.9 pg (28-32); MEAN CORPUSCULAR HGB CONC 33.3 g/dL (31-35); MEAN CORPUSCULAR VOLUME 92.6 fL (81-99); MONOCYTES % 7.3 % (4.4-11.3); NEUTROPHILS # (AUTO) 11.6 (2.1-6.9); NEUTROPHILS % 82.4 % (38.7-80.0); PLATELET COUNT 115 x10e3/uL (140-360); RED BLOOD COUNT 3.11 x10e6/uL (3.6-5.1); RED CELL DISTRIBUTION WIDTH 16.8 % (11.7-14.4); WHITE BLOOD COUNT 14.05 x10e3/uL (4.8-10.8)
[2024-03-08 06:28] LABS: ALBUMIN 1.6 g/dL (3.5-5.0); ALBUMIN/GLOBULIN RATIO 0.5 (0.8-2.0); ANION GAP 10.8 mmol/L (8-16); BILIRUBIN,TOTAL 0.3 mg/dL (0.2-1.2); CALCIUM 8.2 mg/dL (8.4-10.2); CREATININE, SERUM 2.57 mg/dL (0.57-1.11); MAGNESIUM 2.1 MG/DL (1.3-2.1); PHOSPHORUS 0.8 MG/DL (2.3-4.7); POTASSIUM 4.8 mmol/L (3.5-5.1); TOTAL PROTEIN 4.6 g/dL (6.5-8.1)
[2024-03-08 11:21] LABS: BAND NEUTROPHILS % (MANUAL) 1 %; LYMPHOCYTES % (MANUAL) 7 % (19-48); MONOCYTES % (MANUAL) 6 % (3.4-9.0); NEUTROPHILS % (MANUAL) 86 % (40-74)
[2024-03-08 11:23] LABS: PLATELET ESTIMATE SLIGHTLY DECREASED; PLATELET MORPHOLOGY COMMENT NORMAL; RBC MORPHOLOGY COMMENT NORMAL
[2024-03-08] MEDS: DICYCLOMINE HCL 20 MG TAB PO PRN (12:36)
[2024-03-08] MEDS: CLONIDINE HCL 0.1 MG TAB PO ONE (12:37)
[2024-03-08] MEDS: FLUCONAZOLE 200 MG/100 ML 100 ML IV SCH (13:55)
[2024-03-08] MEDS: CLONIDINE HCL 0.2 MG TAB PO SCH (14:01)
[2024-03-08] MEDS: SODIUM PHOSPHATE IV ONE (15:07)
[2024-03-08] MEDS: SODIUM CHLORIDE 0.9% IV ONE (15:07)
[2024-03-08] MEDS: CENTRAL TPN FORMULA 1 BAG IV SCH (19:56)
[2024-03-08] MEDS: ZOLPIDEM TARTRATE 5 MG TAB PO PRN (19:57)
[2024-03-08] MEDS: SODIUM CHLORIDE 0.9% 250ML 250 ML ONE (20:22)
[2024-03-09] VITALS (28 sets, daily range): BP systolic 89–173; BP diastolic 38–96; PULSE 60–73; RESP 11–35; TEMP 97.1–98.4; O2SAT 96–100
[2024-03-09 05:21] LABS: BASOPHILS % 0.3 % (0.0-1.0); EOSINOPHILS # (AUTO) 0.2 (0.0-0.4); EOSINOPHILS % 2.8 % (0.0-6.0); HEMATOCRIT 23.3 % (34.2-44.1); HEMOGLOBIN 7.5 g/dL (12.0-16.0); LYMPHOCYTES # (AUTO) 0.9 (1.0-3.2); LYMPHOCYTES % 11.3 % (18.0-39.1); MEAN CORPUSCULAR HEMOGLOBIN 30.5 pg (28-32); MEAN CORPUSCULAR HGB CONC 32.2 g/dL (31-35); MEAN CORPUSCULAR VOLUME 94.7 fL (81-99); MONOCYTES # (AUTO) 0.7 (0.2-0.8); MONOCYTES % 8.6 % (4.4-11.3); NEUTROPHILS % 75.1 % (38.7-80.0); RED BLOOD COUNT 2.46 x10e6/uL (3.6-5.1); RED CELL DISTRIBUTION WIDTH 17.1 % (11.7-14.4); WHITE BLOOD COUNT 7.99 x10e3/uL (4.8-10.8)
[2024-03-09 05:26] LABS: PLATELET COUNT 85 x10e3/uL (140-360)
[2024-03-09 05:38] LABS: ALBUMIN 1.3 g/dL (3.5-5.0); ALBUMIN/GLOBULIN RATIO 0.5 (0.8-2.0); BILIRUBIN,TOTAL 0.2 mg/dL (0.2-1.2); CALCIUM 7.6 mg/dL (8.4-10.2); CREATININE, SERUM 2.37 mg/dL (0.57-1.11); MAGNESIUM 1.9 MG/DL (1.3-2.1); TOTAL PROTEIN 3.8 g/dL (6.5-8.1)
[2024-03-09 05:48] LABS: POTASSIUM 4.4 mmol/L (3.5-5.1)
[2024-03-09 05:49] LABS: ANION GAP 12.4 mmol/L (8-16)
[2024-03-09] MEDS: CENTRAL TPN FORMULA 1 BAG IV SCH (21:10)
[2024-03-10] VITALS (30 sets, daily range): BP systolic 124–173; BP diastolic 49–79; PULSE 62–75; RESP 15–29; TEMP 98.2–98.4; O2SAT 96–100
[2024-03-10 06:44] LABS: BASOPHILS % 0.1 % (0.0-1.0); EOSINOPHILS # (AUTO) 0.2 (0.0-0.4); EOSINOPHILS % 2.5 % (0.0-6.0); HEMATOCRIT 24.2 % (34.2-44.1); HEMOGLOBIN 7.6 g/dL (12.0-16.0); LYMPHOCYTES # (AUTO) 1.3 (1.0-3.2); LYMPHOCYTES % 17.8 % (18.0-39.1); MEAN CORPUSCULAR HEMOGLOBIN 30.3 pg (28-32); MEAN CORPUSCULAR HGB CONC 31.4 g/dL (31-35); MEAN CORPUSCULAR VOLUME 96.4 fL (81-99); MONOCYTES # (AUTO) 0.7 (0.2-0.8); MONOCYTES % 10.1 % (4.4-11.3); NEUTROPHILS # (AUTO) 4.9 (2.1-6.9); NEUTROPHILS % 67.5 % (38.7-80.0); PLATELET COUNT 127 x10e3/uL (140-360); RED BLOOD COUNT 2.51 x10e6/uL (3.6-5.1); RED CELL DISTRIBUTION WIDTH 17.2 % (11.7-14.4); WHITE BLOOD COUNT 7.32 x10e3/uL (4.8-10.8)
[2024-03-10 07:04] LABS: ALBUMIN 1.5 g/dL (3.5-5.0); ALBUMIN/GLOBULIN RATIO 0.6 (0.8-2.0); ANION GAP 9.4 mmol/L (8-16); BILIRUBIN,TOTAL 0.2 mg/dL (0.2-1.2); CALCIUM 7.6 mg/dL (8.4-10.2); CREATININE, SERUM 2.31 mg/dL (0.57-1.11); MAGNESIUM 1.9 MG/DL (1.3-2.1); POTASSIUM 4.4 mmol/L (3.5-5.1); TOTAL PROTEIN 4.2 g/dL (6.5-8.1)
[2024-03-10] MEDS ORDERED: SODIUM PHOSPHATE 3 MMOL/ML INJ IV ONE (09:00)
[2024-03-10] MEDS: SODIUM PHOSPHATE 20 MMOL in SODIUM CHLORIDE 0.9% 250ML 250 ML IV ONE (09:21)
[2024-03-10 09:54] LABS: IRON 33 ug/dL (50-170); TRANSFERRIN < 70 mg/dL (180-382)
[2024-03-10] MEDS: LORAZEPAM 0.5 MG TAB PO ONE (18:17)
[2024-03-10] MEDS: CENTRAL TPN FORMULA 1 BAG IV SCH (20:44)
[2024-03-11] VITALS (42 sets, daily range): BP systolic 132–173; BP diastolic 43–81; PULSE 65–92; RESP 14–38; TEMP 98.2–98.6; O2SAT 95–100
[2024-03-11 10:13] LABS: ALBUMIN 1.7 g/dL (3.5-5.0); ALBUMIN/GLOBULIN RATIO 0.5 (0.8-2.0); ANION GAP 13.4 mmol/L (8-16); BILIRUBIN,TOTAL 0.2 mg/dL (0.2-1.2); CALCIUM 7.3 mg/dL (8.4-10.2); CREATININE, SERUM 2.18 mg/dL (0.57-1.11); MAGNESIUM 1.7 MG/DL (1.3-2.1); PHOSPHORUS 4.7 MG/DL (2.3-4.7); POTASSIUM 4.4 mmol/L (3.5-5.1); TOTAL PROTEIN 4.8 g/dL (6.5-8.1)
[2024-03-11] MEDS: MAGNESIUM SULFATE 2GM/50ML 50 ML IV ONE (11:48)
[2024-03-11] MEDS ORDERED: MAGNESIUM SULFATE 2GM/50ML 50 ML IV ONE (13:30)
[2024-03-11] MEDS: LORAZEPAM 0.5 MG TAB PO PRN (18:22)
[2024-03-12] VITALS (51 sets, daily range): BP systolic 131–193; BP diastolic 59–103; PULSE 78–104; RESP 20–33; TEMP 97.4–100; O2SAT 95–98
[2024-03-12 06:28] LABS: BASOPHILS # (AUTO) 0.1 (0.0-0.1); BASOPHILS % 0.2 % (0.0-1.0); EOSINOPHILS # (AUTO) 0.1 (0.0-0.4); EOSINOPHILS % 0.2 % (0.0-6.0); HEMATOCRIT 21.1 % (34.2-44.1); LYMPHOCYTES # (AUTO) 0.9 (1.0-3.2); LYMPHOCYTES % 4.5 % (18.0-39.1); MEAN CORPUSCULAR HEMOGLOBIN 31.1 pg (28-32); MEAN CORPUSCULAR HGB CONC 32.2 g/dL (31-35); MEAN CORPUSCULAR VOLUME 96.3 fL (81-99); MONOCYTES # (AUTO) 1.4 (0.2-0.8); MONOCYTES % 6.9 % (4.4-11.3); NEUTROPHILS # (AUTO) 17.9 (2.1-6.9); PLATELET COUNT 163 x10e3/uL (140-360); RED BLOOD COUNT 2.19 x10e6/uL (3.6-5.1); RED CELL DISTRIBUTION WIDTH 17.2 % (11.7-14.4)
[2024-03-12 06:37] LABS: ALBUMIN 1.6 g/dL (3.5-5.0); ALBUMIN/GLOBULIN RATIO 0.5 (0.8-2.0); ANION GAP 13.9 mmol/L (8-16); BILIRUBIN,TOTAL 0.3 mg/dL (0.2-1.2); CALCIUM 7.7 mg/dL (8.4-10.2); CREATININE, SERUM 2.12 mg/dL (0.57-1.11); PHOSPHORUS 4.2 MG/DL (2.3-4.7); POTASSIUM 3.9 mmol/L (3.5-5.1); TOTAL PROTEIN 4.9 g/dL (6.5-8.1)
[2024-03-12 06:39] LABS: HEMOGLOBIN 6.8 g/dL (12.0-16.0)
[2024-03-12 06:40] LABS: WHITE BLOOD COUNT 20.54 x10e3/uL (4.8-10.8)
[2024-03-12 07:54] LABS: BAND NEUTROPHILS % (MANUAL) 1 %; EOSINOPHILS % (MANUAL) 1 % (0-7); LYMPHOCYTES % (MANUAL) 4 % (19-48); MONOCYTES % (MANUAL) 6 % (3.4-9.0); NEUTROPHILS % (MANUAL) 88 % (40-74)
[2024-03-12 07:55] LABS: PLATELET ESTIMATE ADEQUATE; PLATELET MORPHOLOGY COMMENT NORMAL; RBC MORPHOLOGY COMMENT NORMAL
[2024-03-12] MEDS: CLINDAMYCIN 600MG / 50ML 50 ML IV SCH (15:18)
[2024-03-12] MEDS: BUMETANIDE INJ 0.25MG/ML 4ML VIAL IV ONE (15:18)
[2024-03-12] MEDS: Vancomycin IV 500 MG in SODIUM CHLORIDE 0.9% 100 ML IV SCH (15:18)
[2024-03-12] MEDS: DIPHENHYDRAMINE HCL INJ 50 MG/ML VIAL IV ONE (16:19)
[2024-03-12] MEDS: FAMOTIDINE 20 MG/2 ML VIAL IV ONE (16:20)
[2024-03-12] MEDS: DIPHENHYDRAMINE HCL 25 MG CAP PO ONE (16:20)
[2024-03-12] MEDS: SODIUM CHLORIDE 0.9% 250ML 250 ML IV ONE (16:28)
[2024-03-13] VITALS (78 sets, daily range): BP systolic 120–185; BP diastolic 60–102; PULSE 70–162; RESP 15–31; TEMP 98.7–101.1; O2SAT 95–98
[2024-03-13 05:52] LABS: BASOPHILS # (AUTO) 0.1 (0.0-0.1); BASOPHILS % 0.3 % (0.0-1.0); HEMATOCRIT 24.9 % (34.2-44.1); HEMOGLOBIN 8.3 g/dL (12.0-16.0); LYMPHOCYTES # (AUTO) 0.7 (1.0-3.2); LYMPHOCYTES % 2.4 % (18.0-39.1); MEAN CORPUSCULAR HEMOGLOBIN 30.5 pg (28-32); MEAN CORPUSCULAR HGB CONC 33.3 g/dL (31-35); MEAN CORPUSCULAR VOLUME 91.5 fL (81-99); MONOCYTES # (AUTO) 1.3 (0.2-0.8); MONOCYTES % 4.5 % (4.4-11.3); NEUTROPHILS % 91.5 % (38.7-80.0); PLATELET COUNT 151 x10e3/uL (140-360); RED BLOOD COUNT 2.72 x10e6/uL (3.6-5.1); RED CELL DISTRIBUTION WIDTH 17.9 % (11.7-14.4); WHITE BLOOD COUNT 29.49 x10e3/uL (4.8-10.8)
[2024-03-13 06:16] LABS: ALBUMIN 1.6 g/dL (3.5-5.0); ALBUMIN/GLOBULIN RATIO 0.4 (0.8-2.0); ANION GAP 17.7 mmol/L (8-16); BILIRUBIN,TOTAL 0.6 mg/dL (0.2-1.2); CALCIUM 7.8 mg/dL (8.4-10.2); CREATININE, SERUM 2.16 mg/dL (0.57-1.11); POTASSIUM 3.7 mmol/L (3.5-5.1); TOTAL PROTEIN 5.3 g/dL (6.5-8.1)
[2024-03-13 10:13] LABS: MONOCYTES % (MANUAL) 4 % (3.4-9.0); NEUTROPHILS % (MANUAL) 96 % (40-74); PLATELET ESTIMATE ADEQUATE; PLATELET MORPHOLOGY COMMENT NORMAL; RBC MORPHOLOGY COMMENT NORMAL
[2024-03-13] MEDS: ACETAMINOPHEN 1000 MG/100 ML IV PRN (11:43)
[2024-03-13] MEDS ORDERED: MICAFUNGIN SODIUM 100 MG IV SCH (14:15)
[2024-03-13] MEDS: BUMETANIDE INJ 0.25MG/ML 4ML VIAL IV ONE (15:10)
[2024-03-13] MEDS: MICAFUNGIN SODIUM 100 MG in SODIUM CHLORIDE 0.9% 100 ML IV SCH (15:36)
[2024-03-14] VITALS (23 sets, daily range): BP systolic 113–179; BP diastolic 63–105; PULSE 73–178; RESP 16–31; TEMP 98–100; O2SAT 96–99
[2024-03-14] MEDS ORDERED: PIPERACILLIN/TAZOBACTAM SOD 2.25 GM VIAL ONE (05:41)
[2024-03-14 06:58] LABS: BASOPHILS # (AUTO) 0.1 (0.0-0.1); BASOPHILS % 0.2 % (0.0-1.0); EOSINOPHILS # (AUTO) 0.2 (0.0-0.4); EOSINOPHILS % 0.7 % (0.0-6.0); HEMATOCRIT 23.6 % (34.2-44.1); HEMOGLOBIN 7.9 g/dL (12.0-16.0); LYMPHOCYTES # (AUTO) 0.8 (1.0-3.2); LYMPHOCYTES % 2.6 % (18.0-39.1); MEAN CORPUSCULAR HEMOGLOBIN 30.9 pg (28-32); MEAN CORPUSCULAR HGB CONC 33.5 g/dL (31-35); MEAN CORPUSCULAR VOLUME 92.2 fL (81-99); MONOCYTES % 3.1 % (4.4-11.3); NEUTROPHILS # (AUTO) 29.5 (2.1-6.9); NEUTROPHILS % 91.3 % (38.7-80.0); PLATELET COUNT 198 x10e3/uL (140-360); RED BLOOD COUNT 2.56 x10e6/uL (3.6-5.1); RED CELL DISTRIBUTION WIDTH 17.8 % (11.7-14.4); WHITE BLOOD COUNT 32.27 x10e3/uL (4.8-10.8)
[2024-03-14 07:21] LABS: ALBUMIN 1.5 g/dL (3.5-5.0); ALBUMIN/GLOBULIN RATIO 0.4 (0.8-2.0); ANION GAP 15.1 mmol/L (8-16); BILIRUBIN,TOTAL 0.3 mg/dL (0.2-1.2); CALCIUM 7.9 mg/dL (8.4-10.2); CREATININE, SERUM 2.26 mg/dL (0.57-1.11); TOTAL PROTEIN 5.5 g/dL (6.5-8.1)
[2024-03-14 07:22] LABS: POTASSIUM 3.1 mmol/L (3.5-5.1)
[2024-03-14 08:54] LABS: LYMPHOCYTES % (MANUAL) 1 % (19-48); MONOCYTES % (MANUAL) 2 % (3.4-9.0); NEUTROPHILS % (MANUAL) 97 % (40-74); PLATELET ESTIMATE ADEQUATE; PLATELET MORPHOLOGY COMMENT NORMAL; RBC MORPHOLOGY COMMENT NORMAL
[2024-03-14] MEDS: POTASSIUM CHLORIDE 20MEQ/100ML 100 ML IV SCH (12:45)
[2024-03-14] MEDS ORDERED: DIATRIZOATE MEGL/DIATRIZOA SOD 30 ML BTL PO ONE (13:22)
[2024-03-15] VITALS (23 sets, daily range): BP systolic 148–182; BP diastolic 66–100; PULSE 78–125; RESP 16–28; TEMP 97.8–99.5; O2SAT 97–99
[2024-03-15 07:00] LABS: ALBUMIN 1.5 g/dL (3.5-5.0); ALBUMIN/GLOBULIN RATIO 0.4 (0.8-2.0); ANION GAP 14.3 mmol/L (8-16); BILIRUBIN,TOTAL 0.5 mg/dL (0.2-1.2); CALCIUM 8.3 mg/dL (8.4-10.2); CREATININE, SERUM 2.09 mg/dL (0.57-1.11); MAGNESIUM 1.8 MG/DL (1.3-2.1); PHOSPHORUS 3.6 MG/DL (2.3-4.7); POTASSIUM 3.3 mmol/L (3.5-5.1); TOTAL PROTEIN 5.6 g/dL (6.5-8.1)
[2024-03-15] MEDS: POTASSIUM CHLORIDE 20MEQ/100ML 100 ML IV ONE (11:44)
[2024-03-15] MEDS: BUMETANIDE INJ 0.25MG/ML 4ML VIAL IV ONE (11:44)
[2024-03-15] MEDS ORDERED: HEPARIN SOD/DEXTROSE 5% 25000 UNIT/250 ML BAG IV SCH (13:15)
[2024-03-15] MEDS ORDERED: HEPARIN 25,000 UNIT/D5W 250ML 250 ML IV SCH (13:30)
[2024-03-15] MEDS: HEPARIN 25,000 UNIT/D5W 250ML 250 ML IV SCH (14:30)
[2024-03-16] VITALS (20 sets, daily range): BP systolic 139–171; BP diastolic 57–88; PULSE 68–94; RESP 15–34; TEMP 97.4–99.2; O2SAT 96–99
[2024-03-16 12:09] LABS: BASOPHILS # (AUTO) 0.1 (0.0-0.1); BASOPHILS % 0.4 % (0.0-1.0); EOSINOPHILS # (AUTO) 0.1 (0.0-0.4); EOSINOPHILS % 0.2 % (0.0-6.0); HEMATOCRIT 24.2 % (34.2-44.1); HEMOGLOBIN 7.8 g/dL (12.0-16.0); LYMPHOCYTES # (AUTO) 0.8 (1.0-3.2); LYMPHOCYTES % 3.7 % (18.0-39.1); MEAN CORPUSCULAR HEMOGLOBIN 30.1 pg (28-32); MEAN CORPUSCULAR HGB CONC 32.2 g/dL (31-35); MEAN CORPUSCULAR VOLUME 93.4 fL (81-99); MONOCYTES # (AUTO) 1.4 (0.2-0.8); MONOCYTES % 6.6 % (4.4-11.3); NEUTROPHILS % 87.4 % (38.7-80.0); PLATELET COUNT 342 x10e3/uL (140-360); RED BLOOD COUNT 2.59 x10e6/uL (3.6-5.1); RED CELL DISTRIBUTION WIDTH 17.3 % (11.7-14.4); WHITE BLOOD COUNT 20.66 x10e3/uL (4.8-10.8)
[2024-03-16 12:24] LABS: ANION GAP 18.9 mmol/L (8-16); CREATININE, SERUM 1.71 mg/dL (0.57-1.11)
[2024-03-16 12:48] LABS: POTASSIUM 2.9 mmol/L (3.5-5.1)
[2024-03-16 13:27] LABS: MAGNESIUM 1.6 MG/DL (1.3-2.1); PHOSPHORUS 3.5 MG/DL (2.3-4.7)
[2024-03-16] MEDS: POTASSIUM CHLORIDE 20MEQ/100ML 200 ML IV ONE (13:40)
[2024-03-16] MEDS: SODIUM BICARBONATE 8.4% SYRING 150 ML in DEXTROSE 5% 1,000 ML IV SCH (13:41)
[2024-03-16] MEDS: MAGNESIUM SULFATE 2GM/50ML 50 ML IV ONE (15:13)
[2024-03-16] MEDS: ACETAMINOPHEN 325 MG/10 ML UDC NG PRN (16:20)
[2024-03-16] MEDS ORDERED: ACETAMINOPHEN 1000 MG/100 ML 100 ML IV ONE (17:11)
[2024-03-16] MEDS ORDERED: SIMETHICONE 80 MG CHEW PO PRN (19:15)
[2024-03-16] MEDS: ZOLPIDEM TARTRATE 10 MG TAB PO PRN (20:01)
[2024-03-17] VITALS (21 sets, daily range): BP systolic 132–174; BP diastolic 55–97; PULSE 63–83; RESP 8–20; TEMP 97.1–98.3; O2SAT 96–100
[2024-03-17 07:02] LABS: BASOPHILS % 0.3 % (0.0-1.0); EOSINOPHILS # (AUTO) 0.3 (0.0-0.4); EOSINOPHILS % 1.8 % (0.0-6.0); HEMATOCRIT 23.4 % (34.2-44.1); LYMPHOCYTES # (AUTO) 0.9 (1.0-3.2); LYMPHOCYTES % 6.7 % (18.0-39.1); MEAN CORPUSCULAR HEMOGLOBIN 29.9 pg (28-32); MEAN CORPUSCULAR HGB CONC 32.1 g/dL (31-35); MEAN CORPUSCULAR VOLUME 93.2 fL (81-99); MONOCYTES # (AUTO) 1.3 (0.2-0.8); MONOCYTES % 9.1 % (4.4-11.3); NEUTROPHILS # (AUTO) 11.2 (2.1-6.9); NEUTROPHILS % 80.7 % (38.7-80.0); PLATELET COUNT 311 x10e3/uL (140-360); RED BLOOD COUNT 2.51 x10e6/uL (3.6-5.1); RED CELL DISTRIBUTION WIDTH 16.9 % (11.7-14.4); WHITE BLOOD COUNT 13.81 x10e3/uL (4.8-10.8)
[2024-03-17 07:07] LABS: HEMOGLOBIN 7.6 g/dL (12.0-16.0)
[2024-03-17 07:16] LABS: INR 1.2
[2024-03-17 07:17] LABS: PARTIAL THROMBOPLASTIN TIME 75.3 seconds (23.8-35.5)
[2024-03-17 07:30] LABS: ALBUMIN 1.5 g/dL (3.5-5.0); ALBUMIN/GLOBULIN RATIO 0.4 (0.8-2.0); ANION GAP 11.9 mmol/L (8-16); BILIRUBIN,TOTAL 0.4 mg/dL (0.2-1.2); CALCIUM 7.8 mg/dL (8.4-10.2); CREATININE, SERUM 1.71 mg/dL (0.57-1.11); MAGNESIUM 1.5 MG/DL (1.3-2.1); TOTAL PROTEIN 5.3 g/dL (6.5-8.1)
[2024-03-17 07:31] LABS: POTASSIUM 2.9 mmol/L (3.5-5.1)
[2024-03-17] MEDS: MAGNESIUM SULFATE 2GM/50ML 50 ML IV ONE (08:52)
[2024-03-17] MEDS: POTASSIUM CHLORIDE 20MEQ/100ML 100 ML IV SCH (08:53)
[2024-03-17] MEDS: NYSTATIN 15 GM POWDER UD BTL TOP SCH (10:07)
[2024-03-17] MEDS ORDERED: LIDOCAINE HCL 1% LOCAL INJ 20 ML VIAL ONE (13:19)
[2024-03-17 14:57] LABS: BODY FLUID COLOR YELLOW; BODY FLUID TYPE PLEURAL
[2024-03-17 14:58] LABS: BODY FLUID APPEARANCE SL.CLOUDY
[2024-03-17 15:26] LABS: RBC,BODY FLUID < 2000 cells/uL; WBC,BODY FLUID 94 cells/uL
[2024-03-17] MEDS: BUMETANIDE INJ 0.25MG/ML 4ML VIAL IV ONE (15:50)
[2024-03-17] MEDS: SODIUM CHLORIDE 0.9% 250ML 250 ML ONE (15:59)
[2024-03-17 16:08] LABS: ANION GAP 15.4 mmol/L (8-16); CREATININE, SERUM 1.64 mg/dL (0.57-1.11)
[2024-03-17 16:09] LABS: POTASSIUM 3.4 mmol/L (3.5-5.1)
[2024-03-17 16:31] LABS: LYMPHOCYTES,BODY FLUID 13 %; MONO/MACROPHG,BODY FLUID 15 %; NEUTROPHILS,BODY FLUID 72 %; TOTAL CELLS COUNTED (DIFF) 100
[2024-03-17] MEDS: CENTRAL TPN FORMULA 1 BAG IV SCH (20:03)
[2024-03-18] VITALS (27 sets, daily range): BP systolic 125–172; BP diastolic 57–111; PULSE 70–87; RESP 16–31; TEMP 97.7–98.7; O2SAT 95–100
[2024-03-18 07:01] LABS: BASOPHILS # (AUTO) 0.1 (0.0-0.1); BASOPHILS % 0.6 % (0.0-1.0); EOSINOPHILS # (AUTO) 0.2 (0.0-0.4); EOSINOPHILS % 1.6 % (0.0-6.0); LYMPHOCYTES # (AUTO) 1.2 (1.0-3.2); MEAN CORPUSCULAR HEMOGLOBIN 30.3 pg (28-32); MEAN CORPUSCULAR HGB CONC 31.9 g/dL (31-35); MONOCYTES # (AUTO) 1.3 (0.2-0.8); MONOCYTES % 9.8 % (4.4-11.3); NEUTROPHILS # (AUTO) 9.9 (2.1-6.9); NEUTROPHILS % 73.9 % (38.7-80.0); PLATELET COUNT 278 x10e3/uL (140-360); RED BLOOD COUNT 2.38 x10e6/uL (3.6-5.1); RED CELL DISTRIBUTION WIDTH 16.9 % (11.7-14.4); WHITE BLOOD COUNT 13.41 x10e3/uL (4.8-10.8)
[2024-03-18 07:10] LABS: HEMATOCRIT 23.1 % (34.2-44.1); HEMOGLOBIN 7.2 g/dL (12.0-16.0)
[2024-03-18 07:41] LABS: ALBUMIN 1.4 g/dL (3.5-5.0); ALBUMIN/GLOBULIN RATIO 0.4 (0.8-2.0); ANION GAP 14.4 mmol/L (8-16); BILIRUBIN,TOTAL 0.3 mg/dL (0.2-1.2); CALCIUM 7.8 mg/dL (8.4-10.2); CREATININE, SERUM 1.67 mg/dL (0.57-1.11); MAGNESIUM 2.6 MG/DL (1.3-2.1); PHOSPHORUS 3.5 MG/DL (2.3-4.7); TOTAL PROTEIN 4.9 g/dL (6.5-8.1)
[2024-03-18 07:43] LABS: POTASSIUM 3.4 mmol/L (3.5-5.1)
[2024-03-18 08:09] LABS: BASOPHILS % (MANUAL) 1 % (0-1.5); EOSINOPHILS % (MANUAL) 2 % (0-7); LYMPHOCYTES % (MANUAL) 5 % (19-48); MONOCYTES % (MANUAL) 3 % (3.4-9.0); MYELOCYTES % (MANUAL) 1 % (0-0); NEUTROPHILS % (MANUAL) 88 % (40-74); PLATELET ESTIMATE ADEQUATE; PLATELET MORPHOLOGY COMMENT NORMAL; RBC MORPHOLOGY COMMENT NORMAL
[2024-03-18] MEDS: MUPIROCIN 2% OINT 22 GM TUBE TOP SCH (08:54)
[2024-03-18] MEDS: POTASSIUM CHLORIDE 20MEQ/100ML 100 ML IV ONE (09:52)
[2024-03-18] MEDS ORDERED: POTASSIUM CHLORIDE 20MEQ/100ML 200 ML IV ONE (11:00)
[2024-03-18] MEDS: BUMETANIDE INJ 0.25MG/ML 4ML VIAL IV ONE (11:06)
[2024-03-18] MEDS: POTASSIUM CHLORIDE 20MEQ/100ML 200 ML IV ONE (11:07)
[2024-03-18] MEDS: ACETAMINOPHEN 1000 MG/100 ML IV PRN (12:43)
[2024-03-18 18:33] LABS: GLUCOSE,BODY FLUID 128 mg/dL
[2024-03-18] MEDS: LORAZEPAM 0.5 MG TAB PO PRN (23:15)
[2024-03-19] VITALS (24 sets, daily range): BP systolic 131–189; BP diastolic 54–86; PULSE 63–79; RESP 13–31; TEMP 97.9–98.3; O2SAT 97–100
[2024-03-19 09:04] LABS: BASOPHILS # (AUTO) 0.1 (0.0-0.1); BASOPHILS % 0.6 % (0.0-1.0); EOSINOPHILS # (AUTO) 0.3 (0.0-0.4); EOSINOPHILS % 2.9 % (0.0-6.0); HEMOGLOBIN 7.2 g/dL (12.0-16.0); LYMPHOCYTES # (AUTO) 1.6 (1.0-3.2); LYMPHOCYTES % 17.5 % (18.0-39.1); MEAN CORPUSCULAR HEMOGLOBIN 30.8 pg (28-32); MEAN CORPUSCULAR HGB CONC 32.3 g/dL (31-35); MEAN CORPUSCULAR VOLUME 95.3 fL (81-99); MONOCYTES # (AUTO) 0.8 (0.2-0.8); MONOCYTES % 9.5 % (4.4-11.3); NEUTROPHILS # (AUTO) 5.7 (2.1-6.9); PLATELET COUNT 369 x10e3/uL (140-360); RED BLOOD COUNT 2.34 x10e6/uL (3.6-5.1); RED CELL DISTRIBUTION WIDTH 16.8 % (11.7-14.4); WHITE BLOOD COUNT 8.86 x10e3/uL (4.8-10.8)
[2024-03-19 09:09] LABS: HEMATOCRIT 22.3 % (34.2-44.1)
[2024-03-19 09:21] LABS: ALBUMIN 1.6 g/dL (3.5-5.0); ALBUMIN/GLOBULIN RATIO 0.4 (0.8-2.0); ANION GAP 13.7 mmol/L (8-16); BILIRUBIN,TOTAL 0.3 mg/dL (0.2-1.2); CALCIUM 7.8 mg/dL (8.4-10.2); CREATININE, SERUM 1.63 mg/dL (0.57-1.11); MAGNESIUM 2.3 MG/DL (1.3-2.1); PHOSPHORUS 4.1 MG/DL (2.3-4.7); POTASSIUM 4.7 mmol/L (3.5-5.1); TOTAL PROTEIN 5.3 g/dL (6.5-8.1)
[2024-03-19] MEDS ORDERED: MAALOX/LIDOCAINE/BENADRYL/NYST 30 ML BTL PO PRN (15:15)
[2024-03-19] MEDS: CENTRAL TPN FORMULA 1 BAG IV SCH (21:03)
[2024-03-20] VITALS (28 sets, daily range): BP systolic 129–190; BP diastolic 51–113; PULSE 68–85; RESP 8–33; TEMP 97.3–98.2; O2SAT 96–100
[2024-03-20] MEDS: DIPHENHYDRAMINE HCL INJ 50 MG/ML VIAL IV PRN (00:17)
[2024-03-20] MEDS: Morphine 2mg Syringe 2 MG/ML SYR IV PRN (02:36)
[2024-03-20 06:08] LABS: BASOPHILS # (AUTO) 0.1 (0.0-0.1); BASOPHILS % 0.7 % (0.0-1.0); EOSINOPHILS # (AUTO) 0.3 (0.0-0.4); EOSINOPHILS % 2.7 % (0.0-6.0); LYMPHOCYTES # (AUTO) 1.5 (1.0-3.2); LYMPHOCYTES % 13.5 % (18.0-39.1); MEAN CORPUSCULAR HEMOGLOBIN 30.7 pg (28-32); MEAN CORPUSCULAR HGB CONC 31.5 g/dL (31-35); MEAN CORPUSCULAR VOLUME 97.7 fL (81-99); MONOCYTES % 8.8 % (4.4-11.3); NEUTROPHILS # (AUTO) 7.7 (2.1-6.9); NEUTROPHILS % 68.1 % (38.7-80.0); PLATELET COUNT 371 x10e3/uL (140-360); RED BLOOD COUNT 2.18 x10e6/uL (3.6-5.1); RED CELL DISTRIBUTION WIDTH 16.8 % (11.7-14.4); WHITE BLOOD COUNT 11.37 x10e3/uL (4.8-10.8)
[2024-03-20 06:19] LABS: HEMOGLOBIN 6.7 g/dL (12.0-16.0)
[2024-03-20 06:20] LABS: HEMATOCRIT 21.3 % (34.2-44.1)
[2024-03-20 06:29] LABS: ALBUMIN 1.5 g/dL (3.5-5.0); ALBUMIN/GLOBULIN RATIO 0.4 (0.8-2.0); BILIRUBIN,TOTAL 0.2 mg/dL (0.2-1.2); CALCIUM 7.8 mg/dL (8.4-10.2); CREATININE, SERUM 1.61 mg/dL (0.57-1.11)
[2024-03-20] MEDS: SODIUM CHLORIDE 0.9% 250ML 250 ML IV ONE (15:12)
[2024-03-20] MEDS ORDERED: ACETAMINOPHEN 1000 MG/100 ML IV PRN (16:45)
[2024-03-20] MEDS: CENTRAL TPN FORMULA 1 BAG IV SCH (20:12)
[2024-03-21] VITALS (60 sets, daily range): BP systolic 115–199; BP diastolic 53–121; PULSE 72–101; RESP 15–37; TEMP 97.7–98.5; O2SAT 97–100
[2024-03-21 06:41] LABS: BASOPHILS # (AUTO) 0.1 (0.0-0.1); BASOPHILS % 0.9 % (0.0-1.0); EOSINOPHILS # (AUTO) 0.2 (0.0-0.4); HEMATOCRIT 25.6 % (34.2-44.1); HEMOGLOBIN 8.3 g/dL (12.0-16.0); LYMPHOCYTES # (AUTO) 1.4 (1.0-3.2); LYMPHOCYTES % 12.6 % (18.0-39.1); MEAN CORPUSCULAR HEMOGLOBIN 30.7 pg (28-32); MEAN CORPUSCULAR HGB CONC 32.4 g/dL (31-35); MEAN CORPUSCULAR VOLUME 94.8 fL (81-99); NEUTROPHILS # (AUTO) 7.8 (2.1-6.9); NEUTROPHILS % 69.4 % (38.7-80.0); PLATELET COUNT 327 x10e3/uL (140-360); RED CELL DISTRIBUTION WIDTH 16.1 % (11.7-14.4); WHITE BLOOD COUNT 11.27 x10e3/uL (4.8-10.8)
[2024-03-21 07:05] LABS: ALBUMIN 2.2 g/dL (3.5-5.0); ALBUMIN/GLOBULIN RATIO 0.8 (0.8-2.0); ANION GAP 11.4 mmol/L (8-16); BILIRUBIN,TOTAL 0.2 mg/dL (0.2-1.2); CALCIUM 7.8 mg/dL (8.4-10.2); CREATININE, SERUM 1.6 mg/dL (0.57-1.11); MAGNESIUM 1.7 MG/DL (1.3-2.1); POTASSIUM 4.4 mmol/L (3.5-5.1)
[2024-03-21] MEDS: CLONIDINE HCL 0.2 MG/24 HR 1 EA PATCH TOP SCH (10:18)
[2024-03-21] MEDS: BUMETANIDE INJ 0.25MG/ML 4ML VIAL IV ONE (10:18)
[2024-03-21] MEDS: MAGNESIUM SULFATE 2GM/50ML 50 ML IV ONE (10:20)
[2024-03-21] MEDS: AMLODIPINE BESYLATE 10 MG TAB PO SCH (10:21)
[2024-03-22] VITALS (36 sets, daily range): BP systolic 130–176; BP diastolic 43–87; PULSE 70–98; RESP 16–32; TEMP 97.8–98.8; O2SAT 96–100
[2024-03-22 06:34] LABS: BASOPHILS # (AUTO) 0.1 (0.0-0.1); BASOPHILS % 0.8 % (0.0-1.0); EOSINOPHILS # (AUTO) 0.3 (0.0-0.4); EOSINOPHILS % 2.8 % (0.0-6.0); HEMATOCRIT 25.7 % (34.2-44.1); HEMOGLOBIN 8.2 g/dL (12.0-16.0); LYMPHOCYTES # (AUTO) 1.3 (1.0-3.2); LYMPHOCYTES % 10.7 % (18.0-39.1); MEAN CORPUSCULAR HEMOGLOBIN 30.8 pg (28-32); MEAN CORPUSCULAR HGB CONC 31.9 g/dL (31-35); MEAN CORPUSCULAR VOLUME 96.6 fL (81-99); MONOCYTES # (AUTO) 1.2 (0.2-0.8); MONOCYTES % 9.6 % (4.4-11.3); NEUTROPHILS # (AUTO) 8.5 (2.1-6.9); NEUTROPHILS % 70.2 % (38.7-80.0); PLATELET COUNT 332 x10e3/uL (140-360); RED BLOOD COUNT 2.66 x10e6/uL (3.6-5.1); RED CELL DISTRIBUTION WIDTH 16.2 % (11.7-14.4); WHITE BLOOD COUNT 12.05 x10e3/uL (4.8-10.8)
[2024-03-22 06:50] LABS: ALBUMIN 2.2 g/dL (3.5-5.0); ALBUMIN/GLOBULIN RATIO 0.8 (0.8-2.0); ANION GAP 11.8 mmol/L (8-16); BILIRUBIN,TOTAL 0.2 mg/dL (0.2-1.2); CALCIUM 7.8 mg/dL (8.4-10.2); CREATININE, SERUM 1.55 mg/dL (0.57-1.11); MAGNESIUM 2.2 MG/DL (1.3-2.1); POTASSIUM 3.8 mmol/L (3.5-5.1); TOTAL PROTEIN 4.9 g/dL (6.5-8.1)
[2024-03-22 12:30] LABS: BASOPHILS % (MANUAL) 1 % (0-1.5); EOSINOPHILS % (MANUAL) 2 % (0-7); LYMPHOCYTES % (MANUAL) 10 % (19-48); METAMYELOCYTES % (MANUAL) 1 % (0-0); MONOCYTES % (MANUAL) 4 % (3.4-9.0); NEUTROPHILS % (MANUAL) 82 % (40-74); PLATELET ESTIMATE ADEQUATE; PLATELET MORPHOLOGY COMMENT NORMAL; RBC MORPHOLOGY COMMENT NORMAL
[2024-03-22] MEDS ORDERED: HEPARIN 25,000 UNIT/D5W 250ML 600 UNIT in DEXTROSE 5% 250ML 250 ML IV SCH (19:00)
[2024-03-22] MEDS ORDERED: HEPARIN 25,000 UNIT/D5W 250ML 250 ML IV ONE (20:03)
[2024-03-22] MEDS: CENTRAL TPN FORMULA 1 BAG IV SCH (20:10)
[2024-03-22] MEDS: HEPARIN 25,000 UNIT/D5W 250ML 600 UNIT in DEXTROSE 5% 250ML 250 ML IV SCH (20:20)
[2024-03-23] VITALS (8 sets, daily range): BP systolic 110–158; BP diastolic 68–90; PULSE 70–90; RESP 18–20; TEMP 97.4–98.6; O2SAT 95–100
[2024-03-23 09:15] LABS: BASOPHILS % 0.3 % (0.0-1.0); EOSINOPHILS # (AUTO) 0.3 (0.0-0.4); EOSINOPHILS % 2.7 % (0.0-6.0); LYMPHOCYTES # (AUTO) 1.3 (1.0-3.2); LYMPHOCYTES % 14.1 % (18.0-39.1); MEAN CORPUSCULAR HEMOGLOBIN 30.4 pg (28-32); MEAN CORPUSCULAR HGB CONC 30.8 g/dL (31-35); MEAN CORPUSCULAR VOLUME 98.9 fL (81-99); MONOCYTES # (AUTO) 1.1 (0.2-0.8); MONOCYTES % 11.5 % (4.4-11.3); NEUTROPHILS # (AUTO) 6.1 (2.1-6.9); PLATELET COUNT 349 x10e3/uL (140-360); RED BLOOD COUNT 2.63 x10e6/uL (3.6-5.1); RED CELL DISTRIBUTION WIDTH 16.6 % (11.7-14.4); WHITE BLOOD COUNT 9.25 x10e3/uL (4.8-10.8)
[2024-03-23 09:41] LABS: ALBUMIN 2.3 g/dL (3.5-5.0); ALBUMIN/GLOBULIN RATIO 0.9 (0.8-2.0); ANION GAP 10.4 mmol/L (8-16); BILIRUBIN,TOTAL 0.3 mg/dL (0.2-1.2); CALCIUM 7.9 mg/dL (8.4-10.2); CREATININE, SERUM 1.53 mg/dL (0.57-1.11); TOTAL PROTEIN 4.9 g/dL (6.5-8.1)
[2024-03-23 09:43] LABS: POTASSIUM 3.4 mmol/L (3.5-5.1)
[2024-03-23] MEDS: ZOLPIDEM TARTRATE 10 MG TAB PO SCH (21:48)
[2024-03-23] MEDS: CENTRAL TPN FORMULA 1 BAG IV SCH (21:56)
[2024-03-24] VITALS (12 sets, daily range): BP systolic 136–150; BP diastolic 60–77; PULSE 73–96; RESP 18–23; TEMP 98–98.3; O2SAT 97–99
[2024-03-24] MEDS: POTASSIUM CHLORIDE 10MEQ/100ML 200 ML IV ONE (00:58)
[2024-03-24] MEDS: SODIUM CHLORIDE 0.9% 250ML 250 ML ONE (00:59)
[2024-03-24 06:29] LABS: BASOPHILS # (AUTO) 0.1 (0.0-0.1); BASOPHILS % 0.6 % (0.0-1.0); EOSINOPHILS # (AUTO) 0.2 (0.0-0.4); EOSINOPHILS % 2.6 % (0.0-6.0); HEMATOCRIT 23.9 % (34.2-44.1); LYMPHOCYTES # (AUTO) 1.3 (1.0-3.2); LYMPHOCYTES % 14.6 % (18.0-39.1); MEAN CORPUSCULAR HEMOGLOBIN 31.2 pg (28-32); MEAN CORPUSCULAR HGB CONC 32.2 g/dL (31-35); MEAN CORPUSCULAR VOLUME 96.8 fL (81-99); MONOCYTES # (AUTO) 1.1 (0.2-0.8); MONOCYTES % 12.6 % (4.4-11.3); NEUTROPHILS % 65.7 % (38.7-80.0); PLATELET COUNT 411 x10e3/uL (140-360); RED BLOOD COUNT 2.47 x10e6/uL (3.6-5.1); RED CELL DISTRIBUTION WIDTH 16.5 % (11.7-14.4); WHITE BLOOD COUNT 9.06 x10e3/uL (4.8-10.8)
[2024-03-24 06:45] LABS: HEMOGLOBIN 7.7 g/dL (12.0-16.0)
[2024-03-24 07:10] LABS: ALBUMIN 2.3 g/dL (3.5-5.0); ALBUMIN/GLOBULIN RATIO 0.9 (0.8-2.0); ANION GAP 11.1 mmol/L (8-16); BILIRUBIN,TOTAL 0.3 mg/dL (0.2-1.2); CREATININE, SERUM 1.38 mg/dL (0.57-1.11)
[2024-03-24 07:32] LABS: POTASSIUM 3.1 mmol/L (3.5-5.1)
[2024-03-24] MEDS: POTASSIUM CHLORIDE 20MEQ/100ML 200 ML IV ONE (10:44)
[2024-03-24] MEDS: FUROSEMIDE INJ 10 MG/ML 4 ML VIAL IV ONE (10:44)
[2024-03-25] VITALS (9 sets, daily range): BP systolic 112–145; BP diastolic 58–83; PULSE 75–87; RESP 17–22; TEMP 98–98.3; O2SAT 96–100
[2024-03-25 07:06] LABS: BASOPHILS % 0.4 % (0.0-1.0); EOSINOPHILS # (AUTO) 0.3 (0.0-0.4); EOSINOPHILS % 3.4 % (0.0-6.0); HEMATOCRIT 23.8 % (34.2-44.1); HEMOGLOBIN 7.4 g/dL (12.0-16.0); LYMPHOCYTES # (AUTO) 1.3 (1.0-3.2); LYMPHOCYTES % 15.8 % (18.0-39.1); MEAN CORPUSCULAR HEMOGLOBIN 30.6 pg (28-32); MEAN CORPUSCULAR HGB CONC 31.1 g/dL (31-35); MEAN CORPUSCULAR VOLUME 98.3 fL (81-99); MONOCYTES # (AUTO) 1.2 (0.2-0.8); MONOCYTES % 14.5 % (4.4-11.3); NEUTROPHILS # (AUTO) 5.3 (2.1-6.9); NEUTROPHILS % 62.2 % (38.7-80.0); PLATELET COUNT 329 x10e3/uL (140-360); RED BLOOD COUNT 2.42 x10e6/uL (3.6-5.1); RED CELL DISTRIBUTION WIDTH 16.4 % (11.7-14.4); WHITE BLOOD COUNT 8.43 x10e3/uL (4.8-10.8)
[2024-03-25 07:29] LABS: ALBUMIN 2.4 g/dL (3.5-5.0); ALBUMIN/GLOBULIN RATIO 0.9 (0.8-2.0); ANION GAP 11.6 mmol/L (8-16); BILIRUBIN,TOTAL 0.3 mg/dL (0.2-1.2); CALCIUM 8.2 mg/dL (8.4-10.2); CREATININE, SERUM 1.44 mg/dL (0.57-1.11); POTASSIUM 3.6 mmol/L (3.5-5.1); TOTAL PROTEIN 5.2 g/dL (6.5-8.1)
[2024-03-25] MEDS: FUROSEMIDE INJ 10 MG/ML 4 ML VIAL IV ONE (12:37)
[2024-03-25] MEDS: CENTRAL TPN FORMULA 1 BAG IV SCH (20:08)
[2024-03-26] VITALS (8 sets, daily range): BP systolic 112–153; BP diastolic 65–69; PULSE 72–82; RESP 16–20; TEMP 97.8–98.5; O2SAT 98–100
[2024-03-26 05:45] LABS: BASOPHILS % 0.2 % (0.0-1.0); EOSINOPHILS # (AUTO) 0.2 (0.0-0.4); EOSINOPHILS % 2.9 % (0.0-6.0); HEMOGLOBIN 6.9 g/dL (12.0-16.0); LYMPHOCYTES # (AUTO) 1.1 (1.0-3.2); LYMPHOCYTES % 14.2 % (18.0-39.1); MEAN CORPUSCULAR HEMOGLOBIN 31.1 pg (28-32); MEAN CORPUSCULAR HGB CONC 31.4 g/dL (31-35); MEAN CORPUSCULAR VOLUME 99.1 fL (81-99); MONOCYTES # (AUTO) 1.1 (0.2-0.8); MONOCYTES % 13.7 % (4.4-11.3); NEUTROPHILS # (AUTO) 5.4 (2.1-6.9); NEUTROPHILS % 67.4 % (38.7-80.0); PLATELET COUNT 327 x10e3/uL (140-360); RED BLOOD COUNT 2.22 x10e6/uL (3.6-5.1); RED CELL DISTRIBUTION WIDTH 16.6 % (11.7-14.4); WHITE BLOOD COUNT 8.01 x10e3/uL (4.8-10.8)
[2024-03-26 06:06] LABS: ALBUMIN 2.2 g/dL (3.5-5.0); ALBUMIN/GLOBULIN RATIO 0.8 (0.8-2.0); ANION GAP 12.4 mmol/L (8-16); BILIRUBIN,TOTAL 0.3 mg/dL (0.2-1.2); CALCIUM 8.5 mg/dL (8.4-10.2); CREATININE, SERUM 1.56 mg/dL (0.57-1.11); POTASSIUM 3.4 mmol/L (3.5-5.1); TOTAL PROTEIN 5.1 g/dL (6.5-8.1)
[2024-03-26] MEDS ORDERED: SODIUM CHLORIDE 0.9% 250ML 250 ML IV ONE (06:30)
[2024-03-26] MEDS: SODIUM CHLORIDE 0.9% 250ML 250 ML IV ONE (11:53)
[2024-03-26] MEDS: POTASSIUM CHLORIDE 20MEQ/100ML 100 ML IV ONE (14:10)
[2024-03-26] MEDS: LORAZEPAM 0.5 MG TAB PO PRN (16:30)
[2024-03-26] MEDS: CENTRAL TPN FORMULA 1 BAG IV SCH (20:05)
[2024-03-27] VITALS (9 sets, daily range): BP systolic 133–149; BP diastolic 60–74; PULSE 75–88; RESP 18–22; TEMP 98–99.1; O2SAT 95–99
[2024-03-27 06:05] LABS: HEMATOCRIT 26.8 % (34.2-44.1); HEMOGLOBIN 8.8 g/dL (12.0-16.0); MEAN CORPUSCULAR HEMOGLOBIN 31.1 pg (28-32); MEAN CORPUSCULAR HGB CONC 32.8 g/dL (31-35); MEAN CORPUSCULAR VOLUME 94.7 fL (81-99); PLATELET COUNT 299 x10e3/uL (140-360); RED BLOOD COUNT 2.83 x10e6/uL (3.6-5.1); WHITE BLOOD COUNT 11.26 x10e3/uL (4.8-10.8)
[2024-03-27 06:48] LABS: ALBUMIN 1.7 g/dL (3.5-5.0); ALBUMIN/GLOBULIN RATIO 0.5 (0.8-2.0); ANION GAP 8.6 mmol/L (8-16); BILIRUBIN,TOTAL 0.2 mg/dL (0.2-1.2); CALCIUM 8.8 mg/dL (8.4-10.2); CREATININE, SERUM 1.47 mg/dL (0.57-1.11); POTASSIUM 3.6 mmol/L (3.5-5.1); TOTAL PROTEIN 5.1 g/dL (6.5-8.1)
[2024-03-27 09:36] LABS: BASOPHILS % (MANUAL) 1 % (0-1.5); EOSINOPHILS % (MANUAL) 4 % (0-7); LYMPHOCYTES % (MANUAL) 14 % (19-48); MONOCYTES % (MANUAL) 8 % (3.4-9.0); NEUTROPHILS % (MANUAL) 73 % (40-74)
[2024-03-27 09:37] LABS: PLATELET ESTIMATE ADEQUATE; PLATELET MORPHOLOGY COMMENT NORMAL; RBC MORPHOLOGY COMMENT NORMAL
[2024-03-27] MEDS: BUMETANIDE INJ 0.25MG/ML 4ML VIAL IV ONE (10:13)
[2024-03-27] MEDS: Morphine 2mg Syringe 2 MG/ML SYR IV PRN (18:51)
[2024-03-28] VITALS (8 sets, daily range): BP systolic 120–144; BP diastolic 50–62; PULSE 71–79; RESP 12–22; TEMP 97.9–98.7; O2SAT 95–100
[2024-03-28 06:18] LABS: BASOPHILS # (AUTO) 0.1 (0.0-0.1); EOSINOPHILS # (AUTO) 0.2 (0.0-0.4); HEMATOCRIT 25.3 % (34.2-44.1); HEMOGLOBIN 8.1 g/dL (12.0-16.0); LYMPHOCYTES # (AUTO) 1.5 (1.0-3.2); LYMPHOCYTES % 14.5 % (18.0-39.1); MEAN CORPUSCULAR HEMOGLOBIN 30.6 pg (28-32); MEAN CORPUSCULAR VOLUME 95.5 fL (81-99); MONOCYTES # (AUTO) 1.3 (0.2-0.8); MONOCYTES % 13.2 % (4.4-11.3); NEUTROPHILS # (AUTO) 6.9 (2.1-6.9); NEUTROPHILS % 67.9 % (38.7-80.0); PLATELET COUNT 250 x10e3/uL (140-360); RED BLOOD COUNT 2.65 x10e6/uL (3.6-5.1); RED CELL DISTRIBUTION WIDTH 17.2 % (11.7-14.4); WHITE BLOOD COUNT 10.09 x10e3/uL (4.8-10.8)
[2024-03-28 06:35] LABS: ALBUMIN 1.7 g/dL (3.5-5.0); ALBUMIN/GLOBULIN RATIO 0.5 (0.8-2.0); ANION GAP 10.9 mmol/L (8-16); BILIRUBIN,TOTAL 0.3 mg/dL (0.2-1.2); CALCIUM 8.4 mg/dL (8.4-10.2); CREATININE, SERUM 1.51 mg/dL (0.57-1.11); POTASSIUM 3.9 mmol/L (3.5-5.1); TOTAL PROTEIN 5.1 g/dL (6.5-8.1)
[2024-03-28 07:14] LABS: MAGNESIUM 1.7 MG/DL (1.3-2.1); PHOSPHORUS 3.4 MG/DL (2.3-4.7)
[2024-03-29] VITALS (9 sets, daily range): BP systolic 126–143; BP diastolic 56–66; PULSE 75–88; RESP 16–24; TEMP 97.6–98.5; O2SAT 95–99
[2024-03-29] MEDS: ACETAMINOPHEN 325 MG TAB PO PRN (13:38)
[2024-03-30] VITALS (8 sets, daily range): BP systolic 127–148; BP diastolic 57–95; PULSE 72–78; RESP 18–19; TEMP 98–98.3; O2SAT 96–100
[2024-03-30 03:02] LABS: BASOPHILS # (AUTO) 0.1 (0.0-0.1); BASOPHILS % 0.7 % (0.0-1.0); EOSINOPHILS # (AUTO) 0.2 (0.0-0.4); EOSINOPHILS % 2.1 % (0.0-6.0); HEMATOCRIT 24.1 % (34.2-44.1); HEMOGLOBIN 7.7 g/dL (12.0-16.0); LYMPHOCYTES # (AUTO) 1.2 (1.0-3.2); LYMPHOCYTES % 12.9 % (18.0-39.1); MEAN CORPUSCULAR VOLUME 97.2 fL (81-99); MONOCYTES # (AUTO) 0.9 (0.2-0.8); MONOCYTES % 9.6 % (4.4-11.3); NEUTROPHILS # (AUTO) 6.9 (2.1-6.9); NEUTROPHILS % 73.2 % (38.7-80.0); PLATELET COUNT 267 x10e3/uL (140-360); RED BLOOD COUNT 2.48 x10e6/uL (3.6-5.1); RED CELL DISTRIBUTION WIDTH 17.1 % (11.7-14.4); WHITE BLOOD COUNT 9.46 x10e3/uL (4.8-10.8)
[2024-03-30 03:16] LABS: ALBUMIN 1.7 g/dL (3.5-5.0); ALBUMIN/GLOBULIN RATIO 0.4 (0.8-2.0); ANION GAP 14.5 mmol/L (8-16); BILIRUBIN,TOTAL 0.3 mg/dL (0.2-1.2); CALCIUM 8.3 mg/dL (8.4-10.2); CREATININE, SERUM 1.68 mg/dL (0.57-1.11); POTASSIUM 4.5 mmol/L (3.5-5.1); TOTAL PROTEIN 5.5 g/dL (6.5-8.1)
[2024-03-30 13:42] LABS: ANION GAP 15.8 mmol/L (8-16); CALCIUM 8.4 mg/dL (8.4-10.2); CREATININE, SERUM 1.72 mg/dL (0.57-1.11); POTASSIUM 4.8 mmol/L (3.5-5.1)
[2024-03-30] MEDS ORDERED: HEPARIN SOD/DEXTROSE 5% 25000 UNIT/250 ML BAG IV SCH (15:15)
[2024-03-30] MEDS: HEPARIN 25,000 UNIT/D5W 250ML 250 ML IV SCH (15:40)
[2024-03-31] VITALS (8 sets, daily range): BP systolic 120–144; BP diastolic 58–79; PULSE 70–81; RESP 16–20; TEMP 97.9–98.9; O2SAT 96–99
[2024-03-31 05:52] LABS: HEMATOCRIT 23.5 % (34.2-44.1); HEMOGLOBIN 7.5 g/dL (12.0-16.0); MEAN CORPUSCULAR HEMOGLOBIN 31.1 pg (28-32); MEAN CORPUSCULAR HGB CONC 31.9 g/dL (31-35); MEAN CORPUSCULAR VOLUME 97.5 fL (81-99); RED BLOOD COUNT 2.41 x10e6/uL (3.6-5.1); WHITE BLOOD COUNT 9.65 x10e3/uL (4.8-10.8)
[2024-03-31 05:53] LABS: BASOPHILS # (AUTO) 0.1 (0.0-0.1); BASOPHILS % 0.9 % (0.0-1.0); EOSINOPHILS # (AUTO) 0.2 (0.0-0.4); EOSINOPHILS % 1.8 % (0.0-6.0); LYMPHOCYTES # (AUTO) 1.1 (1.0-3.2); LYMPHOCYTES % 11.3 % (18.0-39.1); MONOCYTES # (AUTO) 0.9 (0.2-0.8); MONOCYTES % 8.9 % (4.4-11.3); NEUTROPHILS # (AUTO) 7.3 (2.1-6.9); NEUTROPHILS % 75.6 % (38.7-80.0); PLATELET COUNT 307 x10e3/uL (140-360); RED CELL DISTRIBUTION WIDTH 17.1 % (11.7-14.4)
[2024-03-31 06:24] LABS: ALBUMIN 1.8 g/dL (3.5-5.0); ALBUMIN/GLOBULIN RATIO 0.5 (0.8-2.0); ANION GAP 14.2 mmol/L (8-16); BILIRUBIN,TOTAL 0.3 mg/dL (0.2-1.2); CALCIUM 8.4 mg/dL (8.4-10.2); CREATININE, SERUM 1.95 mg/dL (0.57-1.11); MAGNESIUM 1.7 MG/DL (1.3-2.1); TOTAL PROTEIN 5.6 g/dL (6.5-8.1)
[2024-03-31 06:32] LABS: POTASSIUM 5.2 mmol/L (3.5-5.1)
[2024-03-31] MEDS: LIDOCAINE 4% PATCH TP SCH (08:34)
[2024-03-31] MEDS: DEXTROSE 50% SYRINGE 50 ML IV STA (10:56)
[2024-03-31] MEDS: INSULIN REGULAR, HUMAN 100 UNIT/1 ML IV ONE (10:58)
[2024-03-31] MEDS: BUMETANIDE INJ 0.25MG/ML 4ML VIAL IV SCH (14:03)
[2024-03-31] MEDS: HEPARIN 25,000 UNIT/D5W 250ML 250 ML IV SCH (15:01)
[2024-03-31] MEDS: ZOLPIDEM TARTRATE 10 MG TAB PO SCH (20:03)
[2024-03-31] MEDS: CENTRAL TPN FORMULA 1 BAG IV SCH (20:39)
[2024-03-31] MEDS ORDERED: BUMETANIDE INJ 0.25MG/ML 4ML VIAL IV SCH (21:00)
[2024-04-01] VITALS (10 sets, daily range): BP systolic 119–141; BP diastolic 50–80; PULSE 62–77; RESP 16–20; TEMP 97.7–98.9; O2SAT 95–100
[2024-04-01 06:19] LABS: BASOPHILS # (AUTO) 0.1 (0.0-0.1); BASOPHILS % 0.8 % (0.0-1.0); EOSINOPHILS # (AUTO) 0.2 (0.0-0.4); EOSINOPHILS % 1.7 % (0.0-6.0); HEMATOCRIT 24.2 % (34.2-44.1); HEMOGLOBIN 7.8 g/dL (12.0-16.0); LYMPHOCYTES # (AUTO) 1.2 (1.0-3.2); LYMPHOCYTES % 11.2 % (18.0-39.1); MEAN CORPUSCULAR HEMOGLOBIN 31.5 pg (28-32); MEAN CORPUSCULAR HGB CONC 32.2 g/dL (31-35); MEAN CORPUSCULAR VOLUME 97.6 fL (81-99); MONOCYTES # (AUTO) 0.8 (0.2-0.8); MONOCYTES % 6.9 % (4.4-11.3); NEUTROPHILS # (AUTO) 8.6 (2.1-6.9); NEUTROPHILS % 78.7 % (38.7-80.0); PLATELET COUNT 322 x10e3/uL (140-360); RED BLOOD COUNT 2.48 x10e6/uL (3.6-5.1); WHITE BLOOD COUNT 10.88 x10e3/uL (4.8-10.8)
[2024-04-01 06:40] LABS: ALBUMIN/GLOBULIN RATIO 0.5 (0.8-2.0); ANION GAP 16.4 mmol/L (8-16); BILIRUBIN,TOTAL 0.2 mg/dL (0.2-1.2); CALCIUM 8.6 mg/dL (8.4-10.2); CREATININE, SERUM 1.85 mg/dL (0.57-1.11); POTASSIUM 4.4 mmol/L (3.5-5.1); TOTAL PROTEIN 5.9 g/dL (6.5-8.1)
[2024-04-01] MEDS: CITALOPRAM HYDROBROMIDE 20 MG TAB PO SCH (09:07)
[2024-04-01] MEDS: BUMETANIDE INJ 0.25MG/ML 4ML VIAL IV SCH (15:14)
[2024-04-02] VITALS (10 sets, daily range): BP systolic 117–158; BP diastolic 60–71; PULSE 70–88; RESP 16–20; TEMP 97.7–98.3; O2SAT 95–100
[2024-04-02] MEDS: CENTRAL TPN FORMULA 1 BAG IV SCH ×2 (01:00→20:00)
[2024-04-02 07:01] LABS: BASOPHILS # (AUTO) 0.1 (0.0-0.1); BASOPHILS % 0.6 % (0.0-1.0); EOSINOPHILS # (AUTO) 0.2 (0.0-0.4); EOSINOPHILS % 1.5 % (0.0-6.0); HEMATOCRIT 26.6 % (34.2-44.1); HEMOGLOBIN 8.4 g/dL (12.0-16.0); LYMPHOCYTES # (AUTO) 1.2 (1.0-3.2); MEAN CORPUSCULAR HEMOGLOBIN 30.8 pg (28-32); MEAN CORPUSCULAR HGB CONC 31.6 g/dL (31-35); MEAN CORPUSCULAR VOLUME 97.4 fL (81-99); MONOCYTES % 7.5 % (4.4-11.3); NEUTROPHILS # (AUTO) 10.7 (2.1-6.9); NEUTROPHILS % 80.6 % (38.7-80.0); PLATELET COUNT 294 x10e3/uL (140-360); RED BLOOD COUNT 2.73 x10e6/uL (3.6-5.1); RED CELL DISTRIBUTION WIDTH 17.2 % (11.7-14.4); WHITE BLOOD COUNT 13.29 x10e3/uL (4.8-10.8)
[2024-04-02 07:25] LABS: ALBUMIN 2.1 g/dL (3.5-5.0); ALBUMIN/GLOBULIN RATIO 0.5 (0.8-2.0); ANION GAP 18.1 mmol/L (8-16); BILIRUBIN,TOTAL 0.3 mg/dL (0.2-1.2); CALCIUM 8.7 mg/dL (8.4-10.2); CREATININE, SERUM 1.93 mg/dL (0.57-1.11); MAGNESIUM 1.6 MG/DL (1.3-2.1); PHOSPHORUS 4.4 MG/DL (2.3-4.7); POTASSIUM 4.1 mmol/L (3.5-5.1); TOTAL PROTEIN 6.3 g/dL (6.5-8.1)
[2024-04-02] MEDS ORDERED: BUPIVACAINE 0.25% 30ML SDV ONE (09:10)
[2024-04-02] MEDS ORDERED: DEXTROSE IV ONE (09:45)
[2024-04-02] MEDS ORDERED: SOD CHL IV ONE (09:45)
[2024-04-02] MEDS ORDERED: NEOMYCIN/POLYMYX/BACITR OINT 0.9 GM PKT ONE (10:58)
[2024-04-02] MEDS ORDERED: ACETAMINOPHEN 1000 MG/100 ML IV PRN (11:15)
[2024-04-02] MEDS ORDERED: DEXMEDETOMIDINE HCL 2 ML ONE (11:45)
[2024-04-02] MEDS ORDERED: ACETAMINOPHEN 1000 MG/100 ML 100 ML IV ONE (11:46)
[2024-04-02] MEDS ORDERED: FENTANYL CITRATE/PF 100MCG/2 ML INJ ONE ×2 (11:46→12:36)
[2024-04-02] MEDS ORDERED: SUCCINYLCHOLINE CHLORIDE 20 MG/ML 10ML VIAL ONE (12:17)
[2024-04-02] MEDS ORDERED: DEXAMETHASONE SOD PHOS INJ 4 MG/ML SDV ONE (12:17)
[2024-04-02] MEDS ORDERED: ATROPINE SULFATE 1 MG/ML VIAL ONE (12:17)
[2024-04-02] MEDS ORDERED: ROCURONIUM BROMIDE 10 MG/ML 5ML VIAL IV ONE (12:17)
[2024-04-02] MEDS ORDERED: METOPROLOL TARTRATE INJ 1 MG/ML VIAL ONE (12:17)
[2024-04-02] MEDS ORDERED: GLYCOPYRROLATE INJ 0.2 MG/ML VIAL ONE (12:17)
[2024-04-02] MEDS ORDERED: LIDOCAINE HCL 2% LOCAL INJ 5 ML SDV VIAL INJ ONE (12:17)
[2024-04-02] MEDS ORDERED: SEVOFLURANE INHAL SOLN 250 ML PEN BTL ONE (12:17)
[2024-04-02] MEDS ORDERED: ONDANSETRON HCL INJ 2MG/ML 2ML 2 MG/ML VIAL ONE (12:17)
[2024-04-02] MEDS ORDERED: NALOXONE HCL INJ 0.4 MG/ML AMP ONE (12:17)
[2024-04-02] MEDS ORDERED: ALBUTEROL 90 MCG/ACT INHALER INH ONE (12:17)
[2024-04-02] MEDS ORDERED: FAMOTIDINE 20 MG/2 ML VIAL IV ONE (12:17)
[2024-04-02] MEDS ORDERED: NEOSTIGMINE 1 MG/ML 10ML VIAL ONE (12:17)
[2024-04-02] MEDS ORDERED: ETOMIDATE 2 MG/ML 10 ML INJ IV ONE (12:17)
[2024-04-02] MEDS ORDERED: PROPOFOL IV EMULSION 10 MG/ML 20 ML VIAL ONE (12:17)
[2024-04-02] MEDS ORDERED: FUROSEMIDE INJ 10 MG/ML 4 ML VIAL ONE (12:17)
[2024-04-02] MEDS ORDERED: METOCLOPRAMIDE HCL 10 MG/2ML VIAL ONE (12:17)
[2024-04-02] MEDS: SODIUM CHLORIDE 0.9% 250ML 250 ML IV ONE (13:17)
[2024-04-02] MEDS: ALBUTEROL SULF 0.083% NEB SOLN 3 ML NEB ONE (13:18)
[2024-04-02] MEDS: SUGAMMADEX SODIUM 200 MG/2 ML VIAL IV ONE (13:19)
[2024-04-02] MEDS: ZOLPIDEM TARTRATE 10 MG TAB PO PRN (20:33)
[2024-04-03] VITALS (10 sets, daily range): BP systolic 133–164; BP diastolic 72–85; PULSE 75–117; RESP 16–20; TEMP 97.9–98.5; O2SAT 95–99
[2024-04-03] MEDS: MAGNESIUM SULFATE 2GM/50ML 50 ML IV ONE (03:45)
[2024-04-03 03:49] LABS: BASOPHILS % 0.1 % (0.0-1.0); HEMATOCRIT 24.4 % (34.2-44.1); HEMOGLOBIN 7.8 g/dL (12.0-16.0); LYMPHOCYTES # (AUTO) 0.8 (1.0-3.2); LYMPHOCYTES % 4.8 % (18.0-39.1); MEAN CORPUSCULAR HEMOGLOBIN 31.1 pg (28-32); MEAN CORPUSCULAR VOLUME 97.2 fL (81-99); MONOCYTES % 6.1 % (4.4-11.3); NEUTROPHILS # (AUTO) 14.6 (2.1-6.9); NEUTROPHILS % 88.4 % (38.7-80.0); PLATELET COUNT 346 x10e3/uL (140-360); RED BLOOD COUNT 2.51 x10e6/uL (3.6-5.1); RED CELL DISTRIBUTION WIDTH 17.1 % (11.7-14.4); WHITE BLOOD COUNT 16.56 x10e3/uL (4.8-10.8)
[2024-04-03 04:08] LABS: ALBUMIN/GLOBULIN RATIO 0.5 (0.8-2.0); ANION GAP 16.7 mmol/L (8-16); BILIRUBIN,TOTAL 0.2 mg/dL (0.2-1.2); CALCIUM 8.4 mg/dL (8.4-10.2); CREATININE, SERUM 2.04 mg/dL (0.57-1.11); MAGNESIUM 1.7 MG/DL (1.3-2.1); PHOSPHORUS 3.8 MG/DL (2.3-4.7); POTASSIUM 3.7 mmol/L (3.5-5.1)
[2024-04-03] MEDS: HYDROMORPHONE 1MG/1ML INJ IV PRN (11:01)
[2024-04-03] MEDS: BUMETANIDE 10 MG in SODIUM CHLORIDE 0.9% 60 ML IV SCH (12:10)
[2024-04-03] MEDS: LORAZEPAM INJ 2 MG/ML VIAL IV PRN (12:33)
[2024-04-04] VITALS (8 sets, daily range): BP systolic 146–165; BP diastolic 70–91; PULSE 73–107; RESP 17–20; TEMP 98.1–98.9; O2SAT 95–99
[2024-04-04 06:00] LABS: BASOPHILS # (AUTO) 0.1 (0.0-0.1); BASOPHILS % 0.3 % (0.0-1.0); EOSINOPHILS # (AUTO) 0.2 (0.0-0.4); HEMATOCRIT 28.1 % (34.2-44.1); HEMOGLOBIN 8.8 g/dL (12.0-16.0); LYMPHOCYTES # (AUTO) 1.1 (1.0-3.2); LYMPHOCYTES % 5.6 % (18.0-39.1); MEAN CORPUSCULAR HEMOGLOBIN 30.7 pg (28-32); MEAN CORPUSCULAR HGB CONC 31.3 g/dL (31-35); MEAN CORPUSCULAR VOLUME 97.9 fL (81-99); MONOCYTES # (AUTO) 1.5 (0.2-0.8); NEUTROPHILS # (AUTO) 16.2 (2.1-6.9); NEUTROPHILS % 84.5 % (38.7-80.0); PLATELET COUNT 339 x10e3/uL (140-360); RED BLOOD COUNT 2.87 x10e6/uL (3.6-5.1); RED CELL DISTRIBUTION WIDTH 17.2 % (11.7-14.4); WHITE BLOOD COUNT 19.14 x10e3/uL (4.8-10.8)
[2024-04-04 06:27] LABS: ALBUMIN/GLOBULIN RATIO 0.5 (0.8-2.0); ALKALINE PHOSPHATASE 170 IU/L (40-150); ANION GAP 18.3 mmol/L (8-16); BILIRUBIN,TOTAL 0.3 mg/dL (0.2-1.2); BLOOD UREA NITROGEN 92 mg/dL (7-26); BUN/CREATININE RATIO 43 (6-25); CALCIUM 8.8 mg/dL (8.4-10.2); CARBON DIOXIDE 22 mmol/L (22-29); CHLORIDE 102 mmol/L (98-107); CREATININE, SERUM 2.15 mg/dL (0.57-1.11); EST GLOMERULAR FILTRATION RATE 21 ML/MIN (>=60); GLUCOSE 151 mg/dL (74-118); MAGNESIUM 2.4 MG/DL (1.3-2.1); PHOSPHORUS 4.2 MG/DL (2.3-4.7); SODIUM 139 mmol/L (136-145); TOTAL PROTEIN 6.2 g/dL (6.5-8.1)
[2024-04-04 06:32] LABS: POTASSIUM 3.3 mmol/L (3.5-5.1)
[2024-04-04 07:15] LABS: ALANINE AMINOTRANSFERASE < 6 IU/L (0-55)
[2024-04-04] MEDS: POTASSIUM CHLORIDE 20MEQ/100ML 100 ML IV ONE (16:52)
[2024-04-04] MEDS: HYDROMORPHONE 1MG/1ML INJ IV PRN (18:35)
[2024-04-04] MEDS: CENTRAL TPN FORMULA 1 BAG IV SCH (20:50)
[2024-04-05 03:16] VITALS: BP 169/75; PULSE 110; RESP 18; TEMP 99.4; O2SAT 90
[2024-04-05 04:32] VITALS: BP 169/75; PULSE 110; RESP 18; TEMP 99.4; O2SAT 90
[2024-04-05 06:30] VITALS: PULSE 77; RESP 19; O2SAT 96
[2024-04-05 06:55] LABS: BASOPHILS # (AUTO) 0.1 (0.0-0.1); BASOPHILS % 0.2 % (0.0-1.0); EOSINOPHILS % 0.2 % (0.0-6.0); HEMATOCRIT 28.4 % (34.2-44.1); HEMOGLOBIN 9.3 g/dL (12.0-16.0); LYMPHOCYTES # (AUTO) 1.2 (1.0-3.2); LYMPHOCYTES % 5.4 % (18.0-39.1); MEAN CORPUSCULAR HEMOGLOBIN 31.2 pg (28-32); MEAN CORPUSCULAR HGB CONC 32.7 g/dL (31-35); MEAN CORPUSCULAR VOLUME 95.3 fL (81-99); MONOCYTES # (AUTO) 1.7 (0.2-0.8); MONOCYTES % 7.8 % (4.4-11.3); NEUTROPHILS # (AUTO) 18.3 (2.1-6.9); NEUTROPHILS % 85.7 % (38.7-80.0); PLATELET COUNT 371 x10e3/uL (140-360); RED BLOOD COUNT 2.98 x10e6/uL (3.6-5.1); WHITE BLOOD COUNT 21.37 x10e3/uL (4.8-10.8)
[2024-04-05 07:15] LABS: ALBUMIN/GLOBULIN RATIO 0.4 (0.8-2.0); ALKALINE PHOSPHATASE 164 IU/L (40-150); ANION GAP 19.7 mmol/L (8-16); BILIRUBIN,TOTAL 0.2 mg/dL (0.2-1.2); BLOOD UREA NITROGEN 94 mg/dL (7-26); BUN/CREATININE RATIO 40 (6-25); CALCIUM 9.7 mg/dL (8.4-10.2); CARBON DIOXIDE 29 mmol/L (22-29); CHLORIDE 95 mmol/L (98-107); CREATININE, SERUM 2.34 mg/dL (0.57-1.11); EST GLOMERULAR FILTRATION RATE 19 ML/MIN (>=60); GLUCOSE 197 mg/dL (74-118); SODIUM 141 mmol/L (136-145); TOTAL PROTEIN 6.7 g/dL (6.5-8.1)
[2024-04-05 07:19] LABS: ALANINE AMINOTRANSFERASE < 6 IU/L (0-55); POTASSIUM 2.7 mmol/L (3.5-5.1)
[2024-04-05] MEDS: POTASSIUM CHLORIDE 20MEQ/100ML 100 ML IV SCH (08:29)
[2024-04-05] MEDS ORDERED: HEPARIN SOD/DEXTROSE 5% 25000 UNIT/250 ML BAG IV SCH (09:15)
[2024-04-05] MEDS: SODIUM CHLORIDE 0.9% 1000ML 1,000 ML IV SCH (10:30)
[2024-04-05] MEDS: HEPARIN 25,000 UNIT/D5W 250ML 250 ML IV SCH (11:08)
[2024-04-05] MEDS: POTASSIUM CHLORIDE 20MEQ/100ML 200 ML IV ONE (12:16)
[2024-04-05] MEDS: HYDROMORPHONE 1MG/1ML INJ IV PRN (17:59)
[2024-04-05 19:06] VITALS: PULSE 98; RESP 20; O2SAT 93
[2024-04-05 19:51] VITALS: BP 154/59; PULSE 100; RESP 18; TEMP 97.5; O2SAT 100
[2024-04-05] MEDS: CENTRAL TPN FORMULA 1 BAG IV SCH (20:54)
[2024-04-05 23:36] VITALS: BP 146/58; PULSE 94; RESP 18; TEMP 97.8; O2SAT 95
[2024-04-06] VITALS (9 sets, daily range): BP systolic 146–178; BP diastolic 58–89; PULSE 87–118; RESP 18–22; TEMP 97.8–99; O2SAT 94–98
[2024-04-06 08:28] LABS: BASOPHILS # (AUTO) 0.1 (0.0-0.1); BASOPHILS % 0.3 % (0.0-1.0); EOSINOPHILS # (AUTO) 0.1 (0.0-0.4); EOSINOPHILS % 0.3 % (0.0-6.0); HEMOGLOBIN 8.2 g/dL (12.0-16.0); LYMPHOCYTES # (AUTO) 1.4 (1.0-3.2); LYMPHOCYTES % 7.1 % (18.0-39.1); MEAN CORPUSCULAR HEMOGLOBIN 31.3 pg (28-32); MEAN CORPUSCULAR HGB CONC 32.8 g/dL (31-35); MEAN CORPUSCULAR VOLUME 95.4 fL (81-99); MONOCYTES # (AUTO) 1.4 (0.2-0.8); MONOCYTES % 6.7 % (4.4-11.3); NEUTROPHILS # (AUTO) 17.3 (2.1-6.9); NEUTROPHILS % 84.6 % (38.7-80.0); PLATELET COUNT 314 x10e3/uL (140-360); RED BLOOD COUNT 2.62 x10e6/uL (3.6-5.1); RED CELL DISTRIBUTION WIDTH 17.2 % (11.7-14.4); WHITE BLOOD COUNT 20.39 x10e3/uL (4.8-10.8)
[2024-04-06 08:49] LABS: ALBUMIN 1.7 g/dL (3.5-5.0); ALBUMIN/GLOBULIN RATIO 0.4 (0.8-2.0); ALKALINE PHOSPHATASE 146 IU/L (40-150); ANION GAP 15.5 mmol/L (8-16); BILIRUBIN,TOTAL 0.3 mg/dL (0.2-1.2); BLOOD UREA NITROGEN 97 mg/dL (7-26); BUN/CREATININE RATIO 42 (6-25); CALCIUM 9.5 mg/dL (8.4-10.2); CARBON DIOXIDE 35 mmol/L (22-29); CHLORIDE 94 mmol/L (98-107); CREATININE, SERUM 2.32 mg/dL (0.57-1.11); EST GLOMERULAR FILTRATION RATE 20 ML/MIN (>=60); GLUCOSE 220 mg/dL (74-118); MAGNESIUM 2.3 MG/DL (1.3-2.1); SODIUM 142 mmol/L (136-145); TOTAL PROTEIN 6.1 g/dL (6.5-8.1)
[2024-04-06 08:50] LABS: ALANINE AMINOTRANSFERASE < 6 IU/L (0-55); POTASSIUM 2.5 mmol/L (3.5-5.1)
[2024-04-06] MEDS: POTASSIUM CHLORIDE 20MEQ/100ML 300 ML IV ONE (10:11)
[2024-04-06] MEDS: HYDROMORPHONE 1MG/1ML INJ IV PRN (20:19)
[2024-04-06] MEDS: CENTRAL TPN FORMULA 1 BAG IV SCH (20:43)
[2024-04-07] VITALS (9 sets, daily range): BP systolic 151–172; BP diastolic 64–98; PULSE 64–114; RESP 16–20; TEMP 97.8–98.2; O2SAT 93–99
[2024-04-07] MEDS: DEXTROSE 10% 1,000 ML IV ONE (22:27)
[2024-04-08 01:39] VITALS: BP 151/63; PULSE 84; RESP 16; TEMP 98.2; O2SAT 100
[2024-04-08 06:56] VITALS: PULSE 107; RESP 20; O2SAT 97
[2024-04-08 07:20] LABS: ALBUMIN 1.6 g/dL (3.5-5.0); ALBUMIN/GLOBULIN RATIO 0.4 (0.8-2.0); ANION GAP 15.4 mmol/L (8-16); BILIRUBIN,TOTAL 0.3 mg/dL (0.2-1.2); CALCIUM 9.2 mg/dL (8.4-10.2); CREATININE, SERUM 2.23 mg/dL (0.57-1.11)
[2024-04-08 07:22] LABS: POTASSIUM 2.4 mmol/L (3.5-5.1)
[2024-04-08] MEDS ORDERED: POTASSIUM CHLORIDE 10MEQ EA PO ONE (08:30)
[2024-04-08 09:14] VITALS: BP 152/68
[2024-04-08] MEDS: POTASSIUM CHLORIDE 20MEQ/100ML 100 ML IV SCH (09:52)
== END 2024-04-08 12:28 | disposition hospice, home (50) | DRG 682 ==
LOC: ER 12:41 → ERHOLD 14:30 → MED/SURG3 16:30 → ICU 03-04 23:57 → MED/SURG2 03-22 17:12
PROVIDERS: ADMIT Internal Medicine; ATTEND Internal Medicine
PROC: 3E0333Z Introduction of Anti-inflammatory into Peripheral Vein, Percutaneous Approach (ICD-10-PCS; 2024-02-28)
PROC: 02HV33Z Insertion of Infusion Device into Superior Vena Cava, Percutaneous Approach (ICD-10-PCS; 2024-03-05)
PROC: 3E0336Z Introduction of Nutritional Substance into Peripheral Vein, Percutaneous Approach (ICD-10-PCS; 2024-03-05)
PROC: 0T9B70Z Drainage of Bladder with Drainage Device, Via Natural or Artificial Opening (ICD-10-PCS; 2024-03-05)
PROC: 3E033XZ Introduction of Vasopressor into Peripheral Vein, Percutaneous Approach (ICD-10-PCS; 2024-03-06)
PROC: 30233N1 Transfusion of Nonautologous Red Blood Cells into Peripheral Vein, Percutaneous Approach (ICD-10-PCS; 2024-03-12)
PROC: 02HV33Z Insertion of Infusion Device into Superior Vena Cava, Percutaneous Approach (ICD-10-PCS; 2024-03-13)
PROC: 02H633Z Insertion of Infusion Device into Right Atrium, Percutaneous Approach (ICD-10-PCS; 2024-03-17)
PROC: 0W993ZZ Drainage of Right Pleural Cavity, Percutaneous Approach (ICD-10-PCS; 2024-03-18)
PROC: 0DH63UZ Insertion of Feeding Device into Stomach, Percutaneous Approach (ICD-10-PCS; principal; 2024-04-02 09:56)
DX: N17.0 Acute kidney failure with tubular necrosis (principal); A41.9 Sepsis, unspecified organism; R65.21 Severe sepsis with septic shock; J69.0 Pneumonitis due to inhalation of food and vomit; E43 Unspecified severe protein-calorie malnutrition; I44.2 Atrioventricular block, complete; R64 Cachexia; I82.621 Acute embolism and thrombosis of deep veins of right upper extremity; E87.20 Acidosis, unspecified; J90 Pleural effusion, not elsewhere classified; K56.7 Ileus, unspecified; E87.1 Hypo-osmolality and hyponatremia; N39.0 Urinary tract infection, site not specified; Z16.12 Extended spectrum beta lactamase (ESBL) resistance; T82.7XXA Infection and inflammatory reaction due to other cardiac and vascular devices, implants and grafts, initial encounter; Z66 Do not resuscitate; Z51.5 Encounter for palliative care; I27.29 Other secondary pulmonary hypertension; I49.5 Sick sinus syndrome; D69.6 Thrombocytopenia, unspecified; L89.156 Pressure-induced deep tissue damage of sacral region; R62.7 Adult failure to thrive; E11.43 Type 2 diabetes mellitus with diabetic autonomic (poly)neuropathy; E11.22 Type 2 diabetes mellitus with diabetic chronic kidney disease; N18.32 Chronic kidney disease, stage 3b; D63.1 Anemia in chronic kidney disease; E86.0 Dehydration; K44.9 Diaphragmatic hernia without obstruction or gangrene; I12.9 Hypertensive chronic kidney disease with stage 1 through stage 4 chronic kidney disease, or unspecified chronic kidney disease; K21.9 Gastro-esophageal reflux disease without esophagitis; E03.9 Hypothyroidism, unspecified; I25.10 Atherosclerotic heart disease of native coronary artery without angina pectoris; R53.81 Other malaise; F41.9 Anxiety disorder, unspecified; R11.2 Nausea with vomiting, unspecified; K31.84 Gastroparesis; I35.0 Nonrheumatic aortic (valve) stenosis; E87.6 Hypokalemia; D64.9 Anemia, unspecified; E83.42 Hypomagnesemia; E83.51 Hypocalcemia; Z68.22 Body mass index [BMI] 22.0-22.9, adult; D72.819 Decreased white blood cell count, unspecified; R06.4 Hyperventilation; K11.20 Sialoadenitis, unspecified; R19.7 Diarrhea, unspecified; B96.20 Unspecified Escherichia coli [E. coli] as the cause of diseases classified elsewhere; B96.5 Pseudomonas (aeruginosa) (mallei) (pseudomallei) as the cause of diseases classified elsewhere; B95.1 Streptococcus, group B, as the cause of diseases classified elsewhere; Z79.890 Hormone replacement therapy; Z90.49 Acquired absence of other specified parts of digestive tract; Z90.710 Acquired absence of both cervix and uterus; Z95.810 Presence of automatic (implantable) cardiac defibrillator; Z85.42 Personal history of malignant neoplasm of other parts of uterus; Z92.3 Personal history of irradiation; Z82.49 Family history of ischemic heart disease and other diseases of the circulatory system; Z84.1 Family history of disorders of kidney and ureter; Z80.0 Family history of malignant neoplasm of digestive organs; Y84.9 Medical procedure, unspecified as the cause of abnormal reaction of the patient, or of later complication, without mention of misadventure at the time of the procedure
CPT/HCPCS: 32555; 36415; 36556; 36584; 43246; 70450; 71045; 71250; 74018; 74019; 74150; 74176; 74470; 76536; 76604; 76770; 76937; 77001; 80048; 80053; 80202; 81001; 82040; 82550; 82728; 82945; 82948; 83540; 83605; 83615; 83735; 84100; 84466; 84484; 85007; 85025; 85027; 85610; 85730; 86850; 86900; 86920; 87040; 87070; 87071; 87075; 87086; 87186; 87205; 88112; 88305; 89051; 93005; 93306; 93971; 94660; 94799; 99252; 99284; C1729; C1769; J0330; J0360; J0461; J0690; J0692; J0696; J1100; J1170; J1200; J1450; J1940; J2001; J2060; J2185; J2248; J2270; J2310; J2405; J2470; J2543; J2550; J2710; J2765; J3370; J3475; J3480; J7030; J7040; J7042; J7050; J7070; J7799; P9016; Q0162; Q9963